=== PATIENT | male | born 1985 | race African-American/Black ===

== ENCOUNTER 2018-03-25 14:17 | Inpatient (IN) | payer OTHER ==
[~2018-03-25] VITALS: Ht 172.7 cm; Wt 79.5 kg
[2018-03-25 14:38] VITALS: Ht 172.7 cm; Wt 79.5 kg
--- NOTE | 2018-03-25 14:48 | ERD ---
ER Documentation Chief Complaint Chief Complaint R90, bs 125, Seizure [id number], chest pain, no visible trauma, no distress HPI The patient is a 32-year-old male, presenting to the ER because of possible seizure at 7-11. He was postictal when EMS arrived, he was still postictal when he arrived to the ER but became coherent shortly after. He stated that he fell did not remember exactly what happened, he denies tongue bite, urinary/fecal incontinence, denies headache, facial pain, neck pain. He complains of substernal chest pain without radiation, denies chest pain with vomiting/radiation/exertion/diaphoresis, dyspnea, abdominal pain, vomiting, dizzy, diarrhea. He denies illicit drug, smokes and drinks Past medical history: History of CHF, chronic kidney disease, hypertension Past surgical history: Right inguinal herniorrhaphy ROS All systems reviewed and are negative except as per history of present illness. Medications Home Meds Reported Medications Hydralazine Hcl* (Hydralazine Hcl*) 100 Mg Tablet, 100 MG PO Q8 PRN for ELEVATED BLOOD PRESSURE, #90 TAB 03/25/18 Allergies Allergies: Coded Allergies: No Known Allergy (Unverified , 03/25/18) PMhx/Soc Hx Miscellaneous Medical Probl: Yes (Seizure) Hx Alcohol Use: No Hx Substance Use: No Hx Tobacco Use: No Smoking Status: Never smoker Physical Exam Vitals Vital Signs Date Temp Pulse Resp B/P (MAP) Pulse Ox O2 O2 Flow FiO2 Time Delivery Rate 03/25/18 83 22 159/109 96 Room Air 18:13 (126) 03/25/18 76 24 171/123 97 Room Air 16:00 (139) 03/25/18 98.4 85 22 181/126 97 14:38 (144) Physical Exam Const: No acute distress. Head: Atraumatic. Eyes: Normal Conjunctiva. ENT: Normal External Ears, Nose and Mouth. Neck: Full range of motion. No meningismus. Resp: Clear to auscultation bilaterally. Cardio: Regular rate and rhythm. Abd: Soft, non distended, normal bowel sounds, non tender. Skin: No petechiae or rashes. Back: No midline or flank tenderness. Ext: No cyanosis, or edema. Neur: Awake and alert. No focal deficit Psych: Normal Mood and Affect. Result Diagram: 03/25/18 1520 03/25/18 1520 Results 24 hrs Laboratory Tests Test 03/25/18 14:32 03/25/18 15:20 03/25/18 15:30 Bedside Glucose 98 mg/dL White Blood Count 5.9 10^3/ul Red Blood Count 5.43 10^6/ul Hemoglobin 12.6 g/dl Hematocrit 39.9 % Mean Corpuscular Volume 73.5 fl Mean Corpuscular Hemoglobin 23.2 pg Mean Corpuscular 31.6 g/dl Hemoglobin Concent Red Cell Distribution Width 18.6 % Platelet Count 258 10^3/UL Mean Platelet Volume 12.0 fl Immature Granulocytes % 1.200 % Neutrophils % 65.1 % Lymphocytes % 19.9 % Monocytes % 11.8 % Eosinophils % 1.7 % Basophils % 0.3 % Nucleated Red Blood Cells % 0.0 /100WBC Immature Granulocytes # 0.070 10^3/ul Neutrophils # 3.8 10^3/ul Lymphocytes # 1.2 10^3/ul Monocytes # 0.7 10^3/ul Eosinophils # 0.1 10^3/ul Basophils # 0.0 10^3/ul Nucleated Red Blood Cells # 0.0 10^3/ul Prothrombin Time 12.9 Sec Prothrombin Time Ratio 1.0 INR International Normalized Ratio 0.96 Activated Partial Thromboplast 27.4 Sec Time Sodium Level 140 mmol/L Potassium Level 3.1 mmol/L Chloride Level 99 mmol/L Carbon Dioxide Level 25 mmol/L Anion Gap 16 Blood Urea Nitrogen 42 mg/dl Creatinine 4.67 mg/dl Est Glomerular Filtrat Rate mL/min 15 mL/min Glucose Level 103 mg/dl Calcium Level 9.6 mg/dl Total Bilirubin 0.0 mg/dl Direct Bilirubin 0.00 mg/dl Indirect Bilirubin 0.0 mg/dl Aspartate Amino Transf (AST/SGOT) 39 IU/L Alanine 6 IU/L Aminotransferase (ALT/SGPT) Alkaline Phosphatase 75 IU/L Troponin I 0.142 ng/ml Total Protein 7.9 g/dl Albumin 4.1 g/dl Globulin 3.80 g/dl Albumin/Globulin Ratio 1.07 Ethyl Alcohol Level < 10.0 mg/dl Urine Opiates Screen NEGATIVE Urine Barbiturates NEGATIVE Urine Amphetamines Screen POSITIVE Urine Benzodiazepines Screen NEGATIVE Urine Cocaine Screen NEGATIVE Urine Cannabinoids POSITIVE Current Medications Medications Dose Sig/Jen Start Time Status Last (Trade) Ordered Route PRN Stop Time Admin Dose Reason Admin 100 ml @ ONCE ONCE 03/25/18 DC 03/25/18 Levetiracetam 400 mls/hr IVPB 15:00 15:24 03/25/18 15:14 Sodium 1,000 ml @ Q10H IV 03/25/18 DC Chloride 100 mls/hr 18:46 03/25/18 18:59 IV Flush 3 ml PER 03/25/18 (NS 3 ml) PROTOCOL IV 19:00 Ondansetron 4 mg Q6H PRN 03/25/18 03/25/18 HCl (Zofran IV NAUSEA 19:00 19:10 Inj) AND/OR VOMITING 650 mg Q6H PRN 03/25/18 Acetaminophen PO PAIN 19:00 (Tylenol LEVEL 1-3 OR Tab) FEVER 1 tab Q6H PRN 03/25/18 Acetaminophen PO MODERATE 19:00 / PAIN LEVEL Hydrocodone 4-6 Bitart ([place] (5/325)) Morphine 2 mg Q4H PRN 03/25/18 03/25/18 Sulfate IV SEVERE 19:00 19:11 (morphine) PAIN LEVEL 7-10 Docusate 100 mg Q12H PRN 03/25/18 Sodium PO 19:00 (Colace) CONSTIPATION Zolpidem 5 mg QHS PRN 03/25/18 Tartrate PO SLEEP 19:00 (Ambien) 100 ml @ Q12 IVPB 03/25/18 Levetiracetam 400 mls/hr 21:00 1,011.2 ml DAILY@09 03/26/18 Multivitamins @ 125 mls/ IVPB 09:00 10 hr ml/Thiamine HCl 100 mg/Folic Acid 1 mg/Sodium Chloride Lorazepam 1 mg Q2H PRN 03/25/18 03/25/18 (Ativan) IV CONTROL 19:00 19:30 WITHDRAWAL SYMPTOMS Potassium 1,015 ml @ Q10H9M IV 03/25/18 03/25/18 Chloride 30 100 mls/hr 19:00 19:31 meq/ Sodium Chloride Procedures/[address] [address] Radiology Main Line: [phone] DIAGNOSTIC IMAGING REPORT Patient: DONAVON LEE : 1985 Age: 32 Sex: M MR #: [id number] DOS: 03/25/18 1455 Ordering MD: LINK HERRERA MD Location: E/R Room/Bed: PROCEDURE: CT Brain without contrast. CLINICAL INDICATION: Altered mental status, seizures TECHNIQUE: Routine CT scan of the brain was performed on a high resolution multi detector scanner without intravenous contrast. One or more of the following dose reduction techniques were used: Automated exposure control; Adjustment of the mA and/or kV according to patient size; Use of iterative recon struction technique. CTDI = 38 mGy. DLP = 634 mGy-cm. DICOM images are available. COMPARISON: No prior relevant examinations are available for comparison. FINDINGS: Hemorrhage: 14 mm acute intraparenchymal hematoma within the inferior right frontal lobe. Acute ischemic changes: No evidence of acute ischemic changes. Mass effect: None. Parenchymal volume: Within normal limits for age. Ventricular system: Concordant with parenchymal volume. Chronic changes: Advanced white matter changes are present which are premature for the patient's age. Extracranial soft tissues: Minimal soft tissue swelling of the scalp at the vertex. Calvarium: No fractures. Paranasal sinuses: Visualized paranasal sinuses are clear. Mastoid air cells: Visualized mastoid air cells are clear. IMPRESSION: 14 mm acute intraparenchymal hematoma within the inferior right frontal lobe. Advanced white matter changes are present which are premature for the patient's age. MRI of the brain with and without contrast recommended for further evaluation. Critical results were discussed with Link Lowe by telephone 03/25/2018 4:18:[address] Mason Perkins RPTAT: AADD .Mason Perkins MD, MD Date Time Electronically viewed and signed by .Mason Perkins MD, on 03/25/2018 16:21 .B/ CC: LINK HERRERA MD [phone] [place] [address] Radiology Main Line: [phone] DIAGNOSTIC IMAGING REPORT Patient: DONAVON LEE : 1985 Age: 32 Sex: M MR #: [id number] DOS: 03/25/18 1455 Ordering MD: LINK HERRERA MD Location: E/R Room/Bed: PROCEDURE: XR Chest. CLINICAL INDICATION: Chest pain TECHNIQUE: Single portable view of the chest was obtained COMPARISON: None FINDINGS: The heart is enlarged. There is a stent graft in the thoracic aorta. The lungs are clear. There is no pleural effusion or pneumothorax. RPTAT: AA IMPRESSION: Moderate to marked Cardiomegaly. Stent graft within the thoracic aorta. .Eber Grewal MD, Date Time Electronically viewed and signed by .Eber Grewal MD, MD on 03/25/2018 15:31 .S/ CC: LINK HERRERA MD [id number] EK:42 pm Read by emergency physician Rate/Rhythm: Normal Sinus Rhythm 80 beats/min QRS, ST, T-waves: No ST elevation, no T inversion, TAMMY, prolong QT, inferolateral ST/T abnormality Impression: Abnormal EKG EK:14 pm Read by emergency physician Rate/Rhythm: Normal Sinus Rhythm 79 beats/min QRS, ST, T-waves: No ST elevation, no T inversion, TAMMY, prolong QT, infe rolateral ST/T abnormality Impression: Abnormal EKG MEDICAL MAKING DECISION: The patient is a 32-year-old male, presenting with acute intraparenchymal hemorrhage, acute new onset seizure, acute hypokalemia, acute troponin elevation, polysubstance. He was treated with Keppra 1 g IV for acute new onset seizure, aspirin was not given due to intraparenchymal hemorrhage Consultation: I discussed the patient with the on-call neurosurgeon Dr. Gallardo at 5 PM, who was made aware of the lab, the treatment, the patient condition and he accepted the consult. He requested for the MRI with and without contrast of the brain The differential diagnoses considered include but are not limited to subarachnoid hemorrhage, occult trauma, CVA, meningitis, encephalitis, hypertension, tension, migraine, cluster, narcotic withdrawal, cervical spine disease, ACS, NSTEMI, electrolyte abnormality, cardiac arrhythmia. Critical Care: Time: 35 minutes excluding all billable procedures. Treatments/Evaluations: Close monitoring and treatment of unstable vital signs, cardiorespiratory, and neurologic status, while maintaining tight balance of fluid, respiratory, and cardiac interventions. Departure Diagnosis: Primary Impression: Intraparenchymal hematoma of brain Additional Impressions: New onset seizure Elevated troponin Hypokalemia Polysubstance abuse Anemia Condition: Critical Comments I discussed the findings with the patient. I discussed the patient with the hospitalist Dr Ruffin at 5:15 pm . who was made aware of the lab, the treatment, the patient condition. The patient is admitted to ICU Disclaimer: Inadvertent spelling and grammatical errors are likely due to EHR/dictation software use and do not reflect on the overall quality of patient care. Also, please note that the electronic time recorded on this note does not necessarily reflect the actual time of the patient encounter. LINK HERRERA MD Mar 25, 2018 14:48
[2018-03-25] MEDS ORDERED: HYDR100T25 PO (14:53)
[2018-03-25] MEDS ORDERED: LEVETIRACETAM 1000 MG (PMX) 100 ML IVPB ONE (15:00)
[2018-03-25] MEDS ORDERED: SOD CHLORIDE 0.9% 1,000 ML IV SCH (18:46)
--- NOTE | 2018-03-25 18:46 | HP ---
Date/Time of Note Date/Time of Note DATE: 03/25/18 TIME: 18:40 Assessment/Plan VTE Prophylaxis SCD applied (from Nsg): Yes Pharmacological prophylaxis: NA/contraindicated Pharm contraindication: bleeding Lines/Catheters IV Catheter Type (from Nrsg): Saline Lock Assessment/Plan Hospital Course 1. Intra-parenchymal hematoma within the inferior right frontal lobe Neurosurgery contacted in the ER, recommendation is for MRI of the brain Keppra IV N.p.o. and IV fluids 2. Seizure Etiology of seizure secondary to alcohol abuse and/or ICH Unclear if syncope and fall caused ICH or if seizure is secondary to brain bleed Keppra IV 3. Alcohol abuse Ativan as needed Banana bag 4. Microcytic anemia Check iron panel 5. Hypokalemia Replete 6. Acute versus chronic kidney disease Baseline unknown IV fluids Consider neurology consultation in a.m. 7. NSTEMI likely type II Monitor troponin Consider cardiology consultation in a.m. Heparin contraindicated secondary to ICH Prophylaxis: SCDs Result Diagram: 03/25/18 1520 03/25/18 1520 Results 24hrs Laboratory Tests Test 03/25/18 14:32 03/25/18 15:20 03/25/18 15:30 Bedside Glucose 98 White Blood Count 5.9 Red Blood Count 5.43 Hemoglobin 12.6 L Hematocrit 39.9 L Mean Corpuscular Volume 73.5 L Mean Corpuscular Hemoglobin 23.2 L Mean Corpuscular Hemoglobin Concent 31.6 L Red Cell Distribution Width 18.6 H Platelet Count 258 Mean Platelet Volume 12.0 H Immature Granulocytes % 1.200 H Neutrophils % 65.1 Lymphocytes % 19.9 Monocytes % 11.8 H Eosinophils % 1.7 Basophils % 0.3 Nucleated Red Blood Cells % 0.0 Immature Granulocytes # 0.070 H Neutrophils # 3.8 Lymphocytes # 1.2 Monocytes # 0.7 Eosinophils # 0.1 Basophils # 0.0 Nucleated Red Blood Cells # 0.0 Prothrombin Time 12.9 Prothrombin Time Ratio 1.0 INR International Normalized Ratio 0.96 Activated Partial Thromboplast Time 27.4 Sodium Level 140 Potassium Level 3.1 L Chloride Level 99 Carbon Dioxide Level 25 Anion Gap 16 H Blood Urea Nitrogen 42 H Creatinine 4.67 H Est Glomerular Filtrat Rate mL/min 15 L Glucose Level 103 Calcium Level 9.6 Total Bilirubin 0.0 L Direct Bilirubin 0.00 Indirect Bilirubin 0.0 Aspartate Amino Transf (AST/SGOT) 39 Alanine Aminotransferase (ALT/SGPT) 6 L Alkaline Phosphatase 75 Troponin I 0.142 *H Total Protein 7.9 Albumin 4.1 Globulin 3.80 H Albumin/Globulin Ratio 1.07 Ethyl Alcohol Level < 10.0 H Urine Opiates Screen NEGATIVE Urine Barbiturates NEGATIVE Urine Amphetamines Screen POSITIVE Urine Benzodiazepines Screen NEGATIVE Urine Cocaine Screen NEGATIVE Urine Cannabinoids POSITIVE HPI/ROS Admit Date/Time Admit Date/Time March 25, 2018 Hx of Present Illness Patient is a 32-year-old male with a history of alcohol abuse who [place] a seizure at the [place] and fell to the ground. Patient was brought to the ER and CT head showed a 14 mm acute intraparenchymal hematoma within the in ferior right frontal lobe. Neurosurgery was consulted and recommendation was for MRI. Patient does report having had a drink today, patient denies any history of seizures and is currently fatigued. Patient has no other complaints this time. ROS Subjective hx not possible: other (Fatigued) PMH/Family/Social Past Medical History Alcohol abuse Coded Allergies: No Known Allergy (Unverified , 03/25/18) Past Surgical History Groin surgery, unclear what type Family History Significant Family History: no pertinent family hx Social History Alcohol Use: heavy Smoking Status: Current every day smoker Drug Use: none Exam/Review of Systems Vital Signs Vitals Vital Signs Date Temp Pulse Resp B/P (MAP) Pulse Ox O2 O2 Flow FiO2 Time Delivery Rate 03/25/18 83 22 159/109 96 Room Air 18:13 (126) 03/25/18 98.4 14:38 Exam Constitutional: alert Respiratory: clear to auscultation Cardiovascular: regular rate and rhythm Gastrointestinal: soft; No distended Musculoskeletal: nl extremities to inspection ALEXIS DEGROOT Mar 25, 2018 18:46
[2018-03-25] MEDS ORDERED: NACL 0.9% 3 ML SYG IV SCH (19:00)
[2018-03-25] MEDS ORDERED: ONDANSETRON 4 MG INJ IV PRN (19:00)
[2018-03-25] MEDS ORDERED: LORAZEPAM 2 MG INJ IV PRN (19:00)
[2018-03-25] MEDS ORDERED: ACETAMINOPHEN 325 MG TAB PO PRN (19:00)
[2018-03-25] MEDS ORDERED: morphine 2 MG INJ IV PRN (19:00)
[2018-03-25] MEDS ORDERED: ZOLPIDEM 5 MG TAB PO PRN (19:00)
[2018-03-25] MEDS ORDERED: DOCUSATE SODIUM 100 MG CAP PO PRN (19:00)
[2018-03-25] MEDS: POTASSIUM CHLORIDE 30 MEQ in SOD CHLORIDE 0.9% 1,000 ML IV SCH (19:31)
[2018-03-25] MEDS ORDERED: hydrALAzine 20 MG INJ ONE (20:53)
--- NOTE | 2018-03-25 20:58 | CONS ---
Date/Time of Note Date/Time of Note DATE: 03/25/18 TIME: 20:54 Assessment/Plan Assessment/Plan Assessment/Plan R inf frontal IPH No mass effect and no indication for intervention based on size of IPH. However ?etiology unclear. Recommend MRI and ICU admission overnight. If no expansion of clot he may leave ICU tomorrow. He should have follow up with me and with neurology for management of his seizure d/o. Result Diagram: 03/25/18 1520 03/25/18 1520 Results 24hrs Laboratory Tests Test 03/25/18 14:32 03/25/18 15:20 03/25/18 15:30 Bedside Glucose 98 White Blood Count 5.9 Red Blood Count 5.43 Hemoglobin 12.6 L Hematocrit 39.9 L Mean Corpuscular Volume 73.5 L Mean Corpuscular Hemoglobin 23.2 L Mean Corpuscular Hemoglobin Concent 31.6 L Red Cell Distribution Width 18.6 H Platelet Count 258 Mean Platelet Volume 12.0 H Immature Granulocytes % 1.200 H Neutrophils % 65.1 Lymphocytes % 19.9 Monocytes % 11.8 H Eosinophils % 1.7 Basophils % 0.3 Nucleated Red Blood Cells % 0.0 Immature Granulocytes # 0.070 H Neutrophils # 3.8 Lymphocytes # 1.2 Monocytes # 0.7 Eosinophils # 0.1 Basophils # 0.0 Nucleated Red Blood Cells # 0.0 Prothrombin Time 12.9 Prothrombin Time Ratio 1.0 INR International Normalized Ratio 0.96 Activated Partial Thromboplast Time 27.4 Sodium Level 140 Potassium Level 3.1 L Chloride Level 99 Carbon Dioxide Level 25 Anion Gap 16 H Blood Urea Nitrogen 42 H Creatinine 4.67 H Est Glomerular Filtrat Rate mL/min 15 L Glucose Level 103 Calcium Level 9.6 Total Bilirubin 0.0 L Direct Bilirubin 0.00 Indirect Bilirubin 0.0 Aspartate Amino Transf (AST/SGOT) 39 Alanine Aminotransferase (ALT/SGPT) 6 L Alkaline Phosphatase 75 Troponin I 0.142 *H Total Protein 7.9 Albumin 4.1 Globulin 3.80 H Albumin/Globulin Ratio 1.07 Ethyl Alcohol Level < 10.0 H Urine Opiates Screen NEGATIVE Urine Barbiturates NEGATIVE Urine Amphetamines Screen POSITIVE Urine Benzodiazepines Screen NEGATIVE Urine Cocaine Screen NEGATIVE Urine Cannabinoids POSITIVE Consultation Date/Type/Reason Admit Date/Time March 25, 2018 Date of Consultation: Mar 25, 2018 Type of Consult neurosurgery Reason for Consultation right frontal IPH Hx of Present Illness Patient is 32 year old male who had seizure in 09-18 (witnessed by cousin) and subsequent GLF. He admits to ETOh and drug use. He has history of recent admissino (within past year) where he was told he had a "brain bleed". He denies previous history of seizure. CT shows small (14mm) right inf frontal IPH. No mass effect. Labs wnl. MRI pending. Past Medical History Medications Current Medications IV Flush (NS 3 ml) 3 ml PER PROTOCOL IV ; Start 03/25/18 at 19:00 Ondansetron HCl (Zofran Inj) 4 mg Q6H PRN IV NAUSEA AND/OR VOMITING Last administered on 03/25/18at 19:10; Admin Dose 4 MG; Start 03/25/18 at 19:00 Acetaminophen (Tylenol Tab) 650 mg Q6H PRN PO PAIN LEVEL 1-3 OR FEVER; Start 03/25/18 at 19:00 Acetaminophen/ Hydrocodone Bitart ([place] (5/325)) 1 tab Q6H PRN PO MODERATE PAIN LEVEL 4-6; Start 03/25/18 at 19:00 Morphine Sulfate (morphine) 2 mg Q4H PRN IV SEVERE PAIN LEVEL 7-10 Last administered on 03/25/18at 19:11; Admin Dose 2 MG; Start 03/25/18 at 19:00 Docusate Sodium (Colace) 100 mg Q12H PRN PO CONSTIPATION; Start 03/25/18 at 19:00 Zolpidem Tartrate (Ambien) 5 mg QHS PRN PO SLEEP; Start 03/25/18 at 19:00 Levetiracetam 100 ml @ 400 mls/hr Q12 IVPB ; Start 03/25/18 at 21:00 Multivitamins 10 ml/Thiamine HCl 100 mg/Folic Acid 1 mg/Sodium Chloride 1,011.2 ml @ 125 mls/ hr DAILY@09 IVPB ; Start 03/26/18 at 09:00 Lorazepam (Ativan) 1 mg Q2H PRN IV CONTROL WITHDRAWAL SYMPTOMS Last administe red on 03/25/18at 19:30; Admin Dose 1 MG; Start 03/25/18 at 19:00 Potassium Chloride 30 meq/ Sodium Chloride 1,015 ml @ 100 mls/hr Q10H9M IV Last administered on 03/25/18at 19:31; Admin Dose 100 MLS/HR; Start 03/25/18 at 19:00 Allergies: Coded Allergies: No Known Allergy (Unverified , 03/25/18) Social History Alcohol Use: heavy Smoking Status: Current every day smoker Drug Use: none Exam/Review of Systems Vital Signs Vitals Vital Signs Date Temp Pulse Resp B/P (MAP) Pulse Ox O2 O2 Flow FiO2 Time Delivery Rate 03/25/18 83 18 176/127 97 Room Air 20:51 (143) 03/25/18 98.4 14:38 Exam the patient is sleepy and amnestic for event, but is neurological exam currently non-focal and non lateralizing. Constitutional: alert, oriented, well developed Psych: no complaints, nl mood/affect Head: normocephalic, atraumatic Eyes: nl conjunctiva, EOMI, nl lids ENMT: nl external ears & nose, nl lips & teeth Musculoskeletal: nl extremities to inspection Neurological: TILE DECORATOR II-XII intact, nl speech, nl strength Additional Comments No evidence of trauma/ no mujica sign Medications Medications Current Medications IV Flush (NS 3 ml) 3 ml PER PROTOCOL IV ; Start 03/25/18 at 19:00 Ondansetron HCl (Zofran Inj) 4 mg Q6H PRN IV NAUSEA AND/OR VOMITING Last administered on 03/25/18at 19:10; Admin Dose 4 MG; Start 03/25/18 at 19:00 Acetaminophen (Tylenol Tab) 650 mg Q6H PRN PO PAIN LEVEL 1-3 OR FEVER; Start 03/25/18 at 19:00 Acetaminophen/ Hydrocodone Bitart ([place] (5/325)) 1 tab Q6H PRN PO MODERATE PAIN LEVEL 4-6; Start 03/25/18 at 19:00 Morphine Sulfate (morphine) 2 mg Q4H PRN IV SEVERE PAIN LEVEL 7-10 Last administered on 03/25/18at 19:11; Admin Dose 2 MG; Start 03/25/18 at 19:00 Docusate Sodium (Colace) 100 mg Q12H PRN PO CONSTIPATION; Start 03/25/18 at 19:00 Zolpidem Tartrate (Ambien) 5 mg QHS PRN PO SLEEP; Start 1/15/19 at 19:00 Levetiracetam 100 ml @ 400 mls/hr Q12 IVPB ; Start 03/25/18 at 21:00 Multivitamins 10 ml/Thiamine HCl 100 mg/Folic Acid 1 mg/Sodium Chloride 1,011.2 ml @ 125 mls/ hr DAILY@09 IVPB ; Start 03/26/18 at 09:00 Lorazepam (Ativan) 1 mg Q2H PRN IV CONTROL WITHDRAWAL SYMPTOMS Last administered on 03/25/18at 19:30; Admin Dose 1 MG; Start 03/25/18 at 19:00 Potassium Chloride 30 meq/ Sodium Chloride 1,015 ml @ 100 mls/hr Q10H9M IV Last administered on 03/25/18at 19:31; Admin Dose 100 MLS/HR; Start 03/25/18 at 19:00 CHAN SANTOYO MD Mar 25, 2018 20:58
[2018-03-25] MEDS ORDERED: hydrALAzine 20 MG INJ IV ONE ×2 (21:00→23:30)
[2018-03-26] VITALS (29 sets, daily range): BP systolic 99–177; BP diastolic 77–118; PULSE 69–95; RESP 18–28
[2018-03-26] MEDS: LEVETIRACETAM 1000 MG (PMX) 100 ML IVPB SCH ×3 (00:11→20:35)
[2018-03-26] MEDS ORDERED: LABETALOL HCL 20MG INJ IV ONE (00:30)
[2018-03-26] MEDS: HYDROCODONE/APAP (5/325) TAB PO PRN ×3 (01:47→12:37)
[2018-03-26] MEDS: LABETALOL HCL 20MG INJ IV PRN ×3 (04:24→10:37)
[2018-03-26] MEDS: POTASSIUM CHLORIDE 30 MEQ in SOD CHLORIDE 0.9% 1,000 ML IV SCH ×2 (05:09→15:28)
[2018-03-26] MEDS ORDERED: hydrALAzine 20 MG INJ IV ONE (05:30)
[2018-03-26] MEDS: POTASSIUM CHLORIDE 100 ML IVPB SCH ×2 (06:25→08:25)
[2018-03-26] MEDS ORDERED: (Nursing Note) XX SCH (07:30)
[2018-03-26] MEDS: AMLODIPINE 5 MG TAB PO SCH (08:24)
[2018-03-26] MEDS ORDERED: POTASSIUM CHLORIDE 20 MEQ POWDER FOR ORAL SOLN PO SCH (08:30)
[2018-03-26] MEDS: MULTIVITAMINS 10 ML, FOLIC ACID 1 MG in SOD CHLORIDE 0.9% 1,000 ML IVPB SCH (09:22)
[2018-03-26] MEDS: hydrALAzine 20 MG INJ IV PRN ×2 (09:22→18:38)
[2018-03-26] MEDS: METOPROLOL 25 MG TAB PO SCH ×2 (11:47→20:35)
[2018-03-26] MEDS: CHLORDIAZEPOXIDE 5 MG CAP PO SCH ×2 (12:37→20:35)
[2018-03-26] MEDS ORDERED: POTASSIUM CHLORIDE (SR) 20 MEQ TAB PO ONE ×2 (14:00→16:00)
--- NOTE | 2018-03-26 14:13 | PN ---
Date/Time of Note Date/Time of Note DATE: 03/26/18 TIME: 14:09 Assessment/Plan VTE Prophylaxis Risk score (from [facility])>0 risk: 1 SCD applied (from [facility]): Yes Pharmacological prophylaxis: NA/contraindicated Pharm contraindication: bleeding Lines/Catheters IV Catheter Type (from [facility]): Peripheral IV Urinary Cath still in place: No Assessment/Plan Hospital Course 1. Intra-parenchymal hematoma within the inferior right frontal lobe Neurosurgery consultation appreciated, follow-up with recommendations MRI brain shows stable intraparenchymal hemorrhage, vasogenic edema is noted with mild local mass-effect Keppra IV N.p.o. and IV fluids 2. Seizure No further episodes overnight Etiology of seizure secondary to alcohol abuse and/or ICH Unclear if syncope and fall caused ICH or if seizure is secondary to brain bleed Keppra IV 3. Alcohol abuse Ativan as needed Banana bag 4. Microcytic anemia Check iron panel 5. Hypokalemia Replete 6. Acute versus chronic kidney disease-improving Baseline unknown Continue IV fluids Consider neurology consultation if renal function does not improve with fluids 7. NSTEMI likely type II Monitor troponin Heparin contraindicated secondary to ICH Patient with reproducible chest pain likely secondary to fall from syncopal episode Prophylaxis: SCDs Result Diagram: 03/26/18 0454 03/26/18 1300 Results 24hrs Laboratory Tests Test 03/25/18 14:32 03/25/18 15:20 03/25/18 15:30 03/26/18 04:54 Bedside Glucose 98 White Blood Count 5.9 5.2 Red Blood Count 5.43 5.12 Hemoglobin 12.6 L 11.8 L Hematocrit 39.9 L 36.7 L Mean Corpuscular 73.5 L 71.7 L Volume Mean Corpuscular 23.2 L 23.0 L Hemoglobin Mean Corpuscular 31.6 L 32.2 Hemoglobin Concent Red Cell 18.6 H 17.7 H Distribution Width Platelet Count 258 247 Mean Platelet Volume 12.0 H 11.4 H Immature 1.200 H 0.400 Granulocytes % Neutrophils % 65.1 64.7 Lymphocytes % 19.9 19.5 Monocytes % 11.8 H 13.7 H Eosinophils % 1.7 1.5 Basophils % 0.3 0.2 Nucleated Red Blood 0.0 0.0 Cells % Immature 0.070 H 0.020 Granulocytes # Neutrophils # 3.8 3.3 Lymphocytes # 1.2 1.0 Monocytes # 0.7 0.7 Eosinophils # 0.1 0.1 Basophils # 0.0 0.0 Nucleated Red Blood 0.0 0.0 Cells # Prothrombin Time 12.9 Prothrombin Time 1.0 Ratio INR International 0.96 Normalized Ratio Activated 27.4 Partial Thromboplast Time Sodium Level 140 141 Potassium Level 3.1 L 2.7 *L Chloride Level 99 102 Carbon Dioxide Level 25 28 Anion Gap 16 H 11 Blood Urea Nitrogen 42 H 35 H Creatinine 4.67 H 3.49 #H Est Glomerular 15 L 25 L Filtrat Rate mL/min Glucose Level 103 103 Calcium Level 9.6 8.9 Total Bilirubin 0.0 L Direct Bilirubin 0.00 Indirect Bilirubin 0.0 Aspartate Amino 39 Transf (AST/SGOT) Alanine 6 L Aminotransferase (AL T/SGPT) Alkaline Phosphatase 75 Troponin I 0.142 *H 0.185 *H Total Protein 7.9 Albumin 4.1 Globulin 3.80 H Albumin/Globulin 1.07 Ratio Ethyl Alcohol Level < 10.0 H Urine Opiates Screen NEGATIVE Urine Barbiturates NEGATIVE Urine Amphetamines POSITIVE Screen Urine NEGATIVE Benzodiazepines Screen Urine Cocaine Screen NEGATIVE Urine Cannabinoids POSITIVE Hemoglobin A1c 5.6 Phosphorus Level 3.9 Magnesium Level 2.3 Iron Level 25 L Total Iron Binding 281 Capacity Percent Iron 9 L Saturation Test 03/26/18 13:00 Potassium Level 3.1 L Subjective 24 Hr Interval Summary Constitutional: no complaints Exam/Review of Systems Vital Signs Vitals Vital Signs Date Temp Pulse Resp B/P (MAP) Pulse Ox O2 O2 Flow FiO2 Time Delivery Rate 03/26/18 89 20 114/85 100 Room Air 14:00 (95) 03/26/18 98.7 12:00 Intake and Output 03/25/18 03/25/18 03/26/18 1515:00 23:00 07:00 IntakeIntake Total 875 ml OutputOutput Total 225 ml BalanceBalance 650 ml Exam Constitutional: alert, oriented Respiratory: clear to auscultation Cardiovascular: regular rate and rhythm Gastrointestinal: soft; No distended Musculoskeletal: nl extremities to inspection Medications Medications Current Medications IV Flush (NS 3 ml) 3 ml PER PROTOCOL IV ; Start 03/25/18 at 19:00 Ondansetron HCl (Zofran Inj) 4 mg Q6H PRN IV NAUSEA AND/OR VOMITING Last administered on 03/25/18 19:10; Admin Dose 4 MG; Start 03/25/18 at 19:00 Acetaminophen (Tylenol Tab) 650 mg Q6H PRN PO PAIN LEVEL 1-3 OR FEVER; Start 03/25/18 at 19:00 Acetaminophen/ Hydrocodone Bitart ([place] (5/325)) 1 tab Q6H PRN PO MODERATE PAIN LEVEL 4-6 Last administered on 03/26/18 12:37; Admin Dose 1 TAB; Start 03/25/18 at 19:00 Morphine Sulfate (morphine) 2 mg Q4H PRN IV SEVERE PAIN LEVEL 7-10 Last administered on 03/25/18 19:11; Admin Dose 2 MG; Start 03/25/18 at 19:00 Docusate Sodium (Colace) 100 mg Q12H PRN PO CONSTIPATION; Start 03/25/18 at 19:00 Zolpidem Tartrate (Ambien) 5 mg QHS PRN PO SLEEP; Start 03/25/18 at 19:00 Levetiracetam 100 ml @ 400 mls/hr Q12 IVPB Last administered on 03/26/18 10:22; Admin Dose 400 MLS/HR; Start 03/25/18 at 21:00 Multivitamins 10 ml/Folic Acid 1 mg/Sodium Chloride 1,010.2 ml @ 125 mls/ hr DAILY@09 IVPB Last administered on 03/26/18 09:22; Admin Dose 125 MLS/HR; Start 03/26/18 at 09:00 Lorazepam (Ativan) 1 mg Q2H PRN IV CONTROL WITHDRAWAL SYMPTOMS Last administered on 03/25/18 19:30; Admin Dose 1 MG; Start 03/25/18 at 19:00 Potassium Chloride 30 meq/ Sodium Chloride 1,015 ml @ 100 mls/hr Q10H9M IV Last administered on 03/25/18 19:31; Admin Dose 100 MLS/HR; Start 03/25/18 at 19:00 Labetalol HCl (Labetalol) 10 mg Q2H PRN IV SBP > 160 Last administered on 03/26/18 10:37; Admin Dose 10 MG; Start 03/26/18 at 00:30 Influenza Virus Vaccine Quadrival (Fluzone) 0.5 ml ONCE ONCE IM* ; Start 03/27/18 at 10:00; Stop 03/27/18 at 10:01 Miscellaneous Information 1 ea NOTE XX ; Start 03/26/18 at 07:30 Amlodipine Besylate (Norvasc) 5 mg DAILY PO Last administered on 03/26/18at 08:24; Admin Dose 5 MG; Start 03/26/18 at 09:00 Hydralazine HCl (Apresoline) 10 mg Q4H PRN IV HYPERTENSION Last administered on 03/26/18at 09:22; Admin Dose 10 MG; Start 03/26/18 at 09:00 Chlordiazepoxide (Librium) 10 mg TID PO ; Start 03/26/18 at 13:00 Metoprolol Tartrate (Lopressor) 25 mg BID PO Last administered on 03/26/18at 11:47; Admin Dose 25 MG; Start 03/26/18 at 11:41 Potassium Chloride (Klor-Con 20) 20 meq ONCE ONCE PO ; Start 03/26/18 at 16:00; Stop 03/26/18 at 16:01 ALEXIS DEGROOT Mar 26, 2018 14:13
--- NOTE | 2018-03-26 20:51 | CONS ---
Date/Time of Note Date/Time of Note DATE: 03/26/18 TIME: 20:48 Assessment/Plan Assessment/Plan Result Diagram: 03/26/18 0454 03/26/187 Results 24hrs Laboratory Tests Test 03/26/18 04:54 03/26/18 13:00 03/26/18 19:57 White Blood Count 5.2 Red Blood Count 5.12 Hemoglobin 11.8 L Hematocrit 36.7 L Mean Corpuscular Volume 71.7 L Mean Corpuscular Hemoglobin 23.0 L Mean Corpuscular Hemoglobin Concent 32.2 Red Cell Distribution Width 17.7 H Platelet Count 247 Mean Platelet Volume 11.4 H Immature Granulocytes % 0.400 Neutrophils % 64.7 Lymphocytes % 19.5 Monocytes % 13.7 H Eosinophils % 1.5 Basophils % 0.2 Nucleated Red Blood Cells % 0.0 Immature Granulocytes # 0.020 Neutrophils # 3.3 Lymphocytes # 1.0 Monocytes # 0.7 Eosinophils # 0.1 Basophils # 0.0 Nucleated Red Blood Cells # 0.0 Sodium Level 141 Potassium Level 2.7 *L 3.1 L 3.2 L Chloride Level 102 Carbon Dioxide Level 28 Anion Gap 11 Blood Urea Nitrogen 35 H Creatinine 3.49 #H Est Glomerular Filtrat Rate mL/min 25 L Glucose Level 103 Hemoglobin A1c 5.6 Calcium Level 8.9 Phosphorus Level 3.9 Magnesium Level 2.3 Iron Level 25 L Total Iron Binding Capacity 281 Percent Iron Saturation 9 L Troponin I 0.185 *H Consultation Date/Type/Reason Admit Date/Time Mar 25, 2018 at 17:37 Initial Consult Date 03/25/18 Type of Consult neurosurgery 24 HR Interval Summary Free Text/Dictation Patient is neurologically stable. MRI shows well demarcated IPH in r f lobe, minimal enhancement. Multiple GRE + lesions (~8). 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 I recommend no intervention at present, he can go home from NSGY point of view, but needs to follow up with me for repeat MRI & needs to follow up with neurology for seizure management. Patient was advised to call my office for follow up appointment after discharge. Thank you. Exam/Review of Systems Vital Signs Vitals Vital Signs Date Temp Pulse Resp B/P (MAP) Pulse Ox O2 O2 Flow FiO2 Time Delivery Rate 03/26/18 90 20:00 03/26/18 98.4 24 145/107 100 Room Air 20:00 (120) Intake and Output 03/25/18 03/25/18 03/26/18 1515:00 23:00 07:00 IntakeIntake Total 875 ml OutputOutput Total 225 ml BalanceBalance 650 ml Medications Medications Current Medications IV Flush (NS 3 ml) 3 ml PER PROTOCOL IV ; Start 03/25/18 at 19:00 Ondansetron HCl (Zofran Inj) 4 mg Q6H PRN IV NAUSEA AND/OR VOMITING Last administered on 03/25/18at 19:10; Admin Dose 4 MG; Start 03/25/18 at 19:00 Acetaminophen (Tylenol Tab) 650 mg Q6H PRN PO PAIN LEVEL 1-3 OR FEVER; Start 03/25/18 at 19:00 Acetaminophen/ Hydrocodone Bitart ([place] (5/325)) 1 tab Q6H PRN PO MODERATE PAIN LEVEL 4-6 Last administered on 03/26/18at 12:37; Admin Dose 1 TAB; Start 03/25/18 at 19:00 Morphine Sulfate (morphine) 2 mg Q4H PRN IV SEVERE PAIN LEVEL 7-10 Last administered on 03/25/18at 19:11; Admin Dose 2 MG; Start 03/25/18 at 19:00 Docusate Sodium (Colace) 100 mg Q12H PRN PO CONSTIPATION; Start 03/25/18 at 19:00 Zolpidem Tartrate (Ambien) 5 mg QHS PRN PO SLEEP; Start 03/25/18 at 19:00 Levetiracetam 100 ml @ 400 mls/hr Q12 IVPB Last administered on 03/26/18at 20:35; Admin Dose 400 MLS/HR; Start 03/25/18 at 21:00 Multivitamins 10 ml/Folic Acid 1 mg/Sodium Chloride 1,010.2 ml @ 125 mls/ hr DAILY@09 IVPB Last administered on 03/26/18at 09:22; Admin Dose 125 MLS/HR; Start 03/26/18 at 09:00 Lorazepam (Ativan) 1 mg Q2H PRN IV CONTROL WITHDRAWAL SYMPTOMS Last admi nistered on 03/25/18at 19:30; Admin Dose 1 MG; Start 03/25/18 at 19:00 Potassium Chloride 30 meq/ Sodium Chloride 1,015 ml @ 100 mls/hr Q10H9M IV Last administered on 03/26/18at 15:28; Admin Dose 100 MLS/HR; Start 03/25/18 at 19:00 Labetalol HCl (Labetalol) 10 mg Q2H PRN IV SBP > 160 Last administered on 03/26/18at 10:37; Admin Dose 10 MG; Start 03/26/18 at 00:30 Influenza Virus Vaccine Quadrival (Fluzone) 0.5 ml ONCE ONCE IM* ; Start 03/27/18 at 10:00; Stop 03/27/18 at 10:01 Miscellaneous Information 1 ea NOTE XX ; Start 03/26/18 at 07:30 Amlodipine Besylate (Norvasc) 5 mg DAILY PO Last administered on 03/26/18at 08:24; Admin Dose 5 MG; Start 03/26/18 at 09:00 Hydralazine HCl (Apresoline) 10 mg Q4H PRN IV HYPERTENSION Last administered on 03/26/18at 18:38; Admin Dose 10 MG; Start 03/26/18 at 09:00 Chlordiazepoxide (Librium) 10 mg TID PO Last administered on 03/26/18at 20:35; Admin Dose 10 MG; Start 03/26/18 at 13:00 Metoprolol Tartrate (Lopressor) 25 mg BID PO Last administered on 03/26/18at 20:35; Admin Dose 25 MG; Start 03/26/18 at 11:41 CHAN SANTOYO MD Mar 26, 2018 20:51
[2018-03-27] VITALS (11 sets, daily range): BP systolic 128–166; BP diastolic 70–113; PULSE 74–93; RESP 18–22
[2018-03-27] MEDS: POTASSIUM CHLORIDE 30 MEQ in SOD CHLORIDE 0.9% 1,000 ML IV SCH ×2 (01:30→10:53)
[2018-03-27] MEDS: hydrALAzine 20 MG INJ IV PRN ×2 (05:49→13:11)
[2018-03-27] MEDS: METOPROLOL 25 MG TAB PO SCH (08:00)
[2018-03-27] MEDS: CHLORDIAZEPOXIDE 5 MG CAP PO SCH ×2 (08:00→13:02)
[2018-03-27] MEDS: AMLODIPINE 5 MG TAB PO SCH (08:00)
[2018-03-27] MEDS: LEVETIRACETAM 1000 MG (PMX) 100 ML IVPB SCH (08:02)
[2018-03-27] MEDS: MULTIVITAMINS 10 ML, FOLIC ACID 1 MG in SOD CHLORIDE 0.9% 1,000 ML IVPB SCH (09:52)
[2018-03-27] MEDS ORDERED: INFLUENZA VIRUS VACCINE 0.5 ML (DISPENSING) IM* ONE (10:00)
[2018-03-27] MEDS ORDERED: POTASSIUM CHLORIDE (SR) 20 MEQ TAB PO STA (10:02)
[2018-03-27] MEDS ORDERED: LEVE100018 PO (10:42)
--- NOTE | 2018-03-27 10:44 | PDOCDIS ---
Discharge Instructions CONDITION [id number] Patient Condition: [id number] Good HOME CARE INSTRUCTIONS: [id number] Diet Instructions: [id number] Regular ACTIVITY: [id number] Activity Restrictions: Ulici4m No Restrictions FOLLOW UP/APPOINTMENTS Follow-up Plan FOLLOW UP WITH A PCP IN 1-2 WEEKS, FOLLOW UP WITH DR CHAN SANTOYO OF NEUROSURGERY ALEXIS DEGROOT Mar 27, 2018 10:44
[2018-03-27] MEDS ORDERED: AMLO-218 PO (11:39)
[2018-03-27] MEDS ORDERED: AMLODIPINE 5 MG TAB PO ONE (12:00)
--- NOTE | 2018-03-27 14:29 | DS ---
Date/Time of Note Date/Time of Note DATE: 03/27/18 TIME: 14:21 Discharge Summary Admission/Discharge Info Admit Date/Time Mar 25, 2018 at 17:37 Discharge Date/Time March 27, 2018 Discharge Diagnosis 1. Intra-parenchymal hematoma within the inferior right frontal lobe MRI shows well demarcated IPH in r f lobe, minimal enhancement. Multiple GRE + lesions (~8). 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 Seizure No further episodes Etiology of seizure secondary to ICH possibly exacerbated by alcohol abuse Status post Keppra IV DC with Keppra p.o. 3. Alcohol abuse No evidence of withdrawals Status post banana bag 4. Microcytic anemia Secondary to chronic disease 5. Hypokalemia Replete 6. Acute versus chronic kidney disease-improved Baseline unknown Status post IV fluids 7. NSTEMI likely type II Stable with no EKG changes Heparin contraindicated secondary to ICH Patient with reproducible chest pain secondary to fall from syncopal episode 8. Hypertension DC with Norvasc Patient Condition: Good Hospital Course Patient is a 32-year-old male with a history of alcohol abuse who [place] seizure at the [place] and fell to the ground. Patient was brought to the ER and CT head showed a 14 mm acute intraparenchymal hematoma within the inferior right frontal lobe. Neurosurgery was consulted and recommendation was for MRI. MRI showed well demarcated IPH in r f lobe, minimal enhancement. Multiple GRE + lesions (~8). 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 Neurosurgery did not recommend surgery at this time and recommended for patient to follow-up with neurosurgery as an outpatient. Patient was stable for DC, patient had no further seizures, on day of discharge patient's vitals, labs and physical exam are stable patient is no acute complaints and questions are answered. Alcohol cessation was advised. Home Meds Active Scripts Amlodipine Besylate* (Norvasc*) 10 Mg Tablet, 10 MG PO DAILY, #60 TAB Prov:ARGELIA DEGROOTZulay 03/27/18 Levetiracetam* (Keppra*) 1,000 Mg Tablet, 1000 MG PO BID, #60 TAB 1 Refill Prov:ALEXIS DEGROOT 03/27/18 Reported Medications Hydralazine Hcl* (Hydralazine Hcl*) 100 Mg Tablet, 100 MG PO Q8 PRN for ELEVATED BLOOD PRESSURE, #90 TAB 03/25/18 Follow-up Plan FOLLOW UP WITH A PCP IN 1-2 WEEKS, FOLLOW UP WITH DR CHAN SANTOYO OF NEUROSURGERY Primary Care Provider Not On Staff Doctor Time spent on discharge: > 30 minutes ALEXIS DEGROOT Mar 27, 2018 14:29
--- NOTE | 2018-03-27 21:46 | RADRPT ---
Vent Rate: 81 bpm RR Interval: 0 msec MA Interval: 178 msec QRS Duration: 86 msec QT Interval: 414 msec QTC Interval: 480 msec P-R-T [place]: 33 - 39 - 0 degrees Normal sinus rhythm Biatrial enlargement Left ventricular hypertrophy with repolarization abnormality Nonspecific ST abnormality Prolonged QT Abnormal ECG Electronically Signed By: Link Mark [id number]
== END 2018-03-27 15:25 | disposition home or self-care (01) | DRG 64 ==
LOC: E/R 14:17 → ICU 17:37 → 6WM 03-26 21:39
PROVIDERS: ADMIT Internal Medicine; ATTEND Internal Medicine
DX: I61.1 Nontraumatic intracerebral hemorrhage in hemisphere, cortical (principal); I21.4 Non-ST elevation (NSTEMI) myocardial infarction; Q04.8 Other specified congenital malformations of brain; R56.9 Unspecified convulsions; F10.10 Alcohol abuse, uncomplicated; D50.9 Iron deficiency anemia, unspecified; E87.6 Hypokalemia; I10 Essential (primary) hypertension
CPT/HCPCS: 36415; 70450; 70553; 71045; 80048; 80053; 80307; 82962; 83036; 83540; 83735; 84100; 84132; 84484; 85025; 85610; 85730; 87081; 90686; 93005; 96374; J0360; J1953; J2060; J2270; J2405; J3411; J3480; J7030

== ENCOUNTER 2018-04-04 12:26 | Emergency (ER) | payer OTHER ==
[~2018-04-04] VITALS: Wt 82.3 kg
[~2018-04-04 12:26] MED LIST: AMLO-218 PO; HYDR100T25 PO; LEVE100018 PO
--- NOTE | 2018-04-04 12:57 | ERD ---
ER Documentation Chief Complaint Chief Complaint CHEST PAIN, HEADACHE, ON AND OFF FOR SEVERAL DAYS HPI this is a 32-year-old male with a prior history of chronic kidney disease, who presents with on-and-off chest pain and headache for the last several days. Symptoms have been gradual in onset, his chest pain is nonexertional, dull, nonradiating, headache is not associated with any neurologic symptoms, he denies any fever, he has no history of trauma. He has no abdominal pain, nausea or vomiting. ROS All systems reviewed and are negative except as per history of present illness. Medications Home Meds Active Scripts Multivit/Ca Carb/B Cmplx/Fa* (Mee-Patt*) 1 Tab Tab, 1 TAB PO DAILY for 30 Days, TAB Prov:DONAVON FAIRBANKS MD 04/04/18 Potassium Chloride* (K-Dur*) 10 Meq Tab.prt.sr, 10 MEQ PO DAILY, #20 TAB Prov:DONAVON FAIRBANKS MD 04/04/18 Reported Medications Aspirin* (Aspirin* EC) 81 Mg Tablet.dr, 81 MG PO DAILY, TAB 04/04/18 Furosemide* (Furosemide*) 40 Mg Tablet, 40 MG PO DAILY, TAB 04/04/18 Carvedilol* (Carvedilol*) 25 Mg Tablet, 25 MG PO BID, #60 TAB 04/04/18 Atorvastatin* (Atorvastatin*) 40 Mg Tablet, 40 MG PO QHS, #30 TAB 04/04/18 Levetiracetam* (Levetiracetam*) 1,000 Mg Tablet, 1000 MG PO BID, TAB 04/04/18 Hydralazine Hcl* (Hydralazine Hcl*) 100 Mg Tablet, 100 MG PO BID, #90 TAB 04/04/18 Amlodipine Besylate* (Norvasc*) 5 Mg Tablet, 5 MG PO DAILY, TAB 04/04/18 Discontinued Reported Medications Hydralazine Hcl* (Hydralazine Hcl*) 100 Mg Tablet, 100 MG PO Q8 PRN for ELEVATED BLOOD PRESSURE, #90 TAB 03/25/18 Discontinued Scripts Amlodipine Besylate* (Norvasc*) 10 Mg Tablet, 10 MG PO DAILY, #60 TAB Prov:ALEXIS DEGROOT 03/27/18 Levetiracetam* (Keppra*) 1,000 Mg Tablet, 1000 MG PO BID, #60 TAB 1 Refill Prov:ALEXIS DEGROOT 03/27/18 Allergies Allergies: Coded Allergies: No Known Allergy (Unverified , 04/04/18) PMhx/Soc History of Surgery: No Anesthesia Reaction: No Hx Neurological Disorder: Yes (seizures) Hx Respiratory Disorders: No Hx Cardiac Disorders: Yes (HTN, CHF) Hx Psychiatric Problems: No Hx Miscellaneous Medical Probl: No Hx Alcohol Use: Yes Hx Substance Use: Yes Hx Tobacco Use: Yes Physical Exam Vitals Vital Signs Date Temp Pulse Resp B/P (MAP) Pulse Ox O2 O2 Flow FiO2 Time Delivery Rate 04/04/18 97.5 88 17 173/112 100 Room Air 15:00 (132) 04/04/18 97.5 88 17 142/102 100 12:34 (115) Physical Exam Const: No acute distress Head: Atraumatic Eyes: Normal Conjunctiva ENT: Normal External Ears, Nose and Mouth. Neck: Full range of motion. No meningismus. Resp: Clear to auscultation bilaterally Cardio: Regular rate and rhythm, no murmurs Abd: Soft, non tender, non distended. Normal bowel sounds Skin: No petechiae or rashes Back: No midline or flank tenderness Ext: No cyanosis, or edema Neur: Awake and alert, cranial nerves II through XII intact, no cerebellar ataxia Psych: Normal Mood and Affect Result Diagram: 04/04/18 1312 04/04/18 1312 Results 24 hrs Laboratory Tests Test 04/04/18 13:12 04/04/18 15:30 White Blood Count 6.1 10^3/ul Red Blood Count 5.56 10^6/ul Hemoglobin 12.8 g/dl Hematocrit 40.3 % Mean Corpuscular Volume 72.5 fl Mean Corpuscular Hemoglobin 23.0 pg Mean Corpuscular Hemoglobin Concent 31.8 g/dl Red Cell Distribution Width 18.2 % Platelet Count 234 10^3/UL Mean Platelet Volume 11.2 fl Immature Granulocytes % 0.200 % Neutrophils % 66.3 % Lymphocytes % 21.2 % Monocytes % 11.3 % Eosinophils % 0.7 % Basophils % 0.3 % Nucleated Red Blood Cells % 0.0 /100WBC Immature Granulocytes # 0.010 10^3/ul Neutrophils # 4.0 10^3/ul Lymphocytes # 1.3 10^3/ul Monocytes # 0.7 10^3/ul Eosinophils # 0.0 10^3/ul Basophils # 0.0 10^3/ul Nucleated Red Blood Cells # 0.0 10^3/ul Sodium Level 139 mmol/L Potassium Level 2.9 mmol/L Chloride Level 98 mmol/L Carbon Dioxide Level 31 mmol/L Anion Gap 10 Blood Urea Nitrogen 27 mg/dl Creatinine 3.94 mg/dl Est Glomerular Filtrat Rate mL/min 22 mL/min Glucose Level 106 mg/dl Calcium Level 9.4 mg/dl Total Bilirubin 0.1 mg/dl Direct Bilirubin 0.00 mg/dl Indirect Bilirubin 0.1 mg/dl Aspartate Amino Transf (AST/SGOT) 24 IU/L Alanine Aminotransferase (ALT/SGPT) 12 IU/L Alkaline Phosphatase 91 IU/L Troponin I 0.111 ng/ml 0.099 ng/ml Total Protein 7.8 g/dl Albumin 4.0 g/dl Globulin 3.80 g/dl Albumin/Globulin Ratio 1.05 Lipase 80 U/L Current Medications Medications Dose Sig/Jen Start Time Status Last (Trade) Ordered Route PRN Stop Time Admin Dose Reason Admin Potassium 40 meq ONCE STAT 04/04/18 DC 04/04/18 Chloride PO 14:06 14:51 (Klor-Con 20) 04/04/18 14:07 1,000 mg ONCE STAT 04/04/18 DC 04/04/18 Acetaminophen PO 14:44 14:51 (Tylenol 04/04/18 14:45 Tab) Procedures/MDM Is a 32-year-old male with a prior history of chronic kidney disease, hypertension, chronic hypokalemia who presents with intermittent headache and chest pain. I considered pulmonary embolism, aortic dissection, pneumothorax among other diagnoses. Evaluation for acute coronary syndrome was performed. The HEART score (www.mdcalc.com) was utilized for risk stratification and found to be = 3. Repeat EKG and troponin @ 3 hours were unchanged. Based on this evaluation the patients risk of major adverse cardiac events is <1%. Shared decision making occurred with patient and the decision has been made to discharge the patient for outpatient evaluation and functional study within 72 hours. In regards to symptoms, he had no neurologic deficits, and at this point I do not suspect an emergent cause for his headache such as meningitis, intracranial bleed, seizure, stroke. At discharge, the patient was tolerating oral intake, was pain-free and in no distress. Wrote prescription for multivitamin and for potassium as he has run out. EKG: Rate/Rhythm: Normal Sinus Rhythm QRS, ST, T-waves: No changes consistent w/ acute ischemia Impression: No evidence of ischemia or arrhythmia Departure Diagnosis: Primary Impression: Headache Headache type: unspecified Headache chronicity pattern: unspecified pattern Intractability: not intractable Qualified Codes: R51 - Headache Additional Impressions: Chest pain Chest pain type: unspecified Qualified Codes: R07.9 - Chest pain, unspecified Chronic kidney disease Chronic kidney disease stage: stage 3 (moderate) Qualified Codes: N18.3 - Chronic kidney disease, stage 3 (moderate) Condition: Stable DONAVON FAIRBANKS MD Apr 04, 2018 12:57
[2018-04-04] MEDS ORDERED: POTASSIUM CHLORIDE (SR) 20 MEQ TAB PO STA (14:06)
[2018-04-04] MEDS ORDERED: ACETAMINOPHEN 500 MG TAB PO STA (14:44)
[2018-04-04 15:00] VITALS: BP 173/112; PULSE 88; RESP 17
[2018-04-04] MEDS ORDERED: AMLO5TAB4 PO (15:19)
[2018-04-04] MEDS ORDERED: LEVE10006 PO (15:20)
[2018-04-04] MEDS ORDERED: ATOR40TA68 PO (15:20)
[2018-04-04] MEDS ORDERED: CARV25TA79 PO (15:20)
[2018-04-04] MEDS ORDERED: HYDR100T25 PO (15:20)
[2018-04-04] MEDS ORDERED: ASPI-817 PO (15:21)
[2018-04-04] MEDS ORDERED: FURO40TA4 PO (15:21)
[2018-04-04] MEDS ORDERED: POTA10TA37 PO (17:33)
[2018-04-04] MEDS ORDERED: NEPH PO (17:33)
== END 2018-04-04 17:40 | disposition home or self-care (01) ==
LOC: E/R 12:26
DX: R51 Headache (principal); N18.3 Chronic kidney disease, stage 3 (moderate); I50.9 Heart failure, unspecified; I11.0 Hypertensive heart disease with heart failure; I12.9 Hypertensive chronic kidney disease with stage 1 through stage 4 chronic kidney disease, or unspecified chronic kidney disease; Z79.82 Long term (current) use of aspirin
CPT/HCPCS: 80053; 83690; 84484; 85025; 93005; Z7502; Z7610

== ENCOUNTER 2018-07-07 12:19 | Emergency (ER) | payer SELFPAY ==
[~2018-07-07] VITALS: Ht 165.1 cm; Wt 78.3 kg
[~2018-07-07 12:19] MED LIST changes: -AMLO-218 PO; +AMLO5TAB4 PO; +ASPI-817 PO; +ATOR40TA68 PO; +CARV25TA79 PO; +FURO40TA4 PO; -LEVE100018 PO; +LEVE10006 PO; +NEPH PO; +POTA10TA37 PO
[2018-07-07 12:26] VITALS: BP 175/103; PULSE 90; RESP 18; Ht 165.1 cm; Wt 78.3 kg
== END 2018-07-07 16:50 | disposition left against medical advice (07) ==
LOC: E/R 12:19
DX: Z53.21 Procedure and treatment not carried out due to patient leaving prior to being seen by health care provider (principal)
CPT/HCPCS: 93005

== ENCOUNTER 2018-07-23 21:11 | Inpatient (IN) | payer OTHER ==
[~2018-07-23] VITALS: Ht 175.3 cm; Wt 78.1 kg
[2018-07-23] MEDS ORDERED: morphine 4 MG/ML VIAL IV STA (21:41)
[2018-07-23] MEDS ORDERED: ONDANSETRON 4 MG INJ IV STA ×2 (21:41→23:39)
[2018-07-23] MEDS ORDERED: LEVETIRACETAM 1000 MG (PMX) 100 ML IVPB STA (21:43)
[2018-07-23] MEDS ORDERED: SOD CHLORIDE 0.9% 500 ML IV STA (21:43)
[2018-07-23] MEDS ORDERED: hydrALAzine 20 MG INJ IV ONE (22:00)
[2018-07-23] MEDS ORDERED: NICARDipine HCL 30 MG CAPSULE PO ONE (22:00)
--- NOTE | 2018-07-23 22:16 | ERD ---
ER Documentation Chief Complaint Chief Complaint BIBRA from home,hypoglycemia,L chest sharp pain,HTN,SOB,hx CHF & sz HPI This a 33-year-old male with a history of hypertension, CHF, seizure who was laying on the couch with his significant other watching TV. She said they were talking and then he suddenly became quiet and started shaking and foaming at the mouth. She says she was witnessed him have a seizure for about a minute. He was postictal and she called EMS. There was a report of hypoglycemia but the patient does not have diabetes and his blood sugar was not low here. Patient is awake and saying that his chest hurts. He said that he ran out of his seizure medicine and has not been taking it and he does not know what the name of the seizure medicine is. He says he feels groggy as if he just had a seizure like h beto has had in the past. ROS All systems reviewed and are negative except as per history of present illness. Medications Home Meds Active Scripts Multivit/Ca Carb/B Cmplx/Fa* (Mee-Patt*) 1 Tab Tab, 1 TAB PO DAILY for 30 Days, TAB Prov:DONAVON FAIRBANKS MD 04/04/18 Potassium Chloride* (K-Dur*) 10 Meq Tab.prt.sr, 10 MEQ PO DAILY, #20 TAB Prov:DONAVON FAIRBANKS MD 04/04/18 Reported Medications Aspirin* (Aspirin* EC) 81 Mg Tablet.dr, 81 MG PO DAILY, TAB 04/04/18 Furosemide* (Furosemide*) 40 Mg Tablet, 40 MG PO DAILY, TAB 04/04/18 Carvedilol* (Carvedilol*) 25 Mg Tablet, 25 MG PO BID, #60 TAB 04/04/18 Atorvastatin* (Atorvastatin*) 40 Mg Tablet, 40 MG PO QHS, #30 TAB 04/04/18 Levetiracetam* (Levetiracetam*) 1,000 Mg Tablet, 1000 MG PO BID, TAB 04/04/18 Hydralazine Hcl* (Hydralazine Hcl*) 100 Mg Tablet, 100 MG PO BID, #90 TAB 04/04/18 Amlodipine Besylate* (Norvasc*) 5 Mg Tablet, 5 MG PO DAILY, TAB 04/04/18 Allergies Allergies: Coded Allergies: No Known Allergy (Unverified , 04/04/18) PMhx/Soc History of Surgery: No Anesthesia Reaction: No Hx Neurological Disorder: Yes (seizures) Hx Respiratory Disorders: No Hx Cardiac Disorders: Yes (HTN, CHF) Hx Psychiatric Problems: No Hx Miscellaneous Medical Probl: No Hx Alcohol Use: Yes Hx Substance Use: Yes Hx Tobacco Use: Yes Smoking Status: Current every day smoker FmHx Family History: No coronary disease Physical Exam Vitals Vital Signs Date Temp Pulse Resp B/P (MAP) Pulse Ox O2 O2 Flow FiO2 Time Delivery Rate 07/23/18 84 18 189/143 100 Room Air 23:25 (158) 07/23/18 86 20 193/131 100 Room Air 23:00 (151) 07/23/18 77 26 212/149 95 Room Air 21:30 (170) 07/23/18 98.0 87 29 222/144 94 21:19 (170) Physical Exam Const: Well-developed, well-nourished Head: Atraumatic, normocephalic Eyes: Normal Conjunctiva, PERRLA, EOMI, normal sclera, no nystagmus ENT: Normal External Ears, Nose and Mouth, moist mucus membranes. Neck: Full range of motion. No meningismus, no lymphadenopathy. Resp: Clear to auscultation bilaterally, no wheezing, rhonchi, rales, tender chest wall to palpation Cardio: Regular rate and rhythm, no murmurs, S1 S2 present Abd: Soft, non tender x 4, non distended. Normal bowel sounds, no guarding or rebound, no pulsitile abdominal masses or bruits Skin: No petechiae or rashes, no ecchymosis , no maculopapular rash Back: No midline or flank tenderness Ext: No cyanosis, or edema, FROM x 4, normal inspection, neurovascularly intact x 4 Neur: Awake and alert, STR 5/5 x 4, sensation intact x 4, no focal findings, cerebellum intact Psych: Normal Mood and Affect Result Diagram: 07/23/18212707/23/182127 Results 24 hrs Laboratory Tests Test 07/23/18 21:26 07/23/18 21:28 Bedside Glucose 142 mg/dL White Blood Count 4.2 10^3/ul Red Blood Count 4.81 10^6/ul Hemoglobin 11.3 g/dl Hematocrit 35.8 % Mean Corpuscular Volume 74.4 fl Mean Corpuscular Hemoglobin 23.5 pg Mean Corpuscular Hemoglobin Concent 31.6 g/dl Red Cell Distribution Width 18.0 % Platelet Count 176 10^3/UL Mean Platelet Volume 11.7 fl Immature Granulocytes % 0.000 % Neutrophils % % Segmented Neutrophils % (Manual) 42 % Lymphocytes % % Lymphocytes % (Manual) 45 % Monocytes % % Monocytes % (Manual) 12 % Eosinophils % % Basophils % % Basophils % (Manual) 1 % Nucleated Red Blood Cells % 0.0 /100WBC Immature Granulocytes # 0.000 10^3/ul Neutrophils # 10^3/ul Lymphocytes (Manual) 1.8 10^3/ul Lymphocytes # 10^3/ul Monocytes # 10^3/ul Monocytes # (Manual) 0.5 10^3/ul Eosinophils # 10^3/ul Basophils # 10^3/ul Basophils # (Manual) 0.0 10^3/ul Nucleated Red Blood Cells # 10^3/ul Platelet Estimate NORMAL Giant Platelets 4 % Polychromasia 1+ Prothrombin Time 12.1 Sec Prothrombin Time Ratio 0.9 INR International Normalized Ratio 0.89 Activated Partial Thromboplast Time 26.1 Sec Sodium Level 139 mmol/L Potassium Level 3.0 mmol/L Chloride Level 102 mmol/L Carbon Dioxide Level 30 mmol/L Anion Gap 7 Blood Urea Nitrogen 39 mg/dl Creatinine 5.08 mg/dl Est Glomerular Filtrat Rate mL/min 16 mL/min Glucose Level 149 mg/dl Calcium Level 9.0 mg/dl Total Bilirubin 0.3 mg/dl Direct Bilirubin 0.00 mg/dl Indirect Bilirubin 0.3 mg/dl Aspartate Amino Transf (AST/SGOT) 27 IU/L Alanine Aminotransferase (ALT/SGPT) 17 IU/L Alkaline Phosphatase 60 IU/L Troponin I 0.154 ng/ml B-Type Natriuretic Peptide 87110 PG/ML Total Protein 6.8 g/dl Albumin 3.7 g/dl Globulin 3.10 g/dl Albumin/Globulin Ratio 1.19 Current Medications Medications Dose Sig/Jen Start Time Status Last (Trade) Ordered Route PRN Stop Time Admin Dose Reason Admin Morphine 4 mg ONCE STAT 07/23/18 DC 07/23/18 Sulfate IV 21:41 21:54 (morphine) 07/23/18 21:43 Ondansetron 4 mg ONCE STAT 07/23/18 DC 07/23/18 HCl (Zofran IV 21:41 21:56 Inj) 07/23/18 21:43 Nicardipine 30 mg ONCE ONCE 07/23/18 DC 07/23/18 HCl PO 22:00 21:54 (Cardene) 07/23/18 22:01 Hydralazine 10 mg ONCE ONCE 07/23/18 DC 07/23/18 HCl IV 22:00 21:55 (Apresoline) 07/23/18 22:01 Sodium 500 ml @ Q1H STAT 07/23/18 DC 07/23/18 Chloride 500 mls/hr IV 21:43 21:56 07/23/18 22:42 100 ml @ ONCE STAT 07/23/18 DC 07/23/18 Levetiracetam 400 mls/hr IVPB 21:43 21:55 07/23/18 21:57 Enoxaparin 90 mg ONCE ONCE 07/23/18 DC 07/23/18 Sodium SC 22:30 22:33 (Lovenox) 07/23/18 22:31 Aspirin 325 mg ONCE STAT 07/23/18 DC 07/23/18 (Aspirin) PO 22:24 22:32 07/23/18 22:25 1 inch ONCE STAT 07/23/18 DC 07/23/18 Nitroglycerin TD 22:24 22:33 07/23/18 22:25 (Nitroglyceri n 2% Oint) 1 mg ONCE STAT 07/23/18 DC 07/23/18 Hydromorphone IV 23:39 23:46 HCl 07/23/18 23:41 (Dilaudid) Ondansetron 4 mg ONCE STAT 07/23/18 DC 07/23/18 HCl (Zofran IV 23:39 23:46 Inj) 07/23/18 23:41 Ondansetron 4 mg ER BRIDGE 07/24/18 HCl (Zofran PRN IV 00:00 Inj) NAUSEA/VOMITI 07/24/18 23:59 NG 650 mg ER BRIDGE 07/24/18 Acetaminophen PRN PO 00:00 (Tylenol .MILD PAIN 07/24/18 23:59 Tab) 1-3 OR TEMP Amlodipine 5 mg DAILY PO 07/24/18 UNV Besylate 09:00 (Norvasc) 40 mg QHS PO 07/24/18 UNV Atorvastatin 21:00 Calcium (Lipitor) Carvedilol 25 mg BID PO 07/24/18 UNV (Coreg) 09:00 Furosemide 40 mg DAILY PO 07/24/18 UNV (Lasix) 09:00 Hydralazine 100 mg BID PO 07/24/18 UNV HCl 00:30 (Apresoline) 1,000 mg BID PO 07/24/18 UNV Levetiracetam 09:00 (Keppra) Multivit/Ca 1 tab DAILY PO 07/24/18 UNV Carb/ B 09:00 Cmplx/FA/Pren at (Mee-Patt) Potassium 10 meq DAILY PO 07/24/18 UNV Chloride 09:00 (Klor-Con 10) Procedures/MDM EKG: Rate/Rhythm: Normal sinus rhythm heart rate 73, inverted T waves in leads II 3 and F, V5, V6, QRS, ST, QT: NORMAL [place], QRS, QT] Impression: Abnormal EKG Patient's blood pressure is elevated 249/114. Is given Cardene 30 mg p.o. as well as hydralazine 10 mg IV Patient's troponin came back elevated. He received 90 mg of Lovenox, no acute ST elevation suggestive of acute [place] on EKG Patient's BNP is very elevated. Patient is currently pending his chest x-ray and CT head. His renal function is now over 5 as a creatinine level and his baseline is usually at a 3. He will be admitted for renal insufficiency, elevated troponin, this could be from cardiac sweating or from poor clearance hours a bit higher than expected for poor clearance, he does have a extensive cardiac history. He was loaded with IV Keppra. Critical Care Time: 30 minutes Treatments/Evaluations: Close monitoring and treatment of unstable vital signs, cardiorespiratory, and neurologic status, while maintaining tight balance of fluid, respiratory, and cardiac interventions. This time includes discussing the case with the patient and the patient's family. This time does not include all procedures stated elsewhere in this record. This time also includes reviewing old records, labs and radiological studies. This time includes examining and re- examining the patient. Additionally, this time also includes arranging care with admitting and consulting physicians. Patient: DONAVON LEE : 1985 Age: 33 Sex: M MR #: [id number] DOS: 07/23/18 2143 Ordering MD: COLTON BORGES DO Location: E/R Room/Bed: PROCEDURE: CT Brain without contrast. CLINICAL INDICATION: Seizure. TECHNIQUE: A CT of the brain was performed utilizing axial imaging from the skull base through the vertex without IV contrast. Multiplanar reformatted images were made. Images were reviewed on a PACS workstation. The CTDIvol is 39.64 mGy and the DLP is 634.23 mGycm. DICOM images are available. One or more of the following dose reduction techniques were utilized: 1.) Automated exposure control 2.) Adjustment of the mA +/- kV according to patient's size 3.) Use of iterative reconstruction technique. COMPARISON: CT examination the head dated 03/25/2018. MRI examination the head dated 03/25/2018. FINDINGS: The previously seen intraparenchymal hemorrhage at the anterior right frontal lobe measuring up to about 14 mm is resolved over interval. There is a mild region of decreased obando matter and white matter attenuation at the site of the prior hemorrhage. Chronic changes of small vessel disease white matter are again seen, greater than expected for patient age. These are without significant change release manager interval. There is no intracranial hemorrhage, mass effect, or midline shift. No extra- axial fluid collection is seen. The ventricles and sulci are normal in size and configuration. The density of the remaining brain is otherwise normal, and the obando white matter differentiation appears well-preserved. The visualized paranasal sinuses and osseous structures are grossly unremarkable. 10 mm calcified meningioma at the anterior falx. Other small calcified falcine meningioma is are seen. Generally, calcified meningiomas are without significant change release manager interval. IMPRESSION: 1. Interval resolution of right frontal lobe parenchymal hemorrhage. 2. There is a mild region of decreased white matter and obando matter attenuation at the site of the prior hemorrhage, otherwise nonspecific. A follow-up MRI examination of the brain may be of further use. 3. Chronic changes of small vessel disease white matter are again seen, greater than expected for patient age, and without significant change release manager interval. 3. Otherwise, no evident acute process in the head. RPTAT: UU R Gregorio Physician Date Time Electronically viewed and signed by Raquel Perkins, Physician on 07/24/2018 00:11 RS/ CC: COLTON BORGES DO [id number] Departure Diagnosis: Primary Impression: Non-STEMI (non-ST elevated myocardial infarction) Additional Impressions: Seizure Uncontrolled hypertension Chest pain Chest pain type: unspecified Qualified Codes: R07.9 - Chest pain, unspecified Condition: Stable COLTON BORGES DO July 23, 2018 22:16
[2018-07-23] MEDS ORDERED: NITROGLYCERIN 2% 1 GM OINT PKT TD STA (22:24)
[2018-07-23] MEDS ORDERED: ASPIRIN 325 MG TAB PO STA (22:24)
[2018-07-23] MEDS ORDERED: ENOXAPARIN 100 MG/ML SYG SC ONE (22:30)
[2018-07-23] MEDS ORDERED: HYDROmorphONE 1 MG/ML SYG IV STA (23:39)
[2018-07-24] VITALS (12 sets, daily range): BP systolic 106–191; BP diastolic 85–112; PULSE 77–114; RESP 18–19; Ht 175.3 cm; Wt 78.1 kg
[2018-07-24] MEDS ORDERED: POTASSIUM CHLORIDE (SR) 20 MEQ TAB PO STA ×2 (00:25→07:16)
--- NOTE | 2018-07-24 00:28 | HP ---
Date/Time of Note Date/Time of Note DATE: 07/24/18 TIME: 00:27 Assessment/Plan VTE Prophylaxis SCD applied (from Nsg): Yes Pharmacological prophylaxis: NA/contraindicated Pharm contraindication: low risk/ambulating Lines/Catheters IV Catheter Type (from Nrsg): Saline Lock Assessment/Plan Hospital Course This is a 33-year-old male being admitted to the telemetry floor for: #1 non-STEMI: Likley type 2. Patient had elevated troponin of 0.154, will trend. Possibly elevated in the setting of seizures, acute on CKD, HTN urgency, He was given Nitropaste in the ED. He was given a dose of Lovenox therapeutic x1, however I will hold off on any further anticoagulation given that he did have a intraparenchymal hemorrhage in March 2018. If his troponins to continue to rise we will need to see if patient could tolerate further anticoagulation. We will check an echocardiogram, will consult cardiology. #2 witnessed seizure: Secondary likely to previous intraparenchymal hemorrhage. Patient does also have a history of meth use though he denies it at the current time. Will check a urine drug screen. Check an ethanol level. Will continue his Keppra that he was on prior. PRN Ativan. Will consult neurology Dr. robb. CT shows resolution of previous intraparenchymal hemorrhage. #3 acute on chronic kidney disease: Secondary likely to patient noncompliance, uncontrolled hypertension. Will consult nephrology. Avoid nephrotoxic agents. We will do a renal ultrasound. Will check urine microscopic studies. #4 hypertensive urgency: Resume patient's home blood pressure medications, PRN hydralazine. titrate gradually to an acceptable target of less than 130/80 in the setting of CKD. #5 history of illicit drug use: We will check urine drug screen, PRN Ativan for any withdrawal symptoms. Encourage cessation. #6 microcytic anemia: No signs of acute bleeding. Check iron stores #7 DVT GI prophylaxis: SCDs, no GI prophylaxis indicated Further treatment strategy will be implemented as per the clinical course. Result Diagram: 07/23/18212707/23/182127 Results 24hrs Laboratory Tests Test 07/23/18 21:26 07/23/18 21:28 Bedside Glucose 142 White Blood Count 4.2 #L Red Blood Count 4.81 Hemoglobin 11.3 L Hematocrit 35.8 L Mean Corpuscular Volume 74.4 L Mean Corpuscular Hemoglobin 23.5 L Mean Corpuscular Hemoglobin Concent 31.6 L Red Cell Distribution Width 18.0 H Platelet Count 176 # Mean Platelet Volume 11.7 H Immature Granulocytes % 0.000 L Neutrophils % Segmented Neutrophils % (Manual) 42 Lymphocytes % Lymphocytes % (Manual) 45 Monocytes % Monocytes % (Manual) 12 H Eosinophils % Basophils % Basophils % (Manual) 1 Nucleated Red Blood Cells % 0.0 Immature Granulocytes # 0.000 Neutrophils # Lymphocytes (Manual) 1.8 Lymphocytes # Monocytes # Monocytes # (Manual) 0.5 Eosinophils # Basophils # Basophils # (Manual) 0.0 Nucleated Red Blood Cells # Platelet Estimate NORMAL Giant Platelets 4 H Polychromasia 1+ Prothrombin Time 12.1 Prothrombin Time Ratio 0.9 INR International Normalized Ratio 0.89 Activated Partial Thromboplast Time 26.1 Sodium Level 139 Potassium Level 3.0 L Chloride Level 102 Carbon Dioxide Level 30 Anion Gap 7 Blood Urea Nitrogen 39 H Creatinine 5.08 H Est Glomerular Filtrat Rate mL/min 16 L Glucose Level 149 Calcium Level 9.0 Total Bilirubin 0.3 Direct Bilirubin 0.00 Indirect Bilirubin 0.3 Aspartate Amino Transf (AST/SGOT) 27 Alanine Aminotransferase (ALT/SGPT) 17 Alkaline Phosphatase 60 Troponin I 0.154 *H B-Type Natriuretic Peptide 28612 H Total Protein 6.8 Albumin 3.7 Globulin 3.10 Albumin/Globulin Ratio 1.19 HPI/ROS Admit Date/Time Admit Date/Time Hx of Present Illness Chief complaint: Chest pain, seizure This a 33-year-old male with a history of hypertension, CHF, seizure who was laying on the couch with his significant other watching TV. She said they were talking and then he suddenly became quiet and started shaking and foaming at the mouth. She says she was witnessed him have a seizure for about a minute. He was postictal and she called EMS. Apparently when the EMS arrived they checked his blood sugar and it was in the 40s, patient does not have diabetes.. In the emergency department he reported that his chest was hurting. Patient was diagnosed with a intraparenchymal bleed in March 2018 at that time was started on Keppra for seizures. He said that he ran out of his seizure medicine and has not been taking it He says he feels groggy as if he just had a seizure like he has had in the past. He does report recent drug use of marijuana and cigarettes. He does have a history of meth use. Allergies: NKDA Medications: See MAR JYOTSNA Const: As per HPI Eyes : No pain discharge or redness or change in visual acuity ENT: No pain, sore throat, congestion, congestion, dysphagia or discharge Respiratory: No shortness of breath, cough, sputum, wheezing, or pleuritic pain Cardiovascular: As per HPI GI : no change in appetite, abdominal pain, nausea, vomiting, diarrhea, constipation, or change in the color his stool Genitourinary: No dysuria, hematuria, flank pain , discharge or CVA tenderness Musculoskeletal: No joint pain, back pain, neck pain, restricted range of motion in neck or joints Skin: No rash, bruising or hives Neuro: As per HPI Endocrine: No polyuria, polydipsia, temperature intolerance Psych: No hallucination, depression, anxiety or suicidal ideation PMH/Family/Social Past Medical History Intraparenchymal hemorrhage in March 2018, chronic kidney disease, seizure disorder, hypertension, coronary artery disease Medications Current Medications Ondansetron HCl (Zofran Inj) 4 mg ER BRIDGE PRN IV NAUSEA/VOMITING; Start 07/24/18 at 00:00; Stop 07/24/18 at 23:59 Acetaminophen (Tylenol Tab) 650 mg ER BRIDGE PRN PO .MILD PAIN 1-3 OR TEMP; Start 07/24/18 at 00:00; Stop 07/24/18 at 23:59 Amlodipine Besylate (Norvasc) 5 mg DAILY PO ; Start 07/24/18 at 09:00; Status UNV Atorvastatin Calcium (Lipitor) 40 mg QHS PO ; Start 07/24/18 at 21:00; Status UNV Carvedilol (Coreg) 25 mg BID PO ; Start 07/24/18 at 09:00; Status UNV Hydralazine HCl (Apresoline) 100 mg BID PO ; Start 07/24/18 at 00:30; Status UNV Levetiracetam (Keppra) 1,000 mg BID PO ; Start 07/24/18 at 09:00; Status UNV Multivit/Ca Carb/ B Cmplx/FA/Prenat (Mee-Patt) 1 tab DAILY PO ; Start 07/24/18 at 09:00; Status UNV Potassium Chloride (Klor-Con 10) 10 meq DAILY PO ; Start 07/24/18 at 09:00; Status UNV Sodium Chloride 1,000 ml @ 60 mls/hr [id number] IV ; Start 07/24/18 at 00:12; Status UNV IV Flush (NS 3 ml) 3 ml PER PROTOCOL IV ; Start 07/24/18 at 00:30; Status UNV Lorazepam (Ativan) 1 mg Q2H PRN IV SEIZURES; Start 07/24/18 at 00:30; Status UNV Ondansetron HCl (Zofran Inj) 4 mg Q6H PRN IV NAUSEA/VOMITING; Start 07/24/18 at 00:30; Status UNV Nitroglycerin (Nitroglycerin (Sl Tab) 0.4 Mg) 1 tab Q5M PRN SL .CHEST PAIN; Start 07/24/18 at 00:30; Status UNV Acetaminophen (Tylenol Tab) 650 mg Q6H PRN PO .PAIN 1-3 OR TEMP; Start 07/24/18 at 00:30; Status UNV Docusate Sodium (Colace) 100 mg Q12H PRN PO .CONSTIPATION; Start 07/24/18 at 00:30; Status UNV Bisacodyl (Dulcolax) 5 mg DAILY PRN PO .CONSTIPATION; Start 07/24/18 at 00:30; Status UNV Hydralazine HCl (Apresoline) 10 mg Q4H PRN IV ELEVATED BLOOD PRESSURE; Start 07/24/18 at 00:30; Status UNV Potassium Chloride (Klor-Con 20) 40 meq ONCE STAT PO ; Start 07/24/18 at 00:25; Stop 07/24/18 at 00:26; Status UNV Coded Allergies: No Known Allergy (Unverified , 07/24/18) Past Surgical History stents Family History Significant Family History: no pertinent family hx Social History Smoking Status: Current every day smoker Drug Use: marijuana, other (History of meth use) Exam/Review of Systems Vital Signs Vitals Vital Signs Date Temp Pulse Resp B/P (MAP) Pulse Ox O2 O2 Flow FiO2 Time Delivery Rate 07/23/18 84 18 189/143 100 Room Air 23:25 (158) 07/23/18 98.0 21:19 Exam Exam General: Patient is a pleasant male currently lying in bed in no acute distress HEENT: Atraumatic, normocephalic. The pupils are equal, round and reactive. Extraocular motor are intact Neck: Supple with full range of motion. No rigidity or meningismus Chest: Nontender Lungs: Coarse breath sounds bilaterally, nonlabored breathing Heart: Normal S1-S2, Regular rhythm and rate. No murmur, S3, or S4 Abdomen: Soft , nontender, nondistended , bowel sounds are present. No guarding no rebound tenderness , No masses or organomegaly. No costovertebral temporal angle mass Extremities: Normal to inspection, no edema no cyanosis Neurologic: Normal mental status, speech normal, cranial nerves II through XII are intact, motor and sensory are intact, Additional Comments PROCEDURE: CT Brain without contrast. CLINICAL INDICATION: Seizure. TECHNIQUE: A CT of the brain was performed utilizing axial imaging from the skull base through the vertex without IV contrast. Multiplanar reformatted images were made. Images were reviewed on a PACS workstation. The CTDIvol is 39.64 mGy and the DLP is 634.23 mGycm. DICOM images are available. One or more of the following dose reduction techniques were utilized: 1.) Automated exposure control 2.) Adjustment of the mA +/- kV according to patient's size 3.) Use of iterative reconstruction technique. COMPARISON: CT examination the head dated 03/25/2018. MRI examination the head dated 03/25/2018. FINDINGS: The previously seen intraparenchymal hemorrhage at the anterior right frontal lobe measuring up to about 14 mm is resolved over interval. There is a mild region of decreased obando matter and white matter attenuation at the site of the prior hemorrhage. Chronic changes of small vessel disease white matter are again seen, greater than expected for patient age. These are without significant foreign exchange dealer i nterval. There is no intracranial hemorrhage, mass effect, or midline shift. No extra- axial fluid collection is seen. The ventricles and sulci are normal in size and configuration. The density of the remaining brain is otherwise normal, and the obando white matter differentiation appears well-preserved. The visualized paranasal sinuses and osseous structures are grossly unremarkable. 10 mm calcified meningioma at the anterior falx. Other small calcified falcine meningioma is are seen. Generally, calcified meningiomas are without significant foreign exchange dealer interval. IMPRESSION: 1. Interval resolution of right frontal lobe parenchymal hemorrhage. 2. There is a mild region of decreased white matter and obando matter attenuation at the site of the prior hemorrhage, otherwise nonspecific. A follow-up MRI examination of the brain may be of further use. 3. Chronic changes of small vessel disease white matter are again seen, greater than expected for patient age, and without significant foreign exchange dealer interval. 3. Otherwise, no evident acute process in the head. RPTAT: UU Raquel Perkins, Physician Date Time Electronically viewed and signed by Raquel Perkins Physician on 07/24/2018 00:11 RS/ CC: COLTON BORGES DO [id number] PROCEDURE: XR Chest. CLINICAL INDICATION: Chest pain. TECHNIQUE: Single frontal view of the chest. COMPARISON: Plain film chest dated 03/25/2018. FINDINGS: Prominent cardiomegaly is similar in appearance to the prior examination. Stent graft material seen within the thoracic aortic arch and descending aorta, si milar in appearance to the prior examination dated 03/25/2018. The thoracic aorta is tortuous. Mild pulmonary vascular congestion. Mild atelectasis at the retrocardiac left lung base. The lungs otherwise clear. No signs of pleural fluid or pneumothorax are seen. The osseous structures and soft tissues are unremarkable. IMPRESSION: 1. Prominent cardiomegaly is similar in appearance to prior examination. 2. Mild pulmonary vascular congestion is seen. 3. Mild atelectasis at the retrocardiac left lung base. 4. The lungs are otherwise clear. RPTAT: UU Raquel Perkins, Physician Date Time Electronically viewed and signed by Physician Petra on 07/24/2018 00:14 RS/ CC: COLTON BORGES DO [id number] EKG: Rate/Rhythm: Normal sinus rhythm heart rate 73, inverted T waves in leads II 3 and F, V5, V6, QRS, ST, QT: NORMAL [place], QRS, QT] I IVANNA BELTRAN July 24, 2018 00:27
[2018-07-24] MEDS ORDERED: DOCUSATE SODIUM 100 MG CAP PO PRN (00:30)
[2018-07-24] MEDS ORDERED: NACL 0.9% 3 ML SYG IV SCH (00:30)
[2018-07-24] MEDS ORDERED: NITROGLYCERIN (SL) 0.4 MG TAB SL PRN (00:30)
[2018-07-24] MEDS ORDERED: ACETAMINOPHEN 325 MG TAB PO PRN ×2 (00:30)
[2018-07-24] MEDS ORDERED: BISACODYL (EC) 5 MG TAB PO PRN (00:30)
[2018-07-24] MEDS ORDERED: NITROGLYCERIN 2% 1 GM OINT PKT TD ONE (00:30)
[2018-07-24] MEDS ORDERED: LORAZEPAM 2 MG INJ IV PRN (00:30)
[2018-07-24] MEDS ORDERED: hydrALAzine 20 MG INJ IV PRN (00:30)
[2018-07-24] MEDS ORDERED: ONDANSETRON 4 MG INJ IV PRN ×2 (00:30)
[2018-07-24] MEDS ORDERED: hydrALAzine 20 MG INJ IV ONE (01:30)
[2018-07-24] MEDS: SOD CHLORIDE 0.9% 1,000 ML IV SCH ×2 (03:06→16:52)
[2018-07-24] MEDS: morphine 2 MG INJ IV PRN ×2 (05:15→09:29)
[2018-07-24] MEDS ORDERED: FUROSEMIDE 40 MG INJ IV ONE (07:30)
--- NOTE | 2018-07-24 08:31 | CONS ---
DATE OF ADMISSION: 07/23/2018 DATE OF CONSULTATION: 07/24/2018 TYPE OF CONSULTATION: Nephrology. REASON FOR CONSULTATION: Acute kidney injury, chronic kidney disease. REQUESTING PHYSICIAN: Dr. Beltran. HISTORY OF PRESENT ILLNESS: This is a 33-year-old male with a past medical history of chronic kidney disease, history of intraparenchymal hematoma, history of seizure disorder, history of alcohol abuse , who presents to [facility] with chest pain and shortness of breath. The patient states that he was lying on the couch watching TV when he was noted to be foaming and shaking of the mouth. The patient had a witnessed seizure. EMS was called. The patient was brought over and he wa s reported to be hypoglycemic. The patient was brought over to the [facility]. Up on arrival, the patient had a CT scan of the brain and chest x-ray. Chest x-ray showed mild vascular pulmonary congestion, atelectasis and CT scan of brain showed resolution of the frontal lobe parench ymal hemorrhage. The patient was subsequently admitted to telemetry for evaluation. In terms of patient's renal history, the patient states that he has no prior history of chronic kidne y disease. The patient's previous laboratory data in March 2018 does show a creatinine of around 4 mg/dL, EGFR around 15 mL per minute. The patient does admit to a previous history of drug use. He denies any active NSAID use. He denies any hemoptysis, hematemesis, or hematochezia. The patient do es admit to recent diuretic use. The patient denies any prior history of kidney disease. PAST MEDICAL HISTORY: History of chronic kidney disease, history of hypertension, history of intracr anial hemorrhage, history of seizures, history of congestive heart failure. PAST SURGICAL HISTORY: Reviewed. FAMILY HISTORY: No family history of kidney disease. SOCIAL HISTORY: Positive tobacco use, positive drug use. MEDICATIONS: The patient's medications have been reviewed. REVIEW OF SYSTEMS: A 14-point review of systems was conducted. Pertinent positives stated in HPI, o therwise negative. PHYSICAL EXAMINATION: VITAL SIGNS: Blood pressure is 157/93, respirations 18, pulse 88, temperature 98.2. HEENT: Head is normocephalic. NECK: Supple. HEART: Regular rate. LUNGS: Show diminished breath sounds at the base. ABDOMEN: Soft, nontender to palpation without rebound or guarding. EXTREMITIES: Negative for clubbing, cyanosis. Trace edema. DERMATOLOGIC: No rashes. MUSCULOSKELETAL: No joint effusion. NEUROLOGIC: No focal deficits. LABORATORY DATA: Reviewed. IMAGING STUDIES: Reviewed. ASSESSMENT AND PLAN: This is a 33-year-old male who presents with: 1. Renal failure possible nonoliguric acute kidney injury on top of chronic kidney versus progressio n of chronic kidney disease. Etiology of acute kidney injury may be secondary to hemodynamics, diure tic use. Etiology of underlying chronic kidney disease is unclear, questionable hypertensive nephros clerosis, previous acute tubular necrosis from nephrotoxic exposure. Other possibilities including a primary glomerulopathy are considerations. Lower suspicion for acute vasculitis or obstruction at t his time. Plan is to do a full evaluation. We will check UA with microanalysis, check urine electro lytes, quantify patient's proteinuria. We will check a renal ultrasound. We will monitor renal func tion closely. We will consider a renal biopsy. Otherwise, continue supportive care, renally dose al l medications and avoid nephrotoxins, avoid significant hemodynamic fluctuations. No immediate need for renal replacement therapy at this time. 2. Anemia with iron deficiency. We will consider starting the patient on IV Ferrlecit. No need for Epogen at this time. 3. Hypokalemia, replete with potassium chloride. 4. Hypertension in part due to increased intravascular volume. Continue current blood pressure jose david men. Defer any TAB inhibitor or ARBs at this time. 5. Seizure. Etiology may be secondary to hypoglycemia, primary seizure disorder. The patient's CT scan was reviewed. Continue Keppra. Continue to monitor. 6. Non-ST elevation myocardial infarction possibly type 1 versus type 2. Continue medical managemen t. Continue to trend serial troponins. Follow up 2D echo. Follow up with cardiology. 7. History of coronary artery disease. Continue medical management. 8. History of congestive heart failure. Continue current treatment plan. 9. Dyslipidemia. Continue statin therapy. Thank you, Dr. Beltran, for this interesting consult. It will be a pleasure to follow the patient wi th you throughout the hospital course. Dictated By: JALEN FITZPATRICK DO NR/NTS Conf#: [id number] DID#: [id number] CC: KULWINDER LOZANO MD; IVANNA BELTRAN MD;*End*
[2018-07-24] MEDS ORDERED: LEVETIRACETAM 500 MG TAB PO SCH (09:00)
[2018-07-24] MEDS ORDERED: FUROSEMIDE 40 MG TAB PO SCH (09:00)
[2018-07-24] MEDS ORDERED: AMLODIPINE 5 MG TAB PO SCH (09:00)
[2018-07-24] MEDS: MULTIVIT/CA CARB/B CMPLX/FA TAB PO SCH (09:25)
[2018-07-24] MEDS: POTASSIUM CHLORIDE (SR) 10 MEQ TAB PO SCH (09:26)
--- NOTE | 2018-07-24 12:25 | PN ---
Date/Time of Note Date/Time of Note DATE: 07/24/18 TIME: 12:05 Assessment/Plan VTE Prophylaxis Risk score (from Nsg)>0 risk: 0 SCD applied (from Nsg): Yes Pharmacological prophylaxis: heparin Lines/Catheters IV Catheter Type (from Nrsg): Peripheral IV Urinary Cath still in place: No Assessment/Plan Hospital Course EXAM Resting comfortably, no distress AOx3, pleasant CN II-XII in tact JVD mild Clear lungs RRR Abdomen soft nt Ext without edema A/P: 33 yo male with h/o CKD, hypertension, ICH leading to seizure presents with witnessed seizure in setting of hypertensive crisis Severe hypertension: - Continue amlodipine 5, carvedilol 25, hydralazine 100. Will gradually titrate to normotension Seizure: - Management per neurology - Continue keppra for now, I will change to renally dosed CKD V: - Likley 2/2 hypertension. GFR not much different than prior. Requires BP control. Likely ESRD in near future but no acute need for HD - Trial of gentle fluids - Renal US noted - Management per renal Anemia of CKD: - Iron per renal NSTEMI: - I suspect this is type II [place] in setting of advanced CKD, seizure and severe hypertension H/o ICH Result Diagram: 07/23/18212707/23/182127 Results 24hrs Laboratory Tests Test 07/23/18 21:26 07/23/18 21:28 07/24/18 01:17 07/24/18 05:57 Bedside Glucose 142 White Blood Count 4.2 #L Red Blood Count 4.81 Hemoglobin 11.3 L Hematocrit 35.8 L Mean Corpuscular 74.4 L Volume Mean Corpuscular 23.5 L Hemoglobin Mean Corpuscular 31.6 L Hemoglobin Concent Red Cell 18.0 H Distribution Width Platelet Count 176 # Mean Platelet Volume 11.7 H Immature 0.000 L Granulocytes % Neutrophils % Segmented 42 Neutrophils % (Manual) Lymphocytes % Lymphocytes % 45 (Manual) Monocytes % Monocytes % (Manual) 12 H Eosinophils % Basophils % Basophils % (Manual) 1 Nucleated Red Blood 0.0 Cells % Immature 0.000 Granulocytes # Neutrophils # Lymphocytes (Manual) 1.8 Lymphocytes # Monocytes # Monocytes # (Manual) 0.5 Eosinophils # Basophils # Basophils # (Manual) 0.0 Nucleated Red Blood Cells # Platelet Estimate NORMAL Giant Platelets 4 H Polychromasia 1+ Prothrombin Time 12.1 Prothrombin Time 0.9 Ratio INR International 0.89 Normalized Ratio Activated 26.1 Partial Thromboplast Time Sodium Level 139 Potassium Level 3.0 L Chloride Level 102 Carbon Dioxide Level 30 Anion Gap 7 Blood Urea Nitrogen 39 H Creatinine 5.08 H Est Glomerular 16 L Filtrat Rate mL/min Glucose Level 149 Calcium Level 9.0 Total Bilirubin 0.3 Direct Bilirubin 0.00 Indirect Bilirubin 0.3 Aspartate Amino 27 Transf (AST/SGOT) Alanine 17 Aminotransferase (AL T/SGPT) Alkaline Phosphatase 60 Troponin I 0.154 *H 0.159 *H 0.166 *H B-Type Natriuretic 55284 H Peptide Total Protein 6.8 Albumin 3.7 Globulin 3.10 Albumin/Globulin 1.19 Ratio Creatine Kinase 374 H 340 H Creatine Kinase 0.4 0.4 Index Creatinine Kinase MB 1.36 1.52 (Mass) Ethyl Alcohol Level < 10.0 H Iron Level 27 L Total Iron Binding 232 L Capacity Percent Iron 12 L Saturation Ferritin 21.2 Valproic Acid < 10 L (Depakene) Level Test 07/24/18 06:00 07/24/18 10:06 07/24/18 10:43 Urine Microscopic 3 1 RBC Urine Microscopic 1 3 WBC Urine Random 46.48 Creatinine Urine Random Sodium 110 H Urine 3.98 Protein/Creatinine Ratio Urine Total Protein 185.0 H 2+ H Urine Opiates Screen Positive Urine Barbiturates Negative Urine Amphetamines Negative Screen Urine Negative Benzodiazepines Screen Urine Cocaine Screen Negative Urine Cannabinoids Positive Creatine Kinase 355 H Creatine Kinase 0.5 Index Creatinine Kinase MB 1.84 (Mass) Troponin I 0.167 *H Urine Color COLORLESS Urine Clarity CLEAR Urine pH 6.0 Urine Specific 1.009 [place] Urine Ketones NEGATIVE Urine Nitrite NEGATIVE Urine Bilirubin NEGATIVE Urine Urobilinogen NEGATIVE Urine Leukocyte NEGATIVE Esterase Urine Hemoglobin NEGATIVE Urine Glucose NEGATIVE Subjective 24 Hr Interval Summary Free Text/Dictation Still complaining of some headache Otherwise doing well no SOB or CP Says he has not been taking any medications for some time Exam/Review of Systems Exam Vitals Vital Signs Date Temp Pulse Resp B/P (MAP) Pulse Ox O2 O2 Flow FiO2 Time Delivery Rate 07/24/18 98.4 77 19 160/107 96 11:26 (124) 07/24/18 Room Air 03:15 Intake and Output 07/23/18 07/23/18 07/24/18 1515:00 23:00 07:00 IntakeIntake Total 200 ml OutputOutput Total 600 ml BalanceBalance -400 ml Results Results 24hrs Laboratory Tests Test 07/23/18 21:26 07/23/18 21:28 07/24/18 01:17 07/24/18 05:57 Bedside Glucose 142 White Blood Count 4.2 #L Red Blood Count 4.81 Hemoglobin 11.3 L Hematocrit 35.8 L Mean Corpuscular 74.4 L Volume Mean Corpuscular 23.5 L Hemoglobin Mean Corpuscular 31.6 L Hemoglobin Concent Red Cell 18.0 H Distribution Width Platelet Count 176 # Mean Platelet Volume 11.7 H Immature 0.000 L Granulocytes % Neutrophils % Segmented 42 Neutrophils % (Manual) Lymphocytes % Lymphocytes % 45 (Manual) Monocytes % Monocytes % (Manual) 12 H Eosinophils % Basophils % Basophils % (Manual) 1 Nucleated Red Blood 0.0 Cells % Immature 0.000 Granulocytes # Neutrophils # Lymphocytes (Manual) 1.8 Lymphocytes # Monocytes # Monocytes # (Manual) 0.5 Eosinophils # Basophils # Basophils # (Manual) 0.0 Nucleated Red Blood Cells # Platelet Estimate NORMAL Giant Platelets 4 H Polychromasia 1+ Prothrombin Time 12.1 Prothrombin Time 0.9 Ratio INR International 0.89 Normalized Ratio Activated 26.1 Partial Thromboplast Time Sodium Level 139 Potassium Level 3.0 L Chloride Level 102 Carbon Dioxide Level 30 Anion Gap 7 Blood Urea Nitrogen 39 H Creatinine 5.08 H Est Glomerular 16 L Filtrat Rate mL/min Glucose Level 149 Calcium Level 9.0 Total Bilirubin 0.3 Direct Bilirubin 0.00 Indirect Bilirubin 0.3 Aspartate Amino 27 Transf (AST/SGOT) Alanine 17 Aminotransferase (AL T/SGPT) Alkaline Phosphatase 60 Troponin I 0.154 *H 0.159 *H 0.166 *H B-Type Natriuretic 19176 H Peptide Total Protein 6.8 Albumin 3.7 Globulin 3.10 Albumin/Globulin 1.19 Ratio Creatine Kinase 374 H 340 H Creatine Kinase 0.4 0.4 Index Creatinine Kinase MB 1.36 1.52 (Mass) Ethyl Alcohol Level < 10.0 H Iron Level 27 L Total Iron Binding 232 L Capacity Percent Iron 12 L Saturation Ferritin 21.2 Valproic Acid < 10 L (Depakene) Level Test 07/24/18 06:00 07/24/18 10:06 07/24/18 10:43 Urine Microscopic 3 1 RBC Urine Microscopic 1 3 WBC Urine Random 46.48 Creatinine Urine Random Sodium 110 H Urine 3.98 Protein/Creatinine Ratio Urine Total Protein 185.0 H 2+ H Urine Opiates Screen Positive Urine Barbiturates Negative Urine Amphetamines Negative Screen Urine Negative Benzodiazepines Screen Urine Cocaine Screen Negative Urine Cannabinoids Positive Creatine Kinase 355 H Creatine Kinase 0.5 Index Creatinine Kinase MB 1.84 (Mass) Troponin I 0.167 *H Urine Color COLORLESS Urine Clarity CLEAR Urine pH 6.0 Urine Specific 1.009 [place] Urine Ketones NEGATIVE Urine Nitrite NEGATIVE Urine Bilirubin NEGATIVE Urine Urobilinogen NEGATIVE Urine Leukocyte NEGATIVE Esterase Urine Hemoglobin NEGATIVE Urine Glucose NEGATIVE Medications Medication Current Medications Ondansetron HCl (Zofran Inj) 4 mg ER BRIDGE PRN IV NAUSEA/VOMITING; Start 07/24/18 at 00:00; Stop 07/24/18 at 23:59 Acetaminophen (Tylenol Tab) 650 mg ER BRIDGE PRN PO .MILD PAIN 1-3 OR TEMP; Start 07/24/18 at 00:00; Stop 07/24/18 at 23:59 Amlodipine Besylate (Norvasc) 5 mg DAILY PO Last administered on 07/24/18 09:25; Admin Dose 5 MG; Start 07/24/18 at 09:00 Atorvastatin Calcium (Lipitor) 40 mg QHS PO ; Start 07/24/18 at 21:00 Carvedilol (Coreg) 25 mg BID PO Last administered on 07/24/18 09:27; Admin Dose 25 MG; Start 07/24/18 at 09:00 Hydralazine HCl (Apresoline) 100 mg BID PO Last administered on 07/24/18 09:26; Admin Dose 100 MG; Start 07/24/18 at 00:30 Levetiracetam (Keppra) 1,000 mg BID PO Last administered on 07/24/18 09:25; Admin Dose 1,000 MG; Start 07/24/18 at 09:00 Multivit/Ca Carb/ B Cmplx/FA/Prenat (Mee-Patt) 1 tab DAILY PO Last administered on 07/24/18 09:25; Admin Dose 1 TAB; Start 07/24/18 at 09:00 Potassium Chloride (Klor-Con 10) 10 meq DAILY PO Last administered on 07/24/18 09:26; Admin Dose 10 MEQ; Start 07/24/18 at 09:00 Sodium Chloride 1,000 ml @ 60 mls/hr [id number] IV Last administered on 07/24/18at 03:06; Admin Dose 60 MLS/HR; Start 07/24/18 at 00:12 IV Flush (NS 3 ml) 3 ml PER PROTOCOL IV ; Start 07/24/18 at 00:30 Lorazepam (Ativan) 1 mg Q2H PRN IV SEIZURES; Start 07/24/18 at 00:30 Ondansetron HCl (Zofran Inj) 4 mg Q6H PRN IV NAUSEA/VOMITING; Start 07/24/18 at 00:30 Nitroglycerin (Nitroglycerin (Sl Tab) 0.4 Mg) 1 tab Q5M PRN SL .CHEST PAIN; Start 07/24/18 at 00:30 Acetaminophen (Tylenol Tab) 650 mg Q6H PRN PO .PAIN 1-3 OR TEMP; Start 07/24/18 at 00:30 Docusate Sodium (Colace) 100 mg Q12H PRN PO .CONSTIPATION; Start 07/24/18 at 00:30 Bisacodyl (Dulcolax) 5 mg DAILY PRN PO .CONSTIPATION; Start 07/24/18 at 00:30 Hydralazine HCl (Apresoline) 10 mg Q4H PRN IV ELEVATED BLOOD PRESSURE Last administered on 07/24/18at 01:10; Admin Dose 10 MG; Start 07/24/18 at 00:30 Morphine Sulfate (morphine) 2 mg Q4H PRN IV SEVERE PAIN LEVEL 7-10 Last administered on 07/24/18at 09:29; Admin Dose 2 MG; Start 07/24/18 at 05:30 Acetaminophen/ Hydrocodone Bitart ([place] (5/325)) 1 tab Q4H PRN PO MODERATE PAIN LEVEL 4-6; Start 07/24/18 at 12:00 BRIANA BRADFORD MD July 24, 2018 12:25
[2018-07-24] MEDS: HYDROCODONE/APAP (5/325) TAB PO PRN ×3 (14:40→23:11)
--- NOTE | 2018-07-24 14:56 | RADRPT ---
Echocardiogram Report Patient Name: DONAVON LEEPatient ID: [id number] : 1985 (33y 3m)Study Date: 07/24/2018 9:25:22 AM Gender: MAccession #: [id number] Tech: LE Location: [facility] Ref.Physician: IVANNA BELTRAN Height(Cm): BSA: Weight(Kg): Quality: GoodOrder Physician: IVANNA BELTRAN Account #: Procedures: Echocardiographic Report: Transthoracic echocardiogram with complete 2D, M-Mode, and doppler examination. Indications: NSTEMI. Measurements: 2D/M Mode Doppler Measurement Value Normal Range Measurement Value Normal Range LVIDd 2D 6.0 [ 4.2 - 5.8 ] cm AV Mean Tarun 1.3 [ 70.0 - 90.0 ] cm/sec LVIDs 2D 5.3 [ 2.5 - 4.0 ] cm AV Mean PG 7.0 [ 2.0 - 4.0 ] mmHg LVPWd 2D 1.8 [ 0.6 - 1.0 ] cm AV Peak Tar[place] 1.7 [ 100.0 - 170.0 ] cm/sec IVSd 2D 1.8 [ 0.6 - 1.0 ] cm AV Peak PG 12.0 [ 2.0 - 9.0 ] mmHg EF 2D 23.8 [ 52.0 - 72.0 ] percent AV VTI 30.5 cm LVOT Diam 2.1 [ 2.3 - 2.9 ] cm AI Peak PG 76.0 mmHg AI Peak Tarun 4.4 cm/sec AI PHT 336.0 msec LVOT Peak [place] 1.1 [ 70.0 - 110.0 ] cm/sec LVOT Peak PG 5.0 [ 2.0 - 6.0 ] mmHg MV E Peak [place] 1.0 [ 60.0 - 130.0 ] cm/sec MV A Peak [place] 0.9 [ 100.0 - 120.0 ] cm/sec MV E/A 1.2 [ 0.8 - 1.5 ] ratio MV Decel Time 197 [ 104 - 258 ] msec Lat E` Tarun 0.1 [ 10.0 - 15.0 ] cm/sec Lateral E/E` 13.5 [ 1.0 - 2.0 ] ratio Med E` Tar[place] 0.1 cm/sec MV E/A 1.2 [ 0.8 - 1.5 ] ratio TR Peak [place] 3.0 [ 100.0 - 280.0 ] cm/sec TR Peak PG 37.0 mmHg PV Peak Tar[place] 0.7 [ 40.0 - 80.0 ] cm/sec PV Peak PG 2.0 mmHg Findings: Left Ventricle: Severe concentric left ventricular hypertrophy. Mild enlargement of left ventricle cavity. Mild global left ventricular systolic dysfunction. Ejection fraction is visually estimated at 45 %. Tissue Doppler/Mitral Doppler indices are consistent with pseudonormalization with mildly elevated left atrial pressure (Stage II diastolic dysfunction). Right Ventricle: Normal right ventricular size. Normal right ventricular systolic function. Borderline right ventricular hypertrophy. Left Atrium: There is severe enlargement of left atrium. Right Atrium: There is severe enlargement of right atrium. Atrial Septum: Normal atrial septum. Mitral Valve: Normal appearance of the mitral valve. Mild mitral valve regurgitation. Aortic Valve: Normal appearance of the aortic valve. Mild to moderate aortic valve regurgitation. Tricuspid Valve: Normal appearance of the tricuspid valve. Estimated peak PA systolic pressure 40 mmHg. There is mild tricuspid regurgitation. Pulmonic Valve: Normal pulmonic valve appearance. There is trace pulmonic regurgitation. Pericardium: Normal pericardium with no significant pericardial effusion. Aorta: Normal aortic root. IVC: Normal size and normal respiratory collapse consistent with normal right atrial pressure. Conclusions: Severe concentric left ventricular hypertrophy. Mild enlargement of left ventricle cavity. Mild global left ventricular systolic dysfunction. Ejection fraction is visually estimated at 45 %. Tissue Doppler/Mitral Doppler indices are consistent with pseudonormalization with mildly elevated left atrial pressure (Stage II diastolic dysfunction). Mild to moderate aortic valve regurgitation. There is severe enlargement of left atrium.There is severe enlargement of right atrium. Estimated peak PA systolic pressure 40 mmHg. Normal size and normal respiratory collapse consistent with normal right atrial pressure. Electronically Signed By: Rinku Angulo 2018-07-24 14:55:25 PDT
--- NOTE | 2018-07-24 16:03 | CONS ---
Assessment/Plan Assessment/Plan Hospital Course 33 yo M with multiple comorbidities who presents for evaluation of seizures. He reports medication noncompliance... the likely underlying etiology. CTH is notable for resolution of prior R frontal hemorrhage, but is otherwise without acute intracranial pathology. UA neg; CXR unrevealing UDS + opiates, thc P: Increase Keppra to 500mg BID Ativan IV PRN prolonged seizure or for cluster Add Mg, phos Cont other medical management per primary Will follow clinically Consultation Date/Type/Reason Admit Date/Time Type of Consult Neurology Reason for Consultation seizures Requesting Provider: BRIANA BRADFORD MD Date/Time of Note DATE: 07/24/18 TIME: 16:03 Hx of Present Illness 33 yo M with hx of HTN, CHF, seizures who presented to the ED following a witne ssed seizure.. History was obtained from pt and chart review. He confirms his hx of seizures. Endorses noncompliance x1 month as he was "unable to get them." States he does not follow up with a PCP. He currently endorses feeling tired but denies confusion, weakness or other focal sx. It is additionally elsewhere noted: Hx of Present Illness Chief complaint: Chest pain, seizure This a 33-year-old male with a history of hypertension, CHF, seizure who was laying on the couch with his significant other watching TV. She said they were talking and then he suddenly became quiet and started shaking and foaming at the mouth. She says she was witnessed him have a seizure for about a minute. He was postictal and she called EMS. Apparently when the EMS arrived they checked his blood sugar and it was in the 40s, patient does not have diabetes.. In the emergency department he reported that his chest was hurting. Patient was diagnosed with a intraparenchymal bleed in March 2018 at that time was started on Keppra for seizures. He said that he ran out of his seizure medicine and has not been taking it He says he feels groggy as if he just had a seizure like he has had in the past. He does report recent drug use of marijuana and cigarettes. He does have a history of meth use. negative unless noted otherwise in HPI Exam/Review of Systems Exam Vitals Vital Signs Date Temp Pulse Resp B/P (MAP) Pulse Ox O2 O2 Flow FiO2 Time Delivery Rate 07/24/18 98.4 88 19 140/85 97 15:14 (103) 07/24/18 Room Air 03:15 Intake and Output 07/23/18 07/23/18 07/24/18 1515:00 23:00 07:00 IntakeIntake Total 200 ml OutputOutput Total 600 ml BalanceBalance -400 ml Exam PE: Gen Appearance: No Apparent Distress HEENT: Normocephalic Cardiovascular: Regular rate Lungs: Clear bilaterally Abdomen: Soft Extremities: Dry NE: The patient was alert and oriented. Language was normal. Fund of knowledge was normal. Pupils were equal and reactive to light. There was no afferent pupillary defect. Visual rosas were normal. Funduscopic examination was limited. Extra-ocular movements were full. Ptosis was absent. There was no nystagmus. Facial sensation was normal. Face was symmetric with normal strength. Hearing was intact. Palate movements were normal. Neck strength was normal. There was normal tongue bulk and speed of movement. Tone was normal. Muscle bulk was normal. I did not see fasciculations. Arms and legs were strong. Vibration sensation was normal. Temperature and pinprick sensation was normal. Rapid alternating movements were normal. There was no dysmetria. There was no intention tremor. Gait was deferred due to bedrest. Arm and leg reflexes were 2+ and symmetric. Otto's sign was absent. Plantar responses were flexor. Results Result Diagram: 07/23/18212707/24/18 0557 Results 24hrs Laboratory Tests Test 07/23/18 21:26 07/23/18 21:28 07/24/18 01:17 07/24/18 05:57 Bedside Glucose 142 White Blood Count 4.2 #L Red Blood Count 4.81 Hemoglobin 11.3 L Hematocrit 35.8 L Mean Corpuscular 74.4 L Volume Mean Corpuscular 23.5 L Hemoglobin Mean Corpuscular 31.6 L Hemoglobin Concent Red Cell 18.0 H Distribution Width Platelet Count 176 # Mean Platelet Volume 11.7 H Immature 0.000 L Granulocytes % Neutrophils % Segmented 42 Neutrophils % (Manual) Lymphocytes % Lymphocytes % 45 (Manual) Monocytes % Monocytes % (Manual) 12 H Eosinophils % Basophils % Basophils % (Manual) 1 Nucleated Red Blood 0.0 Cells % Immature 0.000 Granulocytes # Neutrophils # Lymphocytes (Manual) 1.8 Lymphocytes # Monocytes # Monocytes # (Manual) 0.5 Eosinophils # Basophils # Basophils # (Manual) 0.0 Nucleated Red Blood Cells # Platelet Estimate NORMAL Giant Platelets 4 H Polychromasia 1+ Prothrombin Time 12.1 Prothrombin Time 0.9 Ratio INR International 0.89 Normalized Ratio Activated 26.1 Partial Thromboplast Time Sodium Level 139 139 Potassium Level 3.0 L 3.1 L Chloride Level 102 105 Carbon Dioxide Level 30 27 Anion Gap 7 7 Blood Urea Nitrogen 39 H 36 H Creatinine 5.08 H 4.57 H Est Glomerular 16 L 18 L Filtrat Rate mL/min Glucose Level 149 98 # Calcium Level 9.0 9.1 Total Bilirubin 0.3 Direct Bilirubin 0.00 Indirect Bilirubin 0.3 Aspartate Amino 27 Transf (AST/SGOT) Alanine 17 Aminotransferase (AL T/SGPT) Alkaline Phosphatase 60 Troponin I 0.154 *H 0.159 *H 0.166 *H B-Type Natriuretic 32621 H Peptide Total Protein 6.8 Albumin 3.7 Globulin 3.10 Albumin/Globulin 1.19 Ratio Creatine Kinase 374 H 340 H Creatine Kinase 0.4 0.4 Index Creatinine Kinase MB 1.36 1.52 (Mass) Ethyl Alcohol Level < 10.0 H Iron Level 27 L Total Iron Binding 232 L Capacity Percent Iron 12 L Saturation Ferritin 21.2 Valproic Acid < 10 L (Depakene) Level Test 07/24/18 06:00 07/24/18 10:06 07/24/18 10:43 Urine Microscopic 3 1 RBC Urine Microscopic 1 3 WBC Urine Random 46.48 Creatinine Urine Random Sodium 110 H Urine 3.98 Protein/Creatinine Ratio Urine Total Protein 185.0 H 2+ H Urine Opiates Screen Positive Urine Barbiturates Negative Urine Amphetamines Negative Screen Urine Negative Benzodiazepines Screen Urine Cocaine Screen Negative Urine Cannabinoids Positive Creatine Kinase 355 H Creatine Kinase 0.5 Index Creatinine Kinase MB 1.84 (Mass) Troponin I 0.167 *H Urine Color COLORLESS Urine Clarity CLEAR Urine pH 6.0 Urine Specific 1.009 [place] Urine Ketones NEGATIVE Urine Nitrite NEGATIVE Urine Bilirubin NEGATIVE Urine Urobilinogen NEGATIVE Urine Leukocyte NEGATIVE Esterase Urine Hemoglobin NEGATIVE Urine Glucose NEGATIVE Medications Medication Current Medications Amlodipine Besylate (Norvasc) 5 mg DAILY PO Last administered on 07/24/18at 09:25; Admin Dose 5 MG; Start 07/24/18 at 09:00 Atorvastatin Calcium (Lipitor) 40 mg QHS PO ; Start 07/24/18 at 21:00 Carvedilol (Coreg) 25 mg BID PO Last administered on 07/24/18 09:27; Admin Dose 25 MG; Start 07/24/18 at 09:00 Hydralazine HCl (Apresoline) 100 mg BID PO Last administered on 07/24/18 09:26; Admin Dose 100 MG; Start 07/24/18 at 00:30 Multivit/Ca Carb/ B Cmplx/FA/Prenat (Mee-Patt) 1 tab DAILY PO Last administered on 07/24/18 09:25; Admin Dose 1 TAB; Start 07/24/18 at 09:00 Potassium Chloride (Klor-Con 10) 10 meq DAILY PO Last administered on 07/24/18 09:26; Admin Dose 10 MEQ; Start 07/24/18 at 09:00 Sodium Chloride 1,000 ml @ 60 mls/hr [id number] IV Last administered on 07/24/18 03:06; Admin Dose 60 MLS/HR; Start 07/24/18 at 00:12 IV Flush (NS 3 ml) 3 ml PER PROTOCOL IV ; Start 07/24/18 at 00:30 Lorazepam (Ativan) 1 mg Q2H PRN IV SEIZURES; Start 07/24/18 at 00:30 Ondansetron HCl (Zofran Inj) 4 mg Q6H PRN IV NAUSEA/VOMITING; Start 07/24/18 at 00:30 Nitroglycerin (Nitroglycerin (Sl Tab) 0.4 Mg) 1 tab Q5M PRN SL .CHEST PAIN; Start 07/24/18 at 00:30 Acetaminophen (Tylenol Tab) 650 mg Q6H PRN PO .PAIN 1-3 OR TEMP; Start 07/24/18 at 00:30 Docusate Sodium (Colace) 100 mg Q12H PRN PO .CONSTIPATION; Start 07/24/18 at 00 :30 Bisacodyl (Dulcolax) 5 mg DAILY PRN PO .CONSTIPATION; Start 07/24/18 at 00:30 Hydralazine HCl (Apresoline) 10 mg Q4H PRN IV ELEVATED BLOOD PRESSURE Last administered on 07/24/18at 01:10; Admin Dose 10 MG; Start 07/24/18 at 00:30 Morphine Sulfate (morphine) 2 mg Q4H PRN IV SEVERE PAIN LEVEL 7-10 Last administered on 07/24/18at 09:29; Admin Dose 2 MG; Start 07/24/18 at 05:30 Acetaminophen/ Hydrocodone Bitart (Johnson (5/325)) 1 tab Q4H PRN PO MODERATE PAIN LEVEL 4-6 Last administered on 07/24/18at 14:40; Admin Dose 1 TAB; Start 07/24/18 at 12:00 Levetiracetam (Keppra) 250 mg BID PO ; Start 07/24/18 at 21:00 Past Medical History reviewed Home Meds Active Scripts Multivit/Ca Carb/B Cmplx/Fa* (Mee-Patt*) 1 Tab Tab, 1 TAB PO DAILY for 30 Days, TAB Prov:DONAVON FAIRBANKS MD 04/04/18 Potassium Chloride* (K-Dur*) 10 Meq Tab.prt.sr, 10 MEQ PO DAILY, #20 TAB Prov:DONAVON FAIRBANKS MD 04/04/18 Reported Medications Furosemide* (Furosemide*) 40 Mg Tablet, 40 MG PO DAILY, TAB 04/04/18 Carvedilol* (Carvedilol*) 25 Mg Tablet, 25 MG PO BID, #60 TAB 04/04/18 Atorvastatin* (Atorvastatin*) 40 Mg Tablet, 40 MG PO QHS, #30 TAB 04/04/18 Levetiracetam* (Levetiracetam*) 1,000 Mg Tablet, 1000 MG PO BID, TAB 04/04/18 Hydralazine Hcl* (Hydralazine Hcl*) 100 Mg Tablet, 100 MG PO BID, #90 TAB 04/04/18 Amlodipine Besylate* (Norvasc*) 5 Mg Tablet, 5 MG PO DAILY, TAB 04/04/18 Discontinued Reported Medications Aspirin* (Aspirin* EC) 81 Mg Tablet.dr, 81 MG PO DAILY, TAB 04/04/18 Medications Current Medications Amlodipine Besylate (Norvasc) 5 mg DAILY PO Last administered on 07/24/18at 09:25; Admin Dose 5 MG; Start 07/24/18 at 09:00 Atorvastatin Calcium (Lipitor) 40 mg QHS PO ; Start 07/24/18 at 21:00 Carvedilol (Coreg) 25 mg BID PO Last administered on 07/24/18at 09:27; Admin Dose 25 MG; Start 07/24/18 at 09:00 Hydralazine HCl (Apresoline) 100 mg BID PO Last administered on 07/24/18 09:26; Admin Dose 100 MG; Start 07/24/18 at 00:30 Multivit/Ca Carb/ B Cmplx/FA/Prenat (Mee-Patt) 1 tab DAILY PO Last administered on 07/24/18 09:25; Admin Dose 1 TAB; Start 07/24/18 at 09:00 Potassium Chloride (Klor-Con 10) 10 meq DAILY PO Last administered on 07/24/18 09:26; Admin Dose 10 MEQ; Start 07/24/18 at 09:00 Sodium Chloride 1,000 ml @ 60 mls/hr [id number] IV Last administered on 07/24/18 03:06; Admin Dose 60 MLS/HR; Start 07/24/18 at 00:12 IV Flush (NS 3 ml) 3 ml PER PROTOCOL IV ; Start 07/24/18 at 00:30 Lorazepam (Ativan) 1 mg Q2H PRN IV SEIZURES; Start 07/24/18 at 00:30 Ondansetron HCl (Zofran Inj) 4 mg Q6H PRN IV NAUSEA/VOMITING; Start 07/24/18 at 00:30 Nitroglycerin (Nitroglycerin (Sl Tab) 0.4 Mg) 1 tab Q5M PRN SL .CHEST PAIN; Start 07/24/18 at 00:30 Acetaminophen (Tylenol Tab) 650 mg Q6H PRN PO .PAIN 1-3 OR TEMP; Start 07/24/18 at 00:30 Docusate Sodium (Colace) 100 mg Q12H PRN PO .CONSTIPATION; Start 07/24/18 at 00:30 Bisacodyl (Dulcolax) 5 mg DAILY PRN PO .CONSTIPATION; Start 07/24/18 at 00:30 Hydralazine HCl (Apresoline) 10 mg Q4H PRN IV ELEVATED BLOOD PRESSURE Last administered on 07/24/18at 01:10; Admin Dose 10 MG; Start 07/24/18 at 00:30 Morphine Sulfate (morphine) 2 mg Q4H PRN IV SEVERE PAIN LEVEL 7-10 Last admi nistered on 07/24/18 09:29; Admin Dose 2 MG; Start 07/24/18 at 05:30 Acetaminophen/ Hydrocodone Bitart (Johnson (5)) 1 tab Q4H PRN PO MODERATE PAIN LEVEL 4-6 Last administered on 07/24/18at 14:40; Admin Dose 1 TAB; Start 07/24/18 at 12:00 Levetiracetam (Keppra) 250 mg BID PO ; Start 07/24/18 at 21:00 Allergies: Coded Allergies: No Known Allergy (Unverified , 07/24/18) Past Surgical History reviewed Social History reviewed Smoking Status: Current every day smoker Drug Use: marijuana, other (History of meth use) SHALA CALLEJAS NP July 24, 2018 16:03 RADHA PETERS July 25, 2018 15:19
--- NOTE | 2018-07-24 17:39 | CONS ---
Assessment/Plan Assessment/Plan Hospital Course (Demo Recall) NSTEMI: likely type II in setting of seizure and hypertensive crisis. Doubt CAD and trop trend of 0.16 x 4 is not consistent with ACS. With his recent ICH and low suspicion for CAD, I would not pursue further as he cannot tolerate anticoagulation or antiplatelets Hypertensive crisis: BP 220/140s on admission. 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 Has severe LVH likely from uncontrolled HTN but amyloid also in the differential especially with spontaneous ICH ICH 03/2018: resolved on recent imaging -no ASA or anticoagulation -change to amlodipine 5mg BID -coreg 25mg BID -hydralazine 100mg TID -neuro f/u Consultation Date/Type/Reason Admit Date/Time Date of Consultation: July 24, 2018 Type of Consult Cardiology Reason for Consultation NSTEMI Requesting Provider: IVANNA BELTRAN Date/Time of Note DATE: 07/24/18 TIME: 17:29 Hx of Present Illness 33 yo M with a h/o TEVAR, HTN, recent ICH 03/2018, seizures, who presented after a witnessed seizure episode. He was found to have hypoglycemia by paramedics and also had complained of chest pain. His BP was 222/144. His trops have been around 0.16 x 4. BP better controlled and no chest pain. In terms of his TEVAR, he is not able to explain it well but from what I can tell, he may have had an aortic dissection as he states that he was flown out to a hospital in [place] ([facility]) where he had the procedure urgently. Unclear why he did not have open repair. He had run out of his meds recently. per hPI Past Medical History per HPI Home Meds Active Scripts Multivit/Ca Carb/B Cmplx/Fa* (Mee-Patt*) 1 Tab Tab, 1 TAB PO DAILY for 30 Days, TAB Prov:DONAVON FAIRBANKS MD 04/04/18 Potassium Chloride* (K-Dur*) 10 Meq Tab.prt.sr, 10 MEQ PO DAILY, #20 TAB Prov:DONAVON FAIRBANKS MD 04/04/18 Reported Medications Furosemide* (Furosemide*) 40 Mg Tablet, 40 MG PO DAILY, TAB 04/04/18 Carvedilol* (Carvedilol*) 25 Mg Tablet, 25 MG PO BID, #60 TAB 04/04/18 Atorvastatin* (Atorvastatin*) 40 Mg Tablet, 40 MG PO QHS, #30 TAB 04/04/18 Levetiracetam* (Levetiracetam*) 1,000 Mg Tablet, 1000 MG PO BID, TAB 04/04/18 Hydralazine Hcl* (Hydralazine Hcl*) 100 Mg Tablet, 100 MG PO BID, #90 TAB 04/04/18 Amlodipine Besylate* (Norvasc*) 5 Mg Tablet, 5 MG PO DAILY, TAB 04/04/18 Discontinued Reported Medications Aspirin* (Aspirin* EC) 81 Mg Tablet.dr, 81 MG PO DAILY, TAB 04/04/18 Medications Current Medications Amlodipine Besylate (Norvasc) 5 mg DAILY PO Last administered on 07/24/18 09:25; Admin Dose 5 MG; Start 07/24/18 at 09:00 Atorvastatin Calcium (Lipitor) 40 mg QHS PO ; Start 07/24/18 at 21:00 Carvedilol (Coreg) 25 mg BID PO Last administered on 07/24/18 09:27; Admin Dose 25 MG; Start 07/24/18 at 09:00 Hydralazine HCl (Apresoline) 100 mg BID PO Last administered on 07/24/18 09:26; Admin Dose 100 MG; Start 07/24/18 at 00:30 Multivit/Ca Carb/ B Cmplx/FA/Prenat (Mee-Patt) 1 tab DAILY PO Last administered on 07/24/18 09:25; Admin Dose 1 TAB; Start 07/24/18 at 09:00 Potassium Chloride (Klor-Con 10) 10 meq DAILY PO Last administered on 07/24/18 09:26; Admin Dose 10 MEQ; Start 07/24/18 at 09:00 Sodium Chloride 1,000 ml @ 60 mls/hr [id number] IV Last administered on 07/24/18at 03:06; Admin Dose 60 MLS/HR; Start 07/24/18 at 00:12 IV Flush (NS 3 ml) 3 ml PER PROTOCOL IV ; Start 07/24/18 at 00:30 Lorazepam (Ativan) 1 mg Q2H PRN IV SEIZURES; Start 07/24/18 at 00:30 Ondansetron HCl (Zofran Inj) 4 mg Q6H PRN IV NAUSEA/VOMITING; Start 07/24/18 at 00:30 Nitroglycerin (Nitroglycerin (Sl Tab) 0.4 Mg) 1 tab Q5M PRN SL .CHEST PAIN; Start 07/24/18 at 00:30 Acetaminophen (Tylenol Tab) 650 mg Q6H PRN PO .PAIN 1-3 OR TEMP; Start 07/24/18 at 00:30 Docusate Sodium (Colace) 100 mg Q12H PRN PO .CONSTIPATION; Start 07/24/18 at 00:30 Bisacodyl (Dulcolax) 5 mg DAILY PRN PO .CONSTIPATION; Start 07/24/18 at 00:30 Hydralazine HCl (Apresoline) 10 mg Q4H PRN IV ELEVATED BLOOD PRESSURE Last administered on 07/24/18at 01:10; Admin Dose 10 MG; Start 07/24/18 at 00:30 Morphine Sulfate (morphine) 2 mg Q4H PRN IV SEVERE PAIN LEVEL 7-10 Last administered on 07/24/18at 09:29; Admin Dose 2 MG; Start 07/24/18 at 05:30 Acetaminophen/ Hydrocodone Bitart (Haskins (5/325)) 1 tab Q4H PRN PO MODERATE PAIN LEVEL 4-6 Last administered on 07/24/18at 14:40; Admin Dose 1 TAB; Start 07/24/18 at 12:00 Levetiracetam (Keppra) 500 mg BID PO ; Start 07/24/18 at 21:00 Allergies: Coded Allergies: No Known Allergy (Unverified , 07/24/18) Social History Smoking Status: Current every day smoker Drug Use: marijuana, other (History of meth use) Exam/Review of Systems Vital Signs Vitals Vital Signs Date Temp Pulse Resp B/P (MAP) Pulse Ox O2 O2 Flow FiO2 Time Delivery Rate 07/24/18 86 16:22 07/24/18 98.4 19 140/85 97 15:14 (103) 07/24/18 Room Air 03:15 Intake and Output 07/23/18 07/23/18 07/24/18 1515:00 23:00 07:00 IntakeIntake Total 200 ml OutputOutput Total 600 ml BalanceBalance -400 ml Exam Constitutional: alert, oriented Head: normocephalic, atraumatic Neck: No jvd Respiratory: diminished breath sounds; No clear to auscultation Cardiovascular: regular rate and rhythm, systolic murmur (2/6 BRYANT); No edema Gastrointestinal: soft, non-tender; No distended Neurological: nl mental status, nl speech Labs Result Diagram: 07/23/18212707/24/18 0557 Results 24hrs Laboratory Tests Test 07/23/18 21:26 07/23/18 21:28 07/24/18 01:17 07/24/18 05:57 Bedside Glucose 142 White Blood Count 4.2 #L Red Blood Count 4.81 Hemoglobin 11.3 L Hematocrit 35.8 L Mean Corpuscular 74.4 L Volume Mean Corpuscular 23.5 L Hemoglobin Mean Corpuscular 31.6 L Hemoglobin Concent Red Cell 18.0 H Distribution Width Platelet Count 176 # Mean Platelet Volume 11.7 H Immature 0.000 L Granulocytes % Neutrophils % Segmented 42 Neutrophils % (Manual) Lymphocytes % Lymphocytes % 45 (Manual) Monocytes % Monocytes % (Manual) 12 H Eosinophils % Basophils % Basophils % (Manual) 1 Nucleated Red Blood 0.0 Cells % Immature 0.000 Granulocytes # Neutrophils # Lymphocytes (Manual) 1.8 Lymphocytes # Monocytes # Monocytes # (Manual) 0.5 Eosinophils # Basophils # Basophils # (Manual) 0.0 Nucleated Red Blood Cells # Platelet Estimate NORMAL Giant Platelets 4 H Polychromasia 1+ Prothrombin Time 12.1 Prothrombin Time 0.9 Ratio INR International 0.89 Normalized Ratio Activated 26.1 Partial Thromboplast Time Sodium Level 139 139 Potassium Level 3.0 L 3.1 L Chloride Level 102 105 Carbon Dioxide Level 30 27 Anion Gap 7 7 Blood Urea Nitrogen 39 H 36 H Creatinine 5.08 H 4.57 H Est Glomerular 16 L 18 L Filtrat Rate mL/min Glucose Level 149 98 # Calcium Level 9.0 9.1 Total Bilirubin 0.3 Direct Bilirubin 0.00 Indirect Bilirubin 0.3 Aspartate Amino 27 Transf (AST/SGOT) Alanine 17 Aminotransferase (AL T/SGPT) Alkaline Phosphatase 60 Troponin I 0.154 *H 0.159 *H 0.166 *H B-Type Natriuretic 79278 H Peptide Total Protein 6.8 Albumin 3.7 Globulin 3.10 Albumin/Globulin 1.19 Ratio Creatine Kinase 374 H 340 H Creatine Kinase 0.4 0.4 Index Creatinine Kinase MB 1.36 1.52 (Mass) Ethyl Alcohol Level < 10.0 H Iron Level 27 L Total Iron Binding 232 L Capacity Percent Iron 12 L Saturation Ferritin 21.2 Valproic Acid < 10 L (Depakene) Level Test 07/24/18 06:00 07/24/18 10:06 07/24/18 10:43 Urine Microscopic 3 1 RBC Urine Microscopic 1 3 WBC Urine Random 46.48 Creatinine Urine Random Sodium 110 H Urine 3.98 Protein/Creatinine Ratio Urine Total Protein 185.0 H 2+ H Urine Opiates Screen Positive Urine Barbiturates Negative Urine Amphetamines Negative Screen Urine Negative Benzodiazepines Screen Urine Cocaine Screen Negative Urine Cannabinoids Positive Creatine Kinase 355 H Creatine Kinase 0.5 Index Creatinine Kinase MB 1.84 (Mass) Troponin I 0.167 *H Urine Color COLORLESS Urine Clarity CLEAR Urine pH 6.0 Urine Specific 1.009 [place] Urine Ketones NEGATIVE Urine Nitrite NEGATIVE Urine Bilirubin NEGATIVE Urine Urobilinogen NEGATIVE Urine Leukocyte NEGATIVE Esterase Urine Hemoglobin NEGATIVE Urine Glucose NEGATIVE Medications Medications Current Medications Amlodipine Besylate (Norvasc) 5 mg DAILY PO Last administered on 07/24/18 09:25; Admin Dose 5 MG; Start 07/24/18 at 09:00 Atorvastatin Calcium (Lipitor) 40 mg QHS PO ; Start 07/24/18 at 21:00 Carvedilol (Coreg) 25 mg BID PO Last administered on 07/24/18 09:27; Admin Dose 25 MG; Start 07/24/18 at 09:00 Hydralazine HCl (Apresoline) 100 mg BID PO Last administered on 07/24/18 09:26; Admin Dose 100 MG; Start 07/24/18 at 00:30 Multivit/Ca Carb/ B Cmplx/FA/Prenat (Mee-Patt) 1 tab DAILY PO Last administered on 07/24/18 09:25; Admin Dose 1 TAB; Start 07/24/18 at 09:00 Potassium Chloride (Klor-Con 10) 10 meq DAILY PO Last administered on 07/24/18 09:26; Admin Dose 10 MEQ; Start 07/24/18 at 09:00 Sodium Chloride 1,000 ml @ 60 mls/hr [id number] IV Last administered on 5/16/19at 03:06; Admin Dose 60 MLS/HR; Start 07/24/18 at 00:12 IV Flush (NS 3 ml) 3 ml PER PROTOCOL IV ; Start 07/24/18 at 00:30 Lorazepam (Ativan) 1 mg Q2H PRN IV SEIZURES; Start 07/24/18 at 00:30 Ondansetron HCl (Zofran Inj) 4 mg Q6H PRN IV NAUSEA/VOMITING; Start 07/24/18 at 00:30 Nitroglycerin (Nitroglycerin (Sl Tab) 0.4 Mg) 1 tab Q5M PRN SL .CHEST PAIN; St art 07/24/18 at 00:30 Acetaminophen (Tylenol Tab) 650 mg Q6H PRN PO .PAIN 1-3 OR TEMP; Start 07/24/18 at 00:30 Docusate Sodium (Colace) 100 mg Q12H PRN PO .CONSTIPATION; Start 07/24/18 at 00:30 Bisacodyl (Dulcolax) 5 mg DAILY PRN PO .CONSTIPATION; Start 07/24/18 at 00:30 Hydralazine HCl (Apresoline) 10 mg Q4H PRN IV ELEVATED BLOOD PRESSURE Last administered on 07/24/18at 01:10; Admin Dose 10 MG; Start 07/24/18 at 00:30 Morphine Sulfate (morphine) 2 mg Q4H PRN IV SEVERE PAIN LEVEL 7-10 Last ad ministered on 07/24/18at 09:29; Admin Dose 2 MG; Start 07/24/18 at 05:30 Acetaminophen/ Hydrocodone Bitart (Haskins (5/325)) 1 tab Q4H PRN PO MODERATE PAIN LEVEL 4-6 Last administered on 07/24/18at 14:40; Admin Dose 1 TAB; Start 07/24/18 at 12:00 Levetiracetam (Keppra) 500 mg BID PO ; Start 07/24/18 at 21:00 KULWINDER LOZANO July 24, 2018 17:39
[2018-07-24] MEDS: LEVETIRACETAM 500 MG TAB PO SCH (20:10)
[2018-07-24] MEDS: ATORVASTATIN 40 MG TAB PO SCH (20:10)
[2018-07-24] MEDS: AMLODIPINE 5 MG TAB PO SCH (20:11)
[2018-07-24] MEDS ORDERED: LEVETIRACETAM 250 MG TAB PO SCH (21:00)
[2018-07-24] MEDS ORDERED: HYDROCODONE/APAP (5/325) TAB PO PRN (23:30)
[2018-07-25] VITALS (10 sets, daily range): BP systolic 130–175; BP diastolic 87–116; PULSE 68–98; RESP 18–19
[2018-07-25] MEDS: morphine 2 MG INJ IV PRN (04:48)
[2018-07-25] MEDS: HYDROCODONE/APAP (5/325) TAB PO PRN ×2 (06:53→22:25)
[2018-07-25] MEDS ORDERED: POTASSIUM CHLORIDE (SR) 20 MEQ TAB PO STA (07:22)
--- NOTE | 2018-07-25 08:56 | PN ---
DATE: 07/25/2018 SUBJECTIVE: The patient is stable, no events overnight. No fevers, chills, nausea or vomiting. OBJECTIVE: VITAL SIGNS: Blood pressure is 175/110, pulse 73, respirations 18, temperature 98.4. HEENT: Head is normocephalic. NECK: Supple. HEART: Regular rate. LUNGS: Show diminished breath sounds at the base. ABDOMEN: Soft, nontender to palpation. No rebound or guarding. EXTREMITIES: Negative for clubbing, cyanosis, no edema. DERMATOLOGIC: No rashes. MUSCULOSKELETAL: No joint effusion. NEUROLOGIC: No change in exam. MEDICATIONS: Reviewed. LABORATORY DATA: Reviewed. Urinalysis was reviewed. IMAGING STUDIES: Reviewed. Renal ultrasound was reviewed. ASSESSMENT AND PLAN: 1. Renal failure, possible nonoliguric acute kidney injury on top of chronic kidney disease stage IV with previous baseline creatinine around 3 to 4 mg/dL. Etiology of acute kidney injury is possibly secondary to hemodynamics, diuretics. Etiology of chronic kidney disease is unclear, possible hypert ensive nephrosclerosis, tubular injury from nephrotoxic use, i.e. methamphetamine polysubstance abuse . Possibility of primary glomerulopathy is a consideration. The patient's urinalysis was bland. Th ere is noted nephrotic range proteinuria. Plan at this point is to do a full serologic workup. We w ill also check SPEP and UPEP immunofixation. I did speak with the patient about the possibility of r enal biopsy to further delineate etiology of acute kidney injury and chronic kidney disease. We woul d otherwise continue current treatment plans, supportive care, renally dose all medications. We will discontinue IV fluids and monitor. 2. Hypokalemia. We will replete with potassium chloride, discontinue IV fluids. 3. Anemia with iron deficiency. Continue to monitor hemoglobin and hematocrit levels. Consider IV Ferrlecit. No need for Epogen at this time. 4. Hypertension in part due to increased intravascular volume. We will discontinue IV fluids, bereket nue current blood pressure regimen. Defer any TAB inhibitor or ARB. 5. Seizure, possibly due to hypoglycemia. Continue to monitor. 6. Non-ST elevation myocardial infarction type 1 versus type 2. Continue to monitor. Follow up wit h cardiology. A 2D echo was reviewed, showed evidence of severe left ventricular hypertrophy, likely due to longstanding hypertension. Continue to monitor. 7. History of coronary artery disease. 8. History of congestive heart failure. 9. Dyslipidemia. Continue statin therapy. Dictated By: JALEN FITZPATRICK DO NR/NTS Conf#: [id number] DID#: [id number] CC: IVANNA BELTRAN MD; KULWINDER LOZANO MD;*EndCC*
[2018-07-25] MEDS: MULTIVIT/CA CARB/B CMPLX/FA TAB PO SCH (09:21)
[2018-07-25] MEDS: POTASSIUM CHLORIDE (SR) 10 MEQ TAB PO SCH (09:21)
[2018-07-25] MEDS: LEVETIRACETAM 500 MG TAB PO SCH ×2 (09:21→21:00)
[2018-07-25] MEDS: AMLODIPINE 5 MG TAB PO SCH ×2 (09:21→20:59)
[2018-07-25] MEDS ORDERED: LOSARTAN 50 MG TAB PO SCH (10:00)
--- NOTE | 2018-07-25 10:12 | CONS ---
Assessment/Plan Assessment/Plan Hospital Course (Demo Recall) NSTEMI: likely type II in setting of seizure and hypertensive crisis. Doubt CAD and trop trend of 0.16 x 4 is not consistent with ACS. With his recent ICH and low suspicion for CAD, I would not pursue further as he cannot tolerate anticoagulation or antiplatelets Hypertensive crisis: BP 220/140s on admission. 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 Has severe LVH likely from uncontrolled HTN but amyloid also in the differential especially with spontaneous ICH ICH 03/2018: resolved on recent imaging -no ASA or anticoagulation -amlodipine 5mg BID -coreg 25mg BID -hydralazine 100mg TID -clonidine 0.2mg TID Consultation Date/Type/Reason Admit Date/Time July 23, 2018 at 23:53 Initial Consult Date 07/24/18 Type of Consult Cardiology Requesting Provider: IVANNA BELTRAN Date/Time of Note DATE: 07/25/18 TIME: 10:00 24 HR Interval Summary Free Text/Dictation Mild headache but no chest pain. BP still elevated. Exam/Review of Systems Vital Signs Vitals Vital Signs Date Temp Pulse Resp B/P (MAP) Pulse Ox O2 O2 Flow FiO2 Time Delivery Rate 07/25/18 83 08:12 07/25/18 98.4 19 175/110 97 07:35 (131) 07/25/18 Room Air 04:00 Intake and Output 07/24/18 07/24/18 07/25/18 1515:00 23:00 07:00 IntakeIntake Total 600 ml OutputOutput Total 900 ml BalanceBalance -300 ml Exam Constitutional: alert, oriented Head: normocephalic, atraumatic Neck: No jvd Respiratory: clear to auscultation Cardiovascular: regular rate and rhythm; No edema, No systolic murmur Gastrointestinal: soft, non-tender Neurological: nl mental status, nl speech Labs Result Diagram: 07/25/1836 07/25/1836 Results 24hrs Laboratory Tests Test 07/24/18 10:06 07/24/18 10:43 07/25/18 05:36 Creatine Kinase 355 H Creatine Kinase Index 0.5 Creatinine Kinase MB (Mass) 1.84 Troponin I 0.167 *H Urine Color COLORLESS Urine Clarity CLEAR Urine pH 6.0 Urine Specific [place] 1.009 Urine Ketones NEGATIVE Urine Nitrite NEGATIVE Urine Bilirubin NEGATIVE Urine Urobilinogen NEGATIVE Urine Leukocyte Esterase NEGATIVE Urine Microscopic RBC 1 Urine Microscopic WBC 3 Urine Hemoglobin NEGATIVE Urine Glucose NEGATIVE Urine Total Protein 2+ H White Blood Count 4.0 L Red Blood Count 4.58 L Hemoglobin 10.7 L Hematocrit 33.8 L Mean Corpuscular Volume 73.8 L Mean Corpuscular Hemoglobin 23.4 L Mean Corpuscular Hemoglobin Concent 31.7 L Red Cell Distribution Width 18.1 H Platelet Count 182 Mean Platelet Volume 12.6 H Immature Granulocytes % 0.300 Neutrophils % 48.3 Lymphocytes % 34.7 Monocytes % 13.9 H Eosinophils % 2.3 Basophils % 0.5 Nucleated Red Blood Cells % 0.0 Immature Granulocytes # 0.010 Neutrophils # 1.9 Lymphocytes # 1.4 Monocytes # 0.6 Eosinophils # 0.1 Basophils # 0.0 Nucleated Red Blood Cells # 0.0 Sodium Level 139 Potassium Level 2.9 *L Chloride Level 103 Carbon Dioxide Level 29 Anion Gap 7 Blood Urea Nitrogen 30 H Creatinine 4.41 H Est Glomerular Filtrat Rate mL/min 19 L Glucose Level 88 Hemoglobin A1c 5.5 Calcium Level 9.0 Phosphorus Level 3.6 Magnesium Level 2.0 Triglycerides Level 68 Cholesterol Level 167 LDL Cholesterol, Calculated 68 HDL Cholesterol 85 H Cholesterol/HDL Ratio 1.9 Thyroid Stimulating Hormone (TSH) 1.380 Medications Medications Current Medications Atorvastatin Calcium (Lipitor) 40 mg QHS PO Last administered on 07/24/18at 20:10; Admin Dose 40 MG; Start 07/24/18 at 21:00 Carvedilol (Coreg) 25 mg BID PO Last administered on 07/25/18at 09:20; Admin Dose 25 MG; Start 07/24/18 at 09:00 Hydralazine HCl (Apresoline) 100 mg BID PO Last administered on 07/25/18 09:21; Admin Dose 100 MG; Start 07/24/18 at 00:30 Multivit/Ca Carb/ B Cmplx/FA/Prenat (Mee-Patt) 1 tab DAILY PO Last administered on 07/25/18at 09:21; Admin Dose 1 TAB; Start 07/24/18 at 09:00 Potassium Chloride (Klor-Con 10) 10 meq DAILY PO Last administered on 07/25/18 09:21; Admin Dose 10 MEQ; Start 07/24/18 at 09:00 IV Flush (NS 3 ml) 3 ml PER PROTOCOL IV ; Start 07/24/18 at 00:30 Lorazepam (Ativan) 1 mg Q2H PRN IV SEIZURES; Start 07/24/18 at 00:30 Ondansetron HCl (Zofran Inj) 4 mg Q6H PRN IV NAUSEA/VOMITING; Start 07/24/18 at 00:30 Nitroglycerin (Nitroglycerin (Sl Tab) 0.4 Mg) 1 tab Q5M PRN SL .CHEST PAIN; Start 07/24/18 at 00:30 Acetaminophen (Tylenol Tab) 650 mg Q6H PRN PO .PAIN 1-3 OR TEMP; Start 07/24/18 at 00:30 Docusate Sodium (Colace) 100 mg Q12H PRN PO .CONSTIPATION; Start 07/24/18 at 00:30 Bisacodyl (Dulcolax) 5 mg DAILY PRN PO .CONSTIPATION; Start 07/24/18 at 00:30 Hydralazine HCl (Apresoline) 10 mg Q4H PRN IV ELEVATED BLOOD PRESSURE Last administered on 07/24/18at 01:10; Admin Dose 10 MG; Start 07/24/18 at 00:30 Morphine Sulfate (morphine) 2 mg Q4H PRN IV SEVERE PAIN LEVEL 7-10 Last administered on 07/25/18at 04:48; Admin Dose 2 MG; Start 07/24/18 at 05:30 Levetiracetam (Keppra) 500 mg BID PO Last administered on 07/25/18 09:21; Admin Dose 500 MG; Start 07/24/18 at 21:00 Amlodipine Besylate (Norvasc) 5 mg BID PO Last administered on 07/25/18 09:21; Admin Dose 5 MG; Start 07/24/18 at 21:00 Acetaminophen/ Hydrocodone Bitart ([place] (5/325)) 2 tab Q6H PRN PO MODERATE PAIN LEVEL 4-6 Last administered on 07/25/18at 06:53; Admin Dose 2 TAB; Start 07/24/18 at 23:30 KULWINDER LOZANO July 25, 2018 10:12
--- NOTE | 2018-07-25 14:32 | RADRPT ---
Vent Rate: 89 bpm RR Interval: 0 msec VT Interval: 190 msec QRS Duration: 88 msec QT Interval: 394 msec QTC Interval: 479 msec P-R-T [place]: 51 - 53 - 0 degrees Normal sinus rhythm Biatrial enlargement ST & T wave abnormality, consider inferolateral ischemia Prolonged QT Abnormal ECG Electronically Signed By: [facility]
--- NOTE | 2018-07-25 14:32 | RADRPT ---
Vent Rate: 73 bpm RR Interval: 0 msec DC Interval: 176 msec QRS Duration: 92 msec QT Interval: 400 msec QTC Interval: 440 msec P-R-T [place]: 33 - 51 - 0 degrees Normal sinus rhythm with sinus arrhythmia Possible Left atrial enlargement ST & T wave abnormality, consider inferolateral ischemia Abnormal ECG Electronically Signed By: [facility]
--- NOTE | 2018-07-25 15:43 | CONS ---
Assessment/Plan Assessment/Plan Hospital Course 33 yo M with multiple comorbidities who presents for evaluation of seizures. He reports medication noncompliance... the likely underlying etiology. CTH is notable for resolution of prior R frontal hemorrhage, but is otherwise without acute intracranial pathology. UA neg; CXR unrevealing UDS + opiates, thc P: OK to continue Keppra 500mg BID Ativan IV PRN prolonged seizure or for cluster Other medical management per primary Will follow clinically Consultation Date/Type/Reason Admit Date/Time July 23, 2018 at 23:53 Type of Consult Neurology Reason for Consultation epilepsy Requesting Provider: IVANNA BELTRAN Date/Time of Note DATE: 07/25/18 TIME: 15:42 24 HR Interval Summary Free Text/Dictation Continues acute care Exam Vital Signs Vitals Vital Signs Date Temp Pulse Resp B/P (MAP) Pulse Ox O2 O2 Flow FiO2 Time Delivery Rate 07/25/18 74 12:07 07/25/18 130/87 96 11:55 (101) 07/25/18 98.4 07:35 07/25/18 Room Air 04:00 Intake and Output 07/24/18 07/24/18 07/25/18 1515:00 23:00 07:00 IntakeIntake Total 600 ml OutputOutput Total 900 ml BalanceBalance -300 ml RADHA PETERS July 25, 2018 15:43
--- NOTE | 2018-07-25 16:38 | PN ---
Date/Time of Note Date/Time of Note DATE: 07/25/18 TIME: 16:37 Assessment/Plan VTE Prophylaxis Risk score (from Nsg)>0 risk: 0 SCD applied (from Nsg): Yes Pharmacological prophylaxis: heparin Lines/Catheters IV Catheter Type (from Nrsg): Peripheral IV Urinary Cath still in place: No Assessment/Plan Hospital Course EXAM Resting comfortably, no distress AOx3, pleasant CN II-XII in tact JVD mild Clear lungs RRR Abdomen soft nt Ext without edema A/P: 33 yo male with h/o CKD, hypertension, ICH leading to seizure presents with witnessed seizure in setting of hypertensive crisis Severe hypertension: - Continue amlodipine 5, carvedilol 25, hydralazine 100. Clonidine added with good effect. Will gradually titrate to normotension Seizure: - Management per neurology - Continue keppra CKD V: - Likley 2/2 hypertension. GFR not much different than prior. Requires BP control. Likely ESRD in near future but no acute need for HD - Trial of gentle fluids - Renal US noted - Management per renal Anemia of CKD: - Iron per renal NSTEMI: - I suspect this is type II [place] in setting of advanced CKD, seizure and severe hypertension H/o ICH Result Diagram: 07/25/18 0536 07/25/18 0536 Results 24hrs Laboratory Tests Test 07/25/18 05:36 07/25/18 10:09 White Blood Count 4.0 L Red Blood Count 4.58 L Hemoglobin 10.7 L Hematocrit 33.8 L Mean Corpuscular Volume 73.8 L Mean Corpuscular Hemoglobin 23.4 L Mean Corpuscular Hemoglobin Concent 31.7 L Red Cell Distribution Width 18.1 H Platelet Count 182 Mean Platelet Volume 12.6 H Immature Granulocytes % 0.300 Neutrophils % 48.3 Lymphocytes % 34.7 Monocytes % 13.9 H Eosinophils % 2.3 Basophils % 0.5 Nucleated Red Blood Cells % 0.0 Immature Granulocytes # 0.010 Neutrophils # 1.9 Lymphocytes # 1.4 Monocytes # 0.6 Eosinophils # 0.1 Basophils # 0.0 Nucleated Red Blood Cells # 0.0 Sodium Level 139 Potassium Level 2.9 *L Chloride Level 103 Carbon Dioxide Level 29 Anion Gap 7 Blood Urea Nitrogen 30 H Creatinine 4.41 H Est Glomerular Filtrat Rate mL/min 19 L Glucose Level 88 Hemoglobin A1c 5.5 Calcium Level 9.0 Phosphorus Level 3.6 Magnesium Level 2.0 Triglycerides Level 68 Cholesterol Level 167 LDL Cholesterol, Calculated 68 HDL Cholesterol 85 H Cholesterol/HDL Ratio 1.9 Thyroid Stimulating Hormone (TSH) 1.380 Complement C3 106 Complement C4 49 H Hepatitis B Surface Antigen NEGATIVE Hepatitis B Core Total Antibody NEGATIVE Hepatitis C Antibody NEGATIVE Subjective 24 Hr Interval Summary Free Text/Dictation BP better controlled Feels well Exam/Review of Systems Exam Vitals Vital Signs Date Temp Pulse Resp B/P (MAP) Pulse Ox O2 O2 Flow FiO2 Time Delivery Rate 07/25/18 97.9 75 18 152/95 97 16:22 (114) 07/25/18 Room Air 04:00 Intake and Output 07/24/18 07/24/18 07/25/18 1515:00 23:00 07:00 IntakeIntake Total 600 ml OutputOutput Total 900 ml BalanceBalance -300 ml Results Results 24hrs Laboratory Tests Test 07/25/18 05:36 07/25/18 10:09 White Blood Count 4.0 L Red Blood Count 4.58 L Hemoglobin 10.7 L Hematocrit 33.8 L Mean Corpuscular Volume 73.8 L Mean Corpuscular Hemoglobin 23.4 L Mean Corpuscular Hemoglobin Concent 31.7 L Red Cell Distribution Width 18.1 H Platelet Count 182 Mean Platelet Volume 12.6 H Immature Granulocytes % 0.300 Neutrophils % 48.3 Lymphocytes % 34.7 Monocytes % 13.9 H Eosinophils % 2.3 Basophils % 0.5 Nucleated Red Blood Cells % 0.0 Immature Granulocytes # 0.010 Neutrophils # 1.9 Lymphocytes # 1.4 Monocytes # 0.6 Eosinophils # 0.1 Basophils # 0.0 Nucleated Red Blood Cells # 0.0 Sodium Level 139 Potassium Level 2.9 *L Chloride Level 103 Carbon Dioxide Level 29 Anion Gap 7 Blood Urea Nitrogen 30 H Creatinine 4.41 H Est Glomerular Filtrat Rate mL/min 19 L Glucose Level 88 Hemoglobin A1c 5.5 Calcium Level 9.0 Phosphorus Level 3.6 Magnesium Level 2.0 Triglycerides Level 68 Cholesterol Level 167 LDL Cholesterol, Calculated 68 HDL Cholesterol 85 H Cholesterol/HDL Ratio 1.9 Thyroid Stimulating Hormone (TSH) 1.380 Complement C3 106 Complement C4 49 H Hepatitis B Surface Antigen NEGATIVE Hepatitis B Core Total Antibody NEGATIVE Hepatitis C Antibody NEGATIVE Medications Medication Current Medications Atorvastatin Calcium (Lipitor) 40 mg QHS PO Last administered on 07/24/18 20:10; Admin Dose 40 MG; Start 07/24/18 at 21:00 Carvedilol (Coreg) 25 mg BID PO Last administered on 07/25/18 09:20; Admin Dose 25 MG; Start 07/24/18 at 09:00 Hydralazine HCl (Apresoline) 100 mg BID PO Last administered on 07/25/18 09:21; Admin Dose 100 MG; Start 07/24/18 at 00:30 Multivit/Ca Carb/ B Cmplx/FA/Prenat (Mee-Patt) 1 tab DAILY PO Last administered on 07/25/18 09:21; Admin Dose 1 TAB; Start 07/24/18 at 09:00 Potassium Chloride (Klor-Con 10) 10 meq DAILY PO Last administered on 07/25/18 09:21; Admin Dose 10 MEQ; Start 07/24/18 at 09:00 IV Flush (NS 3 ml) 3 ml PER PROTOCOL IV ; Start 07/24/18 at 00:30 Lorazepam (Ativan) 1 mg Q2H PRN IV SEIZURES; Start 07/24/18 at 00:30 Ondansetron HCl (Zofran Inj) 4 mg Q6H PRN IV NAUSEA/VOMITING; Start 07/24/18 at 00:30 Nitroglycerin (Nitroglycerin (Sl Tab) 0.4 Mg) 1 tab Q5M PRN SL .CHEST PAIN; Start 07/24/18 at 00:30 Acetaminophen (Tylenol Tab) 650 mg Q6H PRN PO .PAIN 1-3 OR TEMP; Start 07/24/18 at 00:30 Docusate Sodium (Colace) 100 mg Q12H PRN PO .CONSTIPATION; Start 07/24/18 at 00:30 Bisacodyl (Dulcolax) 5 mg DAILY PRN PO .CONSTIPATION; Start 07/24/18 at 00:30 Hydralazine HCl (Apresoline) 10 mg Q4H PRN IV ELEVATED BLOOD PRESSURE Last administered on 07/24/18at 01:10; Admin Dose 10 MG; Start 07/24/18 at 00:30 Morphine Sulfate (morphine) 2 mg Q4H PRN IV SEVERE PAIN LEVEL 7-10 Last administered on 07/25/18at 04:48; Admin Dose 2 MG; Start 07/24/18 at 05:30 Levetiracetam (Keppra) 500 mg BID PO Last administered on 07/25/18 09:21; Admin Dose 500 MG; Start 07/24/18 at 21:00 Amlodipine Besylate (Norvasc) 5 mg BID PO Last administered on 07/25/18 09:21; Admin Dose 5 MG; Start 07/24/18 at 21:00 Acetaminophen/ Hydrocodone Bitart ([place] (5/325)) 2 tab Q6H PRN PO MODERATE PAIN LEVEL 4-6 Last administered on 07/25/18 06:53; Admin Dose 2 TAB; Start 07/24/18 at 23:30 Clonidine ([place]) 0.2 mg Q8 PO Last administered on 07/25/18 16:25; Admin Dose 0.2 MG; Start 07/25/18 at 10:00 BRIANA BRADFORD MD July 25, 2018 16:38
[2018-07-25] MEDS: ATORVASTATIN 40 MG TAB PO SCH (20:58)
[2018-07-26] VITALS (7 sets, daily range): BP systolic 144–156; BP diastolic 82–101; PULSE 60–77; RESP 16–20
[2018-07-26] MEDS: LEVETIRACETAM 500 MG TAB PO SCH (08:08)
[2018-07-26] MEDS: POTASSIUM CHLORIDE (SR) 10 MEQ TAB PO SCH (08:09)
[2018-07-26] MEDS: MULTIVIT/CA CARB/B CMPLX/FA TAB PO SCH (08:09)
[2018-07-26] MEDS: AMLODIPINE 5 MG TAB PO SCH (08:09)
[2018-07-26] MEDS ORDERED: SPIRONOLACTONE 25 MG TAB PO SCH (09:00)
--- NOTE | 2018-07-26 09:59 | PN ---
DATE: 07/26/2018 SUBJECTIVE: The patient's blood pressure has improved. No other acute events noted. No hemoptysis, hematemesis or hematochezia. OBJECTIVE: VITAL SIGNS: Blood pressure is 147/101, respiration 18, pulse 65, temperature 97.7. HEENT: Head is normocephalic. NECK: Supple. HEART: Regular rate. LUNGS: Show diminished breath sounds at the base. ABDOMEN: Soft, nontender to palpation without rebound or guarding. EXTREMITIES: Negative for clubbing, cyanosis, no edema. DERMATOLOGIC: No rashes. MUSCULOSKELETAL: No joint effusion. NEUROLOGIC: No change in exam. MEDICATIONS: Reviewed. LABORATORY DATA: Shows sodium 136, potassium 3.3, BUN 33, creatinine 4.49. The patient's serologica l data has been reviewed. ASSESSMENT AND PLAN: 1. Nonoliguric acute kidney injury on top of chronic kidney disease stage IV with previous baseline creatinine around 3 to 4 mg/dL. Etiology of acute kidney injury is likely from hemodynamics. Patien t's renal function appears to be stabilizing around creatinine of 4.5 mg/dL. Etiology of underlying chronic kidney disease is likely multifactorial secondary to hypertensive nephrosclerosis, possible n ephrotoxicity, possible tubular injury from nephrotoxic use, i.e. methamphetamines, polysubstance abu se. Possibility of a primary glomerulopathy is a consideration. The patient does have nephrotic ran ge proteinuria on urine protein/creatinine ratio. The patient is undergoing full evaluation. Serolo gies have been sent. SPEP, UPEP immunofixation have been sent. I also spoke with the patient about the possibility of renal biopsy once blood pressure and renal function stabilize. We will continue c urrent treatment plan. Continue supportive care, renally dose all meds. 2. Hypertension with hypokalemia. Etiology may be secondary mineralocorticoid access, i.e. hyperald osteronism. Plan is to check a renin aldosterone level. Would also consider checking an arterial re nal ultrasound to rule out any form of renal artery stenosis, further evaluation including urine meta nephrines would be a consideration. Will continue to monitor. Continue current blood pressure regim en. Would add an TAB inhibitor once patient's renal function stabilized. Will add Aldactone at this time. Monitor closely. 3. Anemia with iron deficiency. Continue to monitor hemoglobin and hematocrit levels. The patient will be started on IV Ferrlecit and monitor. 4. Hypertension. Etiology is likely multifactorial secondary to chronic kidney disease, a course of IV fluids, possible hyperaldosteronism as stated above. Plan is to continue current blood pressure regimen. We will start the patient on Aldactone, holding TAB inhibitor and ARB at this time. Would consider resuming once renal functions stay stable. 5. Seizures. Continue to monitor. 6. NSTEMI type 2, continue medical management, follow up with cardiology. 7. History of coronary artery disease,. 8. History of congestive heart failure. 9. Dyslipidemia. Continue statin therapy. Dictated By: JALEN FITZPATRICK DO NR/NTS Conf#: [id number] DID#: [id number] CC: IVANNA BELTRAN MD;*End*
[2018-07-26] MEDS ORDERED: CLON0.2T12 PO (11:06)
[2018-07-26] MEDS ORDERED: FURO40TA4 PO (11:06)
[2018-07-26] MEDS ORDERED: AMLO-145 PO (11:06)
[2018-07-26] MEDS ORDERED: CARV25TA79 PO (11:06)
[2018-07-26] MEDS ORDERED: HYDR100T25 PO (11:06)
[2018-07-26] MEDS ORDERED: LEVE-5 PO (11:06)
[2018-07-26] MEDS ORDERED: NEPH PO (11:06)
--- NOTE | 2018-07-26 11:15 | CONS ---
Assessment/Plan Assessment/Plan Hospital Course 33 yo M with multiple comorbidities who presents for evaluation of seizures. He reports medication noncompliance... the likely underlying etiology. CTH is notable for resolution of prior R frontal hemorrhage, but is otherwise without acute intracranial pathology. UA neg; CXR unrevealing UDS + opiates, thc P: OK to continue Keppra 500mg BID Ativan IV PRN prolonged seizure or for cluster Other medical management per primary Will follow clinically Consultation Date/Type/Reason Admit Date/Time July 23, 2018 at 23:53 Type of Consult Neurology Reason for Consultation epilepsy Requesting Provider: IVANNA BELTRAN Date/Time of Note DATE: 07/26/18 TIME: 11:14 24 HR Interval Summary Free Text/Dictation Continues acute care Exam Vital Signs Vitals Vital Signs Date Temp Pulse Resp B/P (MAP) Pulse Ox O2 O2 Flow FiO2 Time Delivery Rate 07/26/18 97.9 69 16 144/97 98 Room Air 11:10 (113) Intake and Output 07/25/18 07/25/18 07/26/18 1515:00 23:00 07:00 IntakeIntake Total 700 ml OutputOutput Total 900 ml BalanceBalance -200 ml RADHA PETERS July 26, 2018 11:15
--- NOTE | 2018-07-26 14:43 | DS ---
Date/Time of Note Date/Time of Note DATE: 07/26/18 TIME: 14:41 Discharge Summary Admission/Discharge Info Admit Date/Time July 23, 2018 at 23:53 Discharge Date/Time July 26, 2018 at 12:15 Discharge Diagnosis CKD V Hypertensive crisis Seizure Patient Condition: Stable Hospital Course EXAM Resting comfortably, no distress AOx3, pleasant CN II-XII in tact JVD mild Clear lungs RRR Abdomen soft nt Ext without edema A/P: 33 yo male with h/o CKD, hypertension, ICH leading to seizure presents with witnessed seizure in setting of hypertensive crisis Severe hypertension: - Continue amlodipine 5, carvedilol 25, hydralazine 100 were continued. Clonidine was added with good effect. He was encouraged to adhere to these medications as an outpatient Seizure: - He was continued on keppra by neurology. Head imaging was acute acute pathology CKD V: - This was stable and likely 2/2 hypertension. GFR not much different than prior. Requires BP control. Likely ESRD in near future but no acute need for HD - He was seen by Dr Guzmán who performed workup, some still pending at this time. The patient will follow up for results in clinic. NSTEMI: - I suspecedt this was type II MA in setting of advanced CKD, seizure and severe hypertension. Seen by cardiology with no plan for further workup Home Meds Active Scripts Amlodipine Besylate* (Amlodipine Besylate*) 5 Mg Tablet, 5 MG PO BID for 60 Days, #120 TAB 5 Refills Prov:BRIANA BRADFORD MD 07/26/18 Clonidine Hcl* (Catapres*) 0.2 Mg Tablet, 0.2 MG PO Q8 for 60 Days, #180 TAB 5 Refills Prov:BRIANA BRADFORD MD 07/26/18 Levetiracetam* (Keppra*) 500 Mg Tablet, 500 MG PO BID for 60 Days, #30 TAB Prov:BRIANA BRADFORD MD 07/26/18 Multivit/Ca Carb/B Cmplx/Fa* (Mee-Patt*) 1 Tab Tab, 1 TAB PO DAILY for 90 Days, #90 TAB 4 Refills Prov:BRIANA BRADFORD MD 07/26/18 Furosemide* (Furosemide*) 40 Mg Tablet, 40 MG PO DAILY for 30 Days, #30 TAB Prov:BRIANA BRADFORD MD 07/26/18 Carvedilol* (Carvedilol*) 25 Mg Tablet, 25 MG PO BID for 60 Days, #120 TAB 5 Refills Prov:BRIANA BRADFORD MD 07/26/18 Hydralazine Hcl* (Hydralazine Hcl*) 100 Mg Tablet, 100 MG PO BID for 60 Days, #120 TAB 6 Refills Prov:BRIANA BRADFORD MD 07/26/18 Discontinued Reported Medications Atorvastatin* (Atorvastatin*) 40 Mg Tablet, 40 MG PO QHS, #30 TAB 04/04/18 Levetiracetam* (Levetiracetam*) 1,000 Mg Tablet, 1000 MG PO BID, TAB 04/04/18 Amlodipine Besylate* (Norvasc*) 5 Mg Tablet, 5 MG PO DAILY, TAB 04/04/18 Aspirin* (Aspirin* EC) 81 Mg Tablet.dr, 81 MG PO DAILY, TAB 04/04/18 Discontinued Scripts Potassium Chloride* (K-Dur*) 10 Meq Tab.prt.sr, 10 MEQ PO DAILY, #20 TAB Prov:DONAVON FAIRBANKS MD 04/04/18 Primary Care Provider Not On Staff Doctor Pending Labs Laboratory Tests Test 07/26/18 06:31 White Blood Count 3.1 10^3/ul (4.8-10.8) Red Blood Count 4.56 10^6/ul (4.70-6.10) Hemoglobin 10.8 g/dl (14.0-18.0) Hematocrit 33.7 % (42.0-52.0) Mean Corpuscular Volume 73.9 fl (82.0-101.0) Mean Corpuscular Hemoglobin 23.7 pg (29.0-33.0) Mean Corpuscular Hemoglobin Concent 32.0 g/dl (32.0-37.0) Red Cell Distribution Width 18.0 % (11.5-14.5) Platelet Count 166 10^3/UL (140-415) Mean Platelet Volume 11.2 fl (7.4-10.4) Immature Granulocytes % 0.300 % (0.001-0.429) Neutrophils % 42.9 % (39.0-77.0) Lymphocytes % 38.6 % (15.0-51.0) Monocytes % 15.3 % (0.0-11.0) Eosinophils % 2.3 % (0.0-7.0) Basophils % 0.6 % (0.0-2.0) Nucleated Red Blood Cells % 0.0 /100WBC (0.0-0.0) Immature Granulocytes # 0.010 10^3/ul (0.0-0.031) Neutrophils # 1.3 10^3/ul (1.6-7.5) Lymphocytes # 1.2 10^3/ul (0.8-2.9) Monocytes # 0.5 10^3/ul (0.3-0.9) Eosinophils # 0.1 10^3/ul (0.0-0.5) Basophils # 0.0 10^3/ul (0.0-0.1) Nucleated Red Blood Cells # 0.0 10^3/ul (0.0-0.0) Sodium Level 136 mmol/L (135-144) Potassium Level 3.3 mmol/L (3.5-5.1) Chloride Level 103 mmol/L (97-110) Carbon Dioxide Level 28 mmol/L (21-31) Anion Gap 5 (5-13) Blood Urea Nitrogen 33 mg/dl (7-20) Creatinine 4.49 mg/dl (0.61-1.24) Est Glomerular Filtrat Rate mL/min 19 mL/min (>60) Glucose Level 106 mg/dl (70-220) Calcium Level 8.8 mg/dl (8.4-10.2) Phosphorus Level 3.8 mg/dl (2.5-4.9) Magnesium Level 2.1 mg/dl (1.7-2.5) BRIANA BRADFORD MD July 26, 2018 14:43
== END 2018-07-26 12:15 | disposition home or self-care (01) | DRG 281 ==
LOC: E/R 21:11 → TEL 23:53
PROVIDERS: ADMIT Family Medicine; ATTEND Family Medicine
DX: I13.0 Hypertensive heart and chronic kidney disease with heart failure and stage 1 through stage 4 chronic kidney disease, or unspecified chronic kidney disease (principal); I21.A1 Myocardial infarction type 2; N17.9 Acute kidney failure, unspecified; R56.9 Unspecified convulsions; I16.0 Hypertensive urgency; N18.9 Chronic kidney disease, unspecified; I50.9 Heart failure, unspecified
CPT/HCPCS: 36415; 70450; 71045; 76775; 80048; 80053; 80061; 80164; 80177; 80307; 81001; 81003; 82043; 82088; 82550; 82553; 82570; 82595; 82728; 82962; 83036; 83540; 83735; 83880; 84100; 84155; 84156; 84165; 84166; 84244; 84300; 84443; 84484; 85025; 85610; 85730; 86021; 86038; 86160; 86226; 86320; 86325; 86430; 86704; 86709; 86803; 87340; 93005; 93306; 96372; 96374; 96375; 97161; 97166; J0360; J1170; J1650; J1940; J1953; J2270; J2405; J7030; J7040

== ENCOUNTER 2018-07-28 10:30 | Emergency (ER) | payer OTHER ==
[~2018-07-28] VITALS: Ht 175.3 cm; Wt 75.8 kg
[~2018-07-28 10:30] MED LIST changes: +AMLO-145 PO; +CLON0.2T12 PO; +LEVE-5 PO
[2018-07-28 10:36] VITALS: Ht 175.3 cm; Wt 75.8 kg
--- NOTE | 2018-07-28 12:06 | ERD ---
ER Documentation Chief Complaint Chief Complaint COUGH X FEW DAYS , CHEST HURTS WITH COUGH HPI This is a 33-year-old man with multiple medical conditions presenting with sharp nonexertional nonradiating anterior chest pain made worse by coughing, he states he has been coughing and has had intermittent shortness of breath ever since he was discharged from this hospital about 2 days ago. He does have a history of CHF and was prescribed multiple medications to help control his symptoms and his blood pressure although he was unable to fill his prescriptions at a pharmacy yet. Patient continues to smoke and has been smoking today. He usually sleeps on 1-2 pillows and states for the last few days he is required 2 pillows but has had no lower extremity edema, no fevers or chills, no headache or blurry vision, no vomiting or diarrhea. ROS All systems reviewed and are negative except as per history of present illness. Medications Home Meds Active Scripts Furosemide* (Lasix*) 40 Mg Tablet, 40 MG PO DAILY, #30 TAB Prov:DONAVON TOBIAS MD 07/28/18 Amlodipine Besylate* (Amlodipine Besylate*) 5 Mg Tablet, 5 MG PO BID for 60 Days, #120 TAB 5 Refills Prov:BRIANA BRADFORD MD 07/26/18 Clonidine Hcl* (Catapres*) 0.2 Mg Tablet, 0.2 MG PO Q8 for 60 Days, #180 TAB 5 Refills Prov:BRIANA BRADFORD MD 07/26/18 Levetiracetam* (Keppra*) 500 Mg Tablet, 500 MG PO BID for 60 Days, #30 TAB Prov:BRIANA BRADFORD MD 07/26/18 Multivit/Ca Carb/B Cmplx/Fa* (Mee-Patt*) 1 Tab Tab, 1 TAB PO DAILY for 90 Days, #90 TAB 4 Refills Prov:BRIANA BRADFORD MD 07/26/18 Furosemide* (Furosemide*) 40 Mg Tablet, 40 MG PO DAILY for 30 Days, #30 TAB Prov:BRIANA BRADFORD MD 07/26/18 Carvedilol* (Carvedilol*) 25 Mg Tablet, 25 MG PO BID for 60 Days, #120 TAB 5 Refills Prov:BRIANA BRADFORD MD 07/26/18 Hydralazine Hcl* (Hydralazine Hcl*) 100 Mg Tablet, 100 MG PO BID for 60 Days, #120 TAB 6 Refills Prov:BRIANA BRADFORD MD 07/26/18 Discontinued Reported Medications Atorvastatin* (Atorvastatin*) 40 Mg Tablet, 40 MG PO QHS, #30 TAB 04/04/18 Levetiracetam* (Levetiracetam*) 1,000 Mg Tablet, 1000 MG PO BID, TAB 04/04/18 Amlodipine Besylate* (Norvasc*) 5 Mg Tablet, 5 MG PO DAILY, TAB 04/04/18 Aspirin* (Aspirin* EC) 81 Mg Tablet.dr, 81 MG PO DAILY, TAB 04/04/18 Discontinued Scripts Potassium Chloride* (K-Dur*) 10 Meq Tab.prt.sr, 10 MEQ PO DAILY, #20 TAB Prov:DONAVON FAIRBANKS MD 04/04/18 Allergies Allergies: Coded Allergies: No Known Allergy (Unverified , 07/28/18) PMhx/Soc Recent elevated troponin, chronic kidney disease, hypertension, history of seizures, drug abuse, anemia, history of intracranial hemorrhage, CHF with LVEF of 45%, alcohol abuse History of Surgery: No Anesthesia Reaction: No Hx Neurological Disorder: Yes (SEIZURES) Hx Respiratory Disorders: No Hx Cardiac Disorders: Yes (CHF, HTN) Hx Psychiatric Problems: No Hx Miscellaneous Medical Probl: Yes (CHRONIC KIDNEY DISEASE,H.OF ILLICIT DRUG , HTN ) Hx Alcohol Use: Yes Hx Substance Use: No Hx Tobacco Use: Yes Physical Exam Vitals Vital Signs Date Temp Pulse Resp B/P (MAP) Pulse Ox O2 O2 Flow FiO2 Time Delivery Rate 07/28/18 67 18 198/108 99 Room Air 12:54 (138) 07/28/18 98.3 71 18 209/112 97 10:36 (144) Physical Exam GENERAL: Well-developed, well-nourished, well-hydrated, in no apparent distress, looks nontoxic in appearance HEENT: Moist mucous membranes, pink conjunctiva, no cervical spine tenderness or step-off deformities, no goiter, no jaundice or icterus, extraocular movements intact without pain. No submandibular induration, and no pharyngeal erythema NEURO: Alert and oriented 3, cranial nerves II through XII intact bilaterally, pupils equal round reactive to light, no focal deficits or facial asymmetry, sensation intact distally Strength 5/5 in upper and lower extremities bilaterally CARDIAC: Regular rate and rhythm, no murmurs rubs or gallops LUNGS: Clear bilaterally no wheezing crackles or stridor ABDOMEN: Soft nontender, no guarding, no rigidity, no rebound, no psoas sign no obturator sign. Normoactive bowel sounds SKIN: Warm and dry to touch, no abrasions, contusions, or hematomas, no lacerations, no ecchymosis, no target lesions, and without ulcers EXTREMITIES: No clubbing cyanosis or edema, calves are bilaterally symmetrical, no Homans sign, no popliteal cord sign. Distal pulses equal and bilateral PSYCH: Normal affect without agitation or irritability Result Diagram: 07/28/18 1216 07/28/18 1216 Results 24 hrs Laboratory Tests Test 07/28/18 12:16 White Blood Count 3.9 10^3/ul Red Blood Count 5.11 10^6/ul Hemoglobin 12.0 g/dl Hematocrit 38.1 % Mean Corpuscular Volume 74.6 fl Mean Corpuscular Hemoglobin 23.5 pg Mean Corpuscular Hemoglobin Concent 31.5 g/dl Red Cell Distribution Width 17.7 % Platelet Count 167 10^3/UL Mean Platelet Volume 11.1 fl Immature Granulocytes % 0.300 % Neutrophils % 51.9 % Lymphocytes % 24.8 % Monocytes % 20.9 % Eosinophils % 1.6 % Basophils % 0.5 % Nucleated Red Blood Cells % 0.0 /100WBC Immature Granulocytes # 0.010 10^3/ul Neutrophils # 2.0 10^3/ul Lymphocytes # 1.0 10^3/ul Monocytes # 0.8 10^3/ul Eosinophils # 0.1 10^3/ul Basophils # 0.0 10^3/ul Nucleated Red Blood Cells # 0.0 10^3/ul Sodium Level 142 mmol/L Potassium Level 3.8 mmol/L Chloride Level 104 mmol/L Carbon Dioxide Level 28 mmol/L Anion Gap 10 Blood Urea Nitrogen 34 mg/dl Creatinine 5.03 mg/dl Est Glomerular Filtrat Rate mL/min 16 mL/min Glucose Level 91 mg/dl Calcium Level 9.8 mg/dl Total Bilirubin 0.3 mg/dl Direct Bilirubin 0.00 mg/dl Indirect Bilirubin 0.3 mg/dl Aspartate Amino Transf (AST/SGOT) 22 IU/L Alanine Aminotransferase (ALT/SGPT) 15 IU/L Alkaline Phosphatase 72 IU/L Troponin I 0.102 ng/ml B-Type Natriuretic Peptide 9900 PG/ML Total Protein 8.1 g/dl Albumin 4.2 g/dl Globulin 3.90 g/dl Albumin/Globulin Ratio 1.07 Lipase 59 U/L Current Medications Medications Dose Sig/Jen Start Time Status Last (Trade) Ordered Route PRN Stop Time Admin Dose Reason Admin Furosemide 40 mg ONCE ONCE 07/28/18 DC 07/28/18 (Lasix) IV 12:30 12:52 07/28/18 12:34 Enalaprilat 1.25 mg ONCE ONCE 07/28/18 DC 07/28/18 (Vasotec Iv) IV 12:30 12:52 07/28/18 12:34 Procedures/[facility] IV line was established patient was placed on monitor and storage bin tender rhythm strip revealed a sinus rhythm at about 70 bpm with upright P and T waves. Patient was afebrile EKG performed, read by me revealed a normal sinus rhythm at 69 bpm, normal axis, narrow QRS complex, diffuse anterolateral T wave inversions, no concerning ST elevation or depression noted 1 view chest x-ray performed, read by me reveals cardiomegaly and atelectatic changes bilaterally, no acute infiltrates, no pneumothorax, no pulmonary edema. I administered enalapril 1.25 mg IV for hypertension and furosemide 40 mg IV for mild CHF. CBC was unremarkable, electrolytes revealed chronic kidney disease with a BUN/creatinine 34/5, liver function tests are unremarkable, troponin was negative, BNP was about 10,000 down from 25,000 recently For continued hypertension I administered nitroglycerin 0.4 mg sublingual x2. Patient was laying supine in the emergency department and was saturating 100% on room air, his lung sounds were clear and his respiratory rate was 16 breaths/min and normal, he has unlabored breathing and looks otherwise well. His blood pressure improved his and his work-up was unremarkable I recommended continued outpatient management and strict medication compliance. Differential diagnoses considered, included but not limited to acute coronary syndrome, pulmonary embolism, aortic dissection, abdominal aortic aneurysm, sepsis, stroke, meningitis, encephalitis, pneumonia, appendicitis, ch olecystitis, bowel obstruction, pyelonephritis, nephrolithiasis, cystitis, as well as metabolic, hematologic, and electrolyte abnormalities. As well as abscess, cellulitis, fractures, and dislocations. Patient feels much better at this time, and vital signs are normal, symptoms have improved. I did give strict instructions to return to the ED if symptoms continue or worsen, patient will otherwise follow-up with primary care physician. Patient understood instructions and agreed to plan. Disclaimer: Inadvertent spelling and grammatical errors are likely due to EHR/dictation software use and do not reflect on the overall quality of patient care. Also, please note that the electronic time recorded on this note does not necessarily reflect the actual time of the patient encounter. Departure Diagnosis: Primary Impression: Chronic kidney disease Chronic kidney disease stage: unspecified stage Qualified Codes: N18.9 - Chronic kidney disease, unspecified Additional Impressions: CHF (congestive heart failure) Heart failure type: combined systolic and diastolic Heart failure chronicity: acute on chronic Qualified Codes: I50.43 - Acute on chronic combined systolic (congestive) and diastolic (congestive) heart failure Hypertension Hypertension type: essential hypertension Qualified Codes: I10 - Essential (primary) hypertension Condition: DONAVON Schaffer MD July 28, 2018 12:06
[2018-07-28] MEDS ORDERED: ENALAPRILAT 1.25 MG INJ IV ONE (12:30)
[2018-07-28] MEDS ORDERED: FUROSEMIDE 40 MG INJ IV ONE (12:30)
[2018-07-28] MEDS ORDERED: FURO-109 PO (13:38)
[2018-07-28] MEDS ORDERED: NITROGLYCERIN (SL) 0.4 MG TAB SL ONE (14:00)
[2018-07-28 15:05] VITALS: BP 150/105; PULSE 92; RESP 17
== END 2018-07-28 15:05 | disposition home or self-care (01) ==
LOC: E/R 10:30
DX: I50.43 Acute on chronic combined systolic (congestive) and diastolic (congestive) heart failure (principal); I12.9 Hypertensive chronic kidney disease with stage 1 through stage 4 chronic kidney disease, or unspecified chronic kidney disease; N18.9 Chronic kidney disease, unspecified; Z87.891 Personal history of nicotine dependence
CPT/HCPCS: 36415; 71045; 80053; 83690; 83880; 84484; 85025; 93005; 96374; 96375; J1940; Z7502; Z7610

== ENCOUNTER 2018-07-31 00:11 | Emergency (ER) | payer OTHER ==
[~2018-07-31] VITALS: Ht 175.3 cm; Wt 77.2 kg
[~2018-07-31 00:11] MED LIST changes: -AMLO5TAB4 PO; -ASPI-817 PO; -ATOR40TA68 PO; +FURO-109 PO; -LEVE10006 PO; -POTA10TA37 PO
[2018-07-31 00:31] VITALS: Ht 175.3 cm; Wt 77.2 kg
[2018-07-31] MEDS ORDERED: IPRATROPIUM (NEB) 0.5 MG/2.5 ML AMP NEB STA (02:58)
[2018-07-31] MEDS ORDERED: ALBUTEROL 0.083% (NEB) 2.5 MG/3 ML AMP NEB STA (02:58)
[2018-07-31] MEDS ORDERED: ACETAMINOPHEN 500 MG TAB PO STA (03:00)
[2018-07-31] MEDS ORDERED: D-ME473S2 PO (03:45)
[2018-07-31] MEDS ORDERED: AZIT250T PO (03:45)
[2018-07-31] MEDS ORDERED: ALBU8.5H8 INH (03:45)
[2018-07-31] MEDS ORDERED: MED4DP PO (03:45)
--- NOTE | 2018-07-31 03:53 | ERD ---
ER Documentation Chief Complaint Chief Complaint cough x 3 days. also c/o headache HPI 33-year-old male with history of CKD, CHF and tobacco abuse who presents to the ED complaining of progressively worsening productive cough x3 days. Patient was seen here a few days ago and states his symptoms were viral. He states he still having his cough and wants medications for this. He is also complaining of a diffuse headache and chest wall pain, worse when coughing. He states he feels like his chest is tight and feels short of breath. Denies any numbness or tingling focal weakness. Denies any orthopnea. Denies leg swelling. No fevers or chills. Has no other complaints. ROS All systems reviewed and are negative except as per history of present illness. Medications Home Meds Active Scripts Methylprednisolone* (Medrol* DOSE PACK) 4 Mg/Dose-Pack Tab.ds.pk, 4 MG PO . DIRECTED, #1 PACKET Prov:ROXANNAIGRIKISTEPHAN ECHOLS-C 07/31/18 Dextromethorphan Hb-Promethazine Hcl* (Promethazine DM* Syrup) 473 Ml Syrup, 5 ML PO Q6 PRN for COUGH for 7 Days, ML Prov:STEPHAN WHIPPLE-C 07/31/18 Azithromycin* (Zithromax*) 250 Mg Tablet, 250 MG PO .ZPACK DIRECTED, #6 TAB TAKE 500 MG (2 TABS) THE FIRST DAY THEN 250 MG (1 TAB) DAYS 2-5 Prov:STEPHAN WHIPPLE-C 07/31/18 Albuterol Sulfate* (Proair HFA*) 8.5 Gm Hfa.aer.ad, 2 PUFF INH Q4H PRN for WHEEZING AND SOB, #1 INHALER Prov:STEPHAN WHIPPLE-C 07/31/18 Furosemide* (Lasix*) 40 Mg Tablet, 40 MG PO DAILY, #30 TAB Prov:DONAVON TOBIAS MD 07/28/18 Amlodipine Besylate* (Amlodipine Besylate*) 5 Mg Tablet, 5 MG PO BID for 60 Days, #120 TAB 5 Refills Prov:BRIANA BRADFORD MD 07/26/18 Clonidine Hcl* (Catapres*) 0.2 Mg Tablet, 0.2 MG PO Q8 for 60 Days, #180 TAB 5 Refills Prov:BRIANA BRADFORD MD 07/26/18 Levetiracetam* (Keppra*) 500 Mg Tablet, 500 MG PO BID for 60 Days, #30 TAB Prov:BRIANA BRADFORD MD 07/26/18 Multivit/Ca Carb/B Cmplx/Fa* (Mee-Patt*) 1 Tab Tab, 1 TAB PO DAILY for 90 Days, #90 TAB 4 Refills Prov:BRIANA BRADFORD MD 07/26/18 Furosemide* (Furosemide*) 40 Mg Tablet, 40 MG PO DAILY for 30 Days, #30 TAB Prov:BRIANA BRADFORD MD 07/26/18 Carvedilol* (Carvedilol*) 25 Mg Tablet, 25 MG PO BID for 60 Days, #120 TAB 5 Refills Prov:BRIANA BRADFORD MD 07/26/18 Hydralazine Hcl* (Hydralazine Hcl*) 100 Mg Tablet, 100 MG PO BID for 60 Days, #120 TAB 6 Refills Prov:BRIANA BRADFORD MD 07/26/18 Discontinued Reported Medications Atorvastatin* (Atorvastatin*) 40 Mg Tablet, 40 MG PO QHS, #30 TAB 04/04/18 Levetiracetam* (Levetiracetam*) 1,000 Mg Tablet, 1000 MG PO BID, TAB 04/04/18 Amlodipine Besylate* (Norvasc*) 5 Mg Tablet, 5 MG PO DAILY, TAB 04/04/18 Aspirin* (Aspirin* EC) 81 Mg Tablet.dr, 81 MG PO DAILY, TAB 04/04/18 Discontinued Scripts Potassium Chloride* (K-Dur*) 10 Meq Tab.prt.sr, 10 MEQ PO DAILY, #20 TAB Prov:DONAVON FAIRBANKS MD 04/04/18 Allergies Allergies: Coded Allergies: No Known Allergy (Unverified , 07/28/18) PMhx/Soc History of Surgery: No Anesthesia Reaction: No Hx Neurological Disorder: Yes (SEIZURES) Hx Respiratory Disorders: No Hx Cardiac Disorders: Yes (CHF, HTN) Hx Psychiatric Problems: No Hx Miscellaneous Medical Probl: Yes (CHRONIC KIDNEY DISEASE) Hx Alcohol Use: Yes Hx Substance Use: No (former use) Hx Tobacco Use: Yes Smoking Status: Current every day smoker Physical Exam Vitals Vital Signs Date Temp Pulse Resp B/P (MAP) Pulse Ox O2 O2 Flow FiO2 Time Delivery Rate 07/31/18 76 18 97 21 03:11 07/31/18 99.4 72 18 140/90 99 00:31 (107) Physical Exam Const: No acute distress; + smells like marijuana. Head: Atraumatic Eyes: Normal Conjunctiva. ENT: Normal External Ears, Nose and Mouth. +Posterior OP erythema. No tonsillar edema or exudates. Neck: Full range of motion. No meningismus. Resp: + Course breath sounds. No rhonchi, rales or wheezing. Cardio: Regular rate and rhythm, no murmurs Skin: No petechiae or rashes Back: No midline or flank tenderness Ext: No cyanosis, or edema Neur: Awake and alert Psych: Normal Mood and Affect Results 24 hrs Current Medications Medications Dose Sig/Jen Start Time Status Last (Trade) Ordered Route PRN Stop Time Admin Dose Reason Admin Albuterol 2.5 mg ONCE STAT 07/31/18 DC 07/31/18 (Proventil NEB 02:58 03:11 0.083% (Neb)) 07/31/18 03:00 Ipratropium 0.5 mg ONCE STAT 07/31/18 DC 07/31/18 [place] NEB 02:58 03:10 (Atrovent 07/31/18 03:00 0.02% (Neb)) 1,000 mg ONCE STAT 07/31/18 DC 07/31/18 Acetaminophen PO 03:00 03:07 (Tylenol 07/31/18 03:01 Tab) 1 tab ONCE ONCE 07/31/18 Acetaminophen PO 04:00 / 07/31/18 04:01 Hydrocodone Bitart ([place] (5/325)) Procedures/[facility] LABS & DIAGNOSTIC IMAGING: [None] ED COURSE: The patient was given albuterol and Atrovent breathing treatments. The medication was well tolerated and the patient had market improvement in symptoms. The patient remained stable throughout ED course. MEDICAL DECISION MAKIN-year-old male with history of CHF and CKD who presents for the third time this week with complaints of a cough. Has no hypoxia here. He has no fever. Vital signs are stable. Lung exam is essentially unremarkable patient is complaining of chest tightness and subjective wheeze. He felt much better status post 1 treatment of albuterol inhaler. Given his history of CHF and CKD will treat prophylactically for acute bacterial bronchitis. I will suspicion for pneumonia. He was given Rx azithromycin as well as other supportive medications. I recommended he stop smoking marijuana and cigarettes as this could be worsening his symptoms. He was told to follow-up with his regular doctor in 1 week. Return here for any new or worsening symptoms. PRESCRIPTIONS: Albuterol inhaler, promethazine DM, azithromycin, Medrol Dosepak SPECIALIST FOLLOW UP RECOMMENDED: None Patient has been advised to follow up with primary care in 1-2 days. Smoking Cessation Therapy: Pt. was lectured for greater than 3 minutes on the health risks of continued smoking and the benefits of cessation. Departure Diagnosis: Primary Impression: Bronchitis Additional Impression: Headache Headache type: unspecified Headache chronicity pattern: unspecified pattern Intractability: not intractable Qualified Codes: R51 - Headache Condition: Stable Patient Instructions: Self-Care for Headaches, Bronchitis With Wheezing (Child) Additional Instructions: You must not smoke until you are feeling better. Smoking can worsen your symptoms. Take the antibiotics, inhaler and steroid pack for the next 3 days. Follow-up with your regular doctor, return here for new or worsening symptoms. STEPHAN WHIPPLE PA-C July 31, 2018 03:53
[2018-07-31] MEDS ORDERED: HYDROCODONE/APAP (5/325) TAB PO ONE (04:00)
[2018-07-31 04:12] VITALS: BP 162/110; PULSE 65; RESP 18
== END 2018-07-31 04:15 | disposition home or self-care (01) ==
LOC: FTE 00:11
DX: J40 Bronchitis, not specified as acute or chronic (principal); I13.0 Hypertensive heart and chronic kidney disease with heart failure and stage 1 through stage 4 chronic kidney disease, or unspecified chronic kidney disease; I50.9 Heart failure, unspecified; N18.9 Chronic kidney disease, unspecified; F17.210 Nicotine dependence, cigarettes, uncomplicated
CPT/HCPCS: 94664; Z7502; Z7610

== ENCOUNTER 2018-10-22 15:52 | Inpatient (IN) | payer OTHER ==
[~2018-10-22] VITALS: Ht 175.3 cm; Wt 77.7 kg
[~2018-10-22 15:52] MED LIST changes: +ALBU8.5H8 INH; +ASPI-817 PO; +AZIT250T PO; +D-ME473S2 PO; +HYDR-3672 PO; +HYDR-4012 PO; +MED4DP PO; +Nicotine (14 Mg/24 Hr) TRANSDERM
[2018-10-22] MEDS ORDERED: SOD CHLORIDE 0.9% 500 ML IV STA (16:28)
[2018-10-22] MEDS ORDERED: ASPIRIN 81 MG TAB PO ONE (16:30)
[2018-10-22] MEDS ORDERED: NITROGLYCERIN (SL) 0.4 MG TAB SL ONE (16:30)
[2018-10-22] MEDS ORDERED: NICARDipine HCL 30 MG CAPSULE PO ONE (16:30)
[2018-10-22] MEDS ORDERED: niCARdipine-NS 0.1MG/ML DRIP 200 ML IV SCH (17:30)
[2018-10-22] MEDS ORDERED: FUROSEMIDE 40 MG INJ IV ONE (17:30)
[2018-10-22] MEDS ORDERED: ACETAMINOPHEN 325 MG TAB PO PRN (18:30)
[2018-10-22] MEDS ORDERED: IBUPROFEN 600 MG TAB PO ONE (18:30)
[2018-10-22] MEDS ORDERED: LORAZEPAM 2 MG INJ IV PRN (18:30)
[2018-10-22] MEDS ORDERED: NITROGLYCERIN (SL) 0.4 MG TAB SL PRN (18:30)
[2018-10-22] MEDS ORDERED: ALBUTEROL/IPRATROPIUM (NEB) 3 ML AMP HHN PRN (18:30)
[2018-10-22] MEDS ORDERED: DOCUSATE SODIUM 100 MG CAP PO PRN (18:30)
[2018-10-22] MEDS ORDERED: MAGNESIUM HYDROXIDE 30ML CUP PO PRN (18:30)
[2018-10-22] MEDS ORDERED: ONDANSETRON 4 MG INJ IV PRN (18:30)
[2018-10-22] MEDS ORDERED: NACL 0.9% 3 ML SYG IV SCH (18:30)
[2018-10-22] MEDS ORDERED: IBUPROFEN 600 MG TAB ONE (18:33)
[2018-10-22] MEDS: SOD CHLORIDE 0.45% 1,000 ML IV SCH (19:24)
[2018-10-22] MEDS: ENOXAPARIN 80 MG/0.8 ML SYG SC SCH (20:50)
[2018-10-22] MEDS: LEVETIRACETAM 500 MG TAB PO SCH (20:51)
[2018-10-23] VITALS (7 sets, daily range): BP systolic 157–198; BP diastolic 96–120; PULSE 55–74; RESP 20–21; Ht 175.3 cm; Wt 77.7 kg
[2018-10-23] MEDS: POTASSIUM CHLORIDE 100 ML IVPB SCH ×2 (01:33→05:02)
[2018-10-23] MEDS: HYDROCODONE/APAP (5/325) TAB PO PRN ×2 (01:40→21:50)
[2018-10-23] MEDS: morphine 2 MG INJ IV PRN ×2 (05:08→23:14)
[2018-10-23] MEDS: MULTIVIT/CA CARB/B CMPLX/FA TAB PO SCH (08:14)
[2018-10-23] MEDS: LEVETIRACETAM 500 MG TAB PO SCH ×2 (08:14→21:42)
[2018-10-23] MEDS: ASPIRIN (EC) 325 MG TAB PO SCH (08:14)
[2018-10-23] MEDS: hydrALAzine 20 MG INJ IV PRN ×2 (08:15→19:18)
[2018-10-23] MEDS: NICOTINE (14 MG/24 HR) PATCH TRANSDERM SCH (09:00)
[2018-10-23] MEDS: ENOXAPARIN 80 MG/0.8 ML SYG SC SCH (22:21)
[2018-10-23] MEDS: SOD CHLORIDE 0.45% 1,000 ML IV SCH (23:59)
[2018-10-24] VITALS (10 sets, daily range): BP systolic 175–210; BP diastolic 97–128; PULSE 61–89; RESP 17–22
[2018-10-24] MEDS ORDERED: SOD CHLORIDE 0.9% 250 ML IV ONE (00:30)
[2018-10-24] MEDS: hydrALAzine 20 MG INJ IV PRN ×2 (02:09→08:38)
[2018-10-24] MEDS: morphine 2 MG INJ IV PRN (06:36)
[2018-10-24] MEDS: ASPIRIN (EC) 325 MG TAB PO SCH (08:38)
[2018-10-24] MEDS: MULTIVIT/CA CARB/B CMPLX/FA TAB PO SCH (08:38)
[2018-10-24] MEDS: LEVETIRACETAM 500 MG TAB PO SCH ×2 (08:38→20:11)
[2018-10-24] MEDS: NICOTINE (14 MG/24 HR) PATCH TRANSDERM SCH (08:41)
[2018-10-24] MEDS: HYDROCODONE/APAP (5/325) TAB PO PRN ×2 (08:46→21:21)
[2018-10-24] MEDS: SOD CHLORIDE 0.45% 1,000 ML IV SCH (08:47)
[2018-10-24] MEDS ORDERED: POTASSIUM CHLORIDE (SR) 20 MEQ TAB PO STA (09:31)
[2018-10-24] MEDS: ENOXAPARIN 80 MG/0.8 ML SYG SC SCH (20:37)
[2018-10-25] VITALS (7 sets, daily range): BP systolic 143–184; BP diastolic 87–131; PULSE 55–67; RESP 18–20
[2018-10-25] MEDS: hydrALAzine 20 MG INJ IV PRN ×2 (04:27→09:58)
[2018-10-25] MEDS: HYDROCODONE/APAP (5/325) TAB PO PRN ×2 (04:30→21:12)
[2018-10-25] MEDS: NICOTINE (14 MG/24 HR) PATCH TRANSDERM SCH (09:00)
[2018-10-25] MEDS: ASPIRIN (EC) 325 MG TAB PO SCH (09:55)
[2018-10-25] MEDS: LEVETIRACETAM 500 MG TAB PO SCH ×2 (09:55→21:08)
[2018-10-25] MEDS: MULTIVIT/CA CARB/B CMPLX/FA TAB PO SCH (09:55)
[2018-10-25] MEDS ORDERED: POTASSIUM CHLORIDE (SR) 20 MEQ TAB PO STA (09:59)
[2018-10-25] MEDS ORDERED: AMLODIPINE 5 MG TAB PO SCH (10:00)
[2018-10-25] MEDS: AMLODIPINE 5 MG TAB PO SCH (21:09)
[2018-10-25] MEDS: ENOXAPARIN 80 MG/0.8 ML SYG SC SCH (21:34)
[2018-10-25] MEDS: morphine 2 MG INJ IV PRN (23:00)
[2018-10-26] VITALS: BP 164/102; PULSE 64; RESP 18
[2018-10-26] MEDS: HYDROCODONE/APAP (5/325) TAB PO PRN (03:10)
[2018-10-26] MEDS: hydrALAzine 20 MG INJ IV PRN (03:11)
[2018-10-26 04:32] VITALS: BP 157/96; PULSE 63; RESP 18
[2018-10-26] MEDS: morphine 2 MG INJ IV PRN ×2 (04:36→08:37)
[2018-10-26 04:46] VITALS: BP 161/95; PULSE 64; RESP 18
[2018-10-26 07:11] VITALS: BP 157/92; PULSE 74; RESP 18
[2018-10-26] MEDS: AMLODIPINE 5 MG TAB PO SCH (08:35)
[2018-10-26] MEDS: MULTIVIT/CA CARB/B CMPLX/FA TAB PO SCH (08:35)
[2018-10-26] MEDS: ASPIRIN (EC) 325 MG TAB PO SCH (08:35)
[2018-10-26] MEDS: LEVETIRACETAM 500 MG TAB PO SCH (08:36)
[2018-10-26] MEDS: NICOTINE (14 MG/24 HR) PATCH TRANSDERM SCH (08:42)
[2018-10-26 11:11] VITALS: BP 145/89; PULSE 59; RESP 18
[2018-10-26] MEDS ORDERED: SOD FERRIC GLUC COMPLX 125 MG in SOD CHLORIDE 0.9% 100 ML IVPB ONE (12:00)
== END 2018-10-26 15:00 | disposition home or self-care (01) | DRG 281 ==
LOC: E/R 15:52 → TEL 17:45
PROVIDERS: ADMIT Hospitalist; ATTEND Hospitalist
DX: I21.4 Non-ST elevation (NSTEMI) myocardial infarction (principal); I13.2 Hypertensive heart and chronic kidney disease with heart failure and with stage 5 chronic kidney disease, or end stage renal disease; N18.5 Chronic kidney disease, stage 5; N17.9 Acute kidney failure, unspecified; I16.1 Hypertensive emergency; I42.9 Cardiomyopathy, unspecified; F17.210 Nicotine dependence, cigarettes, uncomplicated; G40.909 Epilepsy, unspecified, not intractable, without status epilepticus; D63.1 Anemia in chronic kidney disease; I16.0 Hypertensive urgency; I50.9 Heart failure, unspecified; I25.2 Old myocardial infarction; Z95.5 Presence of coronary angioplasty implant and graft; Z82.49 Family history of ischemic heart disease and other diseases of the circulatory system; Z86.79 Personal history of other diseases of the circulatory system
CPT/HCPCS: 36415; 71045; 80048; 80061; 80307; 81001; 81003; 82533; 82550; 82553; 82570; 83036; 83540; 83735; 83880; 84100; 84132; 84439; 84443; 84484; 85025; 93005; 93306; 93976; 96365; 96375; J0360; J1940; J2270; J2916; J3480; J7040